=== PATIENT | male | born 1985 | race Caucasian/White ===

== ENCOUNTER 2019-04-06 22:05 | Emergency (ER) | payer OTHER ==
[2019-04-06 22:17] VITALS: BMI 31.3
[2019-04-06] MEDS ORDERED: ACETAMINOPHEN 500 MG TABLET (FP) PO ONE (23:25)
--- NOTE | 2019-04-06 23:25 | PDOC ---
*Physical Exam - Vital Signs Last Vital Signs Temp Pulse Resp BP Pulse Ox 98.0 F 104 H 18 125/82 98 04/06/19 22:14 04/06/19 22:14 04/06/19 22:14 04/06/19 22:14 04/06/19 22:14 Medical Decision Making - Medical Decision Making 04/06/19 23:25 Patient seen by the advanced practice provider under my supervision. Ancillary testing reviewed as necessary. I agree with plan as outlined by the advanced practice provider. Discharge - Discharge Information Problems reviewed: Yes Clinical Impression/Diagnosis: Foot pain, left Condition: Stable Disposition: HOME - Follow up/Referral Referrals: Bakari Pryor DPM [Staff Physician] - - Patient Discharge Instructions Additional Instructions: Take Tylenol as needed for pain. You have been given a referral for podiatry. Call to schedule an appointment for reevaluation. Return to the emergency department for any new or worsening symptoms. Thank you very much for choosing us to provide your emergent healthcare needs. - Post Discharge Activity
[2019-04-06] MEDS ORDERED: ACETAMINOPHEN 325 MG TABLET (FP) ONE (23:45)
[2019-04-07] MEDS ORDERED: ACETAMINOPHEN 500 MG TABLET (FP) PO ONE (00:01)
--- NOTE | 2019-04-07 00:57 | PDOC ---
History of Present Illness - General Chief Complaint: Wound Stated Complaint: SWOLLEN FEET Time Seen by Provider: 04/06/19 23:20 History Source: Patient Exam Limitations: No Limitations - History of Present Illness Initial Comments: 04/07/19 00:52 HISTORY OF PRESENT ILLNESS: 34-year-old male past medical history of diabetes presents emergency department for evaluation of left foot pain for 1 week after being stepped on. Patient noted increased pain to the MTP of the third toe of the left foot. He denies any wounds, redness, discharge or swelling. No recent travel or sick contacts. PAST MEDICAL HISTORY: NIDDM SURGICAL HISTORY: Left first and second toe amputation ALLERGIES: No known drug allergies REVIEW OF SYSTEMS General/Constitutional: Denies fever or chills. Denies weakness, weight change. HEENT: Denies change in vision. Denies ear pain or discharge. Denies sore throat. Cardiovascular: Denies chest pain or shortness of breath. Respiratory: Denies cough, wheezing, or hemoptysis. Gastrointestinal: Denies nausea, vomiting, diarrhea or constipation. Denies rectal bleeding. Genitourinary: Denies dysuria, frequency, or change in urination. Musculoskeletal: See HPI Skin and breasts: Denies rash or easy bruising. Neurologic: Denies headache, vertigo, loss of consciousness, or loss of sensation. Psychiatric: Denies depression or anxiety. Endocrine: Denies increased thirst. Denies abnormal weight change. Hematologic/Lymphatic: Denies anemia, easy bleeding, or history of blood clots. Allergic/Immunologic: Denies hives or skin allergy. Denies latex allergy. PHYSICAL EXAM General Appearance: Well-appearing, appropriately dressed. No apparent distress , no intoxication. Vascular Pulses: Dorsalis-Pedis (R): 2+, Dorsalis-Pedis (L): 2+ Musculoskeletal/Extremities: Normal inspection. FROM of all extremities, normal capillary refill. Pelvis Stable. No CVA tenderness. No pedal edema, swelling, erythema or deformity. First and second toes on the left foot previous amputation. No erythema, open wounds, discharge or drainage present. Tender to palpation over the MTP of the third digit. No bony deformity, crepitus or step-off present. Neurovascularly intact. Integumentary: Appropriate color, dry, warm. No cyanosis, erythema, jaundice or rash Neurologic: instructional systems designer II-XII intact. Fully oriented, alert. Appropriate mood/affect. Motor strength 5/5. No appreciable EOM palsy, facial droop or sensory deficit. Past History - Past Medical History Allergies/Adverse Reactions: Allergies Allergy/AdvReac Type Severity Reaction Status Date / Time No Known Allergies Allergy Verified 04/06/19 22:14 - Psycho Social/Smoking Cessation Hx Smoking History: Current every day smoker Number of Cigarettes Smoked Daily: 20 Information on smoking cessation initiated: No Hx Alcohol Use: Yes (daily) Drug/Substance Use Hx: Yes (marijuana, coccaine) *Physical Exam - Vital Signs Last Vital Signs Temp Pulse Resp BP Pulse Ox 98.7 F 112 H 20 131/79 98 04/06/19 22:30 04/06/19 22:30 04/06/19 22:30 04/06/19 22:30 04/06/19 22:30 ED Treatment Course - RADIOLOGY Radiology Studies Ordered: Category Date Time Status FOOT-LEFT [RAD] Stat Radiology 04/06/19 23:24 Taken - Medications Given in the ED: ED Medications Discontinued Medications Generic Name Dose Route Start Last Admin Trade Name Beverly PRN Reason Stop Dose Admin Acetaminophen 1,000 mg 04/06/19 23:25 04/07/19 00:08 Tylenol - PO 04/07/19 00:01 Not Given ONCE ONE Acetaminophen 975 mg 04/07/19 00:01 04/07/19 00:07 Tylenol - PO 04/07/19 00:02 975 mg ONCE ONE Administration Medical Decision Making - Medical Decision Making 04/07/19 00:56 A/P: 34-year-old diabetic male with left foot pain after he was stepped on 1 week ago Tenderness to the MTP of the left third toe No evidence of infection Neurovascularly intact X-rays read by me: No acute fractures or dislocations are present Discharge home to follow-up with his primary doctor. Podiatry referral. Discharge - Discharge Information Problems reviewed: Yes Clinical Impression/Diagnosis: Foot pain, left Condition: Stable Disposition: HOME - Admission No - Follow up/Referral Referrals: Bakari Pryor DPM [Staff Physician] - - Patient Discharge Instructions Additional Instructions: Take Tylenol as needed for pain. You have been given a referral for podiatry. Call to schedule an appointment for reevaluation. Return to the emergency department for any new or worsening symptoms. Thank you very much for choosing us to provide your emergent healthcare needs. - Post Discharge Activity
[2019-04-07] MEDS ORDERED: KETOROLAC TROMETHAMINE 30 MG/1 ML VIAL IM ONE (01:15)
[2019-04-07] MEDS ORDERED: KETOROLAC TROMETHAMINE 30 MG/1 ML VIAL ONE (01:16)
[2019-04-07 01:33] VITALS: BP 123/79; PULSE 82; TEMP 99.1
== END 2019-04-07 01:25 | disposition home or self-care (01) ==
LOC: JER 22:05
PROC: 3E0233Z Introduction of Anti-inflammatory into Muscle, Percutaneous Approach (ICD-10-PCS; principal; 2019-04-06)
DX: M79.672 Pain in left foot (principal)
CPT/HCPCS: 73630-TC-LT; 96372; 99284-25

== ENCOUNTER 2020-01-02 18:18 | Emergency (ER) | payer OTHER ==
[2020-01-02 18:53] VITALS: BMI 31.3
[2020-01-02] MEDS ORDERED: ONDANSETRON 4 MG/2 ML VIAL IVPUSH ONE (19:27)
[2020-01-02] MEDS ORDERED: FOLIC ACID INJECTION - 1 MG, THIAMINE HCL 100 MG, MULTIVIT INJECTION ADULT 10 ML in SOD... IVPB ONE (19:27)
[2020-01-02] MEDS ORDERED: PANTOPRAZOLE SODIUM 40 MG VIAL IVPUSH ONE (19:27)
[2020-01-02] MEDS ORDERED: PANTOPRAZOLE SODIUM 40 MG VIAL ONE (20:00)
[2020-01-02 20:04] LABS: URINE APPEARANCE CLEAR; URINE BILIRUBIN NEGATIVE (NEGATIVE); URINE COLOR YELLOW; URINE GLUCOSE (UA) TRACE (NEGATIVE); URINE KETONE NEGATIVE (NEGATIVE); URINE LEUK ESTERASE NEGATIVE (NEGATIVE); URINE NITRITE NEGATIVE (NEGATIVE); URINE PROTEIN NEGATIVE (NEGATIVE)
[2020-01-02 20:17] LABS: OPIATES, URI NEGATIVE ng/ml (CUTOFF=300); URINE BENZODIAZEPINES NEGATIVE ng/ml (CUTOFF=200)
[2020-01-02 20:18] LABS: PHENCYCLIDINE,URINE NEGATIVE ng/ml (CUTOFF=25); URINE BARBITURATES NEGATIVE ng/ml (CUTOFF=200)
[2020-01-02 20:25] LABS: METHADONE, UR NEGATIVE ng/ml (CUTOFF=300); URINE AMPHETAMINES NEGATIVE ng/ml (CUTOFF=500)
[2020-01-02 20:29] LABS: BASO % 0.8 % (0-2.0); EOS % 1.7 % (0-4.5); HEMATOCRIT 40.5 % (35.4-49); HEMOGLOBIN 14.1 GM/dL (11.7-16.9); LYMPH % 24.2 % (8-40); MEAN CELL VOLUME 94.5 fl (80-96); MEAN PLT VOLUME 10.1 fl (7.5-11.1); MONO % 10.4 % (3.8-10.2); NEUT % 62.9 % (42.8-82.8); PLATELET COUNT 150 K/MM3 (134-434); RBC 4.28 M/mm3 (4.00-5.60); RDW 12.8 % (11.9-15.9); WHITE BLOOD COUNT 4.4 K/mm3 (4.0-10.0)
[2020-01-02 20:30] LABS: COCAINE, UR POSITIVE ng/ml (CUTOFF=300)
[2020-01-02 20:39] LABS: VENOUS BASE EXCESS -3.1 mmol/L (-2-2); VENOUS O2 SATURATION 54.3 % (70-80); VENOUS PH 7.346 (7.310-7.410)
[2020-01-02 20:50] LABS: POTASSIUM 4.8 mmol/L (3.5-5.1)
[2020-01-02 20:54] LABS: ALBUMIN 3.7 g/dl (3.4-5.0); CALCIUM 9.1 mg/dL (8.5-10.1)
[2020-01-02 20:58] LABS: CREATININE 0.8 mg/dL (0.55-1.3)
[2020-01-02 20:59] LABS: BILIRUBIN,TOTAL 0.4 mg/dL (0.2-1); TOT PROT 7.1 g/dl (6.4-8.2)
[2020-01-02] MEDS ORDERED: MAG HYDROX/AL HYDROX/SIMETH 30 ML UNIT-DOSE CUP PO ONE (22:27)
[2020-01-02] MEDS ORDERED: MAG HYDROX/AL HYDROX/SIMETH 30 ML UNIT-DOSE CUP ONE (22:31)
[2020-01-02 23:47] VITALS: BP 122/85; PULSE 73; TEMP 99.6
== END 2020-01-02 23:47 | disposition home or self-care (01) ==
LOC: JER 18:18
PROC: 3E033GC Introduction of Other Therapeutic Substance into Peripheral Vein, Percutaneous Approach (ICD-10-PCS; principal; 2020-01-02)
PROC: 3E033GC Introduction of Other Therapeutic Substance into Peripheral Vein, Percutaneous Approach (ICD-10-PCS; 2020-01-02)
PROC: 3E033GC Introduction of Other Therapeutic Substance into Peripheral Vein, Percutaneous Approach (ICD-10-PCS; 2020-01-02)
DX: K29.20 Alcoholic gastritis without bleeding (principal); F14.10 Cocaine abuse, uncomplicated
CPT/HCPCS: 36415; 71045-TC-FY; 80053; 80307; 81003; 82803; 83690; 83735; 85025; 93005; 93010; 99285-25

== ENCOUNTER 2020-09-15 13:46 | Emergency (ER) | payer OTHER ==
[2020-09-15 13:52] VITALS: TEMP 97.8; BMI 31.3
[2020-09-15] MEDS ORDERED: DALBAVANCIN HCL 1,500 MG in DEXTROSE 5%-WATER - 500 ML IVPB ONE (14:27)
[2020-09-15 14:39] LABS: BASO % 0.8 % (0-2.0); EOS % 2.3 % (0-4.5); HEMATOCRIT 39.3 % (35.4-49); HEMOGLOBIN 13.5 GM/dL (11.7-16.9); LYMPH % 20.9 % (8-40); MCH 31.1 pg (25.7-33.7); MCHC 34.4 g/dl (32.0-35.9); MEAN CELL VOLUME 90.3 fl (80-96); MEAN PLT VOLUME 9.4 fl (7.5-11.1); MONO % 13.3 % (3.8-10.2); NEUT % 62.7 % (42.8-82.8); PLATELET COUNT 135 10^3/uL (134-434); RBC 4.35 M/mm3 (4.00-5.60); RDW 12.9 % (11.9-15.9); WHITE BLOOD COUNT 3.9 K/mm3 (4.0-10.0)
[2020-09-15] MEDS ORDERED: DALBAVANCIN HCL 500 MG VIAL (RESTRICTED TO ID ONLY) IVPB ONE ×2 (14:42→14:44)
[2020-09-15 15:21] LABS: ERYTHROCYTE SEDIMENTATION RATE 16 mm/hr (0-10)
[2020-09-15 16:02] LABS: ALBUMIN 3.9 g/dl (3.4-5.0); BILIRUBIN,TOTAL 0.3 mg/dL (0.2-1); BLOOD UREA NITROGEN 8.5 mg/dL (7-18); CALCIUM 9.3 mg/dL (8.5-10.1); CREATININE 0.8 mg/dL (0.55-1.3)
[2020-09-15] MEDS ORDERED: SODIUM CHLORIDE 0.9% 500 ML INFUS.BAG IV ONE (16:47)
[2020-09-15 16:48] VITALS: BP 144/84; PULSE 74
[2020-09-15 17:17] LABS: ALBUMIN 3.7 g/dl (3.4-5.0); BLOOD UREA NITROGEN 7.8 mg/dL (7-18); CALCIUM 8.8 mg/dL (8.5-10.1)
[2020-09-15 17:20] LABS: CREATININE 0.7 mg/dL (0.55-1.3)
[2020-09-15 17:22] LABS: BILIRUBIN,TOTAL 0.5 mg/dL (0.2-1); TOT PROT 7.7 g/dl (6.4-8.2)
[2020-09-16] MEDS ORDERED: INSULIN (NOVOLOG) ASPART 100 UNITS/ML 10ML VIAL SQ SCH (07:00)
[2020-09-16] MEDS ORDERED: Insulin (LOG) Aspart 100 UNITS/ML VIAL SQ ONE (17:08)
== END 2020-09-15 18:54 | disposition home or self-care (01) ==
LOC: JER 13:46
DX: L97.529 Non-pressure chronic ulcer of other part of left foot with unspecified severity (principal)
CPT/HCPCS: 36415; 73630-TC-LT; 80053; 82962; 83036; 83605; 85025; 85651; 86140; 87040; 99284-25; J0875

== ENCOUNTER 2020-09-28 06:13 | Inpatient (IN) | payer OTHER ==
[2020-09-28] MEDS ORDERED: ACETAMINOPHEN 1000 MG/100 ML VIAL (NON FORMULARY) IVPB ONE (07:32)
[2020-09-28] MEDS ORDERED: VANCOMYCIN 1 GM in D5W (PRE-DOCKED) 1,000 MG/250 ML IVPB ONE (07:32)
[2020-09-28 09:08] LABS: EOS % 4.7 % (0-4.5); HEMATOCRIT 40.8 % (35.4-49); HEMOGLOBIN 14.3 GM/dL (11.7-16.9); LYMPH % 38.5 % (8-40); MCH 32.2 pg (25.7-33.7); MEAN CELL VOLUME 92.1 fl (80-96); MEAN PLT VOLUME 10.1 fl (7.5-11.1); MONO % 10.8 % (3.8-10.2); PLATELET COUNT 153 10^3/uL (134-434); RBC 4.43 M/mm3 (4.00-5.60); RDW 12.9 % (11.9-15.9)
[2020-09-28 09:21] LABS: CHLORIDE 99 mmol/L (98-107); SODIUM 136 mmol/L (136-145)
[2020-09-28 09:22] LABS: CALCIUM 8.4 mg/dL (8.5-10.1)
[2020-09-28 09:23] LABS: ALBUMIN 4.1 g/dl (3.4-5.0); ANION GAP 12 MMOL/L (8-16); BLOOD UREA NITROGEN 6.6 mg/dL (7-18); CO2 24 mmol/L (21-32); GLUCOSE,RANDOM 329 mg/dL (74-106)
[2020-09-28 09:26] LABS: CREATININE 0.7 mg/dL (0.55-1.3); SGOT/AST 41 U/L (15-37); SGPT/ALT 43 U/L (13-61)
[2020-09-28 09:28] LABS: BILIRUBIN,TOTAL 0.3 mg/dL (0.2-1); TOT PROT 8.5 g/dl (6.4-8.2)
[2020-09-28 09:29] LABS: ALK PHOS 105 U/L (45-117)
[2020-09-28] MEDS ORDERED: SODIUM CHLORIDE 0.9% 500 ML INFUS.BAG IV ONE (09:31)
[2020-09-28] MEDS ORDERED: Insulin (LOG) Aspart 100 UNITS/ML VIAL SQ ONE (09:31)
[2020-09-28] MEDS ORDERED: INSULIN SLIDING SCALE (NOVOLOG) 1 VIAL SQ ONE ×2 (10:13→22:56)
[2020-09-28 10:22] LABS: ERYTHROCYTE SEDIMENTATION RATE 14 mm/hr (0-10)
[2020-09-28] MEDS: SODIUM CHLORIDE 1,000 ML IV SCH (11:39)
[2020-09-28] MEDS ORDERED: ACETAMINOPHEN 1000 MG/100 ML VIAL (NON FORMULARY) IVPB PRN (14:38)
[2020-09-28] MEDS: NICOTINE 14 MG/24 HOURS TOPICAL PATCH TD SCH (15:00)
[2020-09-28] MEDS: INSULIN SLIDING SCALE (NOVOLOG) 1 VIAL SQ SCH ×2 (17:07→23:03)
[2020-09-28] MEDS ORDERED: FAMOTIDINE 20 MG TABLET ONE (22:56)
[2020-09-28] MEDS: FAMOTIDINE 20 MG TABLET PO SCH (23:04)
[2020-09-28] MEDS ORDERED: ACETAMINOPHEN INJECTION 100 ML IVPB ONE (23:23)
[2020-09-29] MEDS: SODIUM CHLORIDE 1,000 ML IV SCH ×3 (01:56→21:09)
[2020-09-29] MEDS: INSULIN SLIDING SCALE (NOVOLOG) 1 VIAL SQ SCH ×4 (06:57→21:05)
[2020-09-29 07:47] LABS: INR 1.02 (0.83-1.09); PROTHROMBIN TIME (PATIENT) 12.5 SEC (9.7-13.0)
[2020-09-29 07:50] LABS: ACTIVATED PTT 28.7 SECONDS (25.2-36.5); EOS % 3.2 % (0-4.5); HEMATOCRIT 37.1 % (35.4-49); HEMOGLOBIN 12.7 GM/dL (11.7-16.9); MCH 31.4 pg (25.7-33.7); MCHC 34.2 g/dl (32.0-35.9); MEAN CELL VOLUME 91.7 fl (80-96); MEAN PLT VOLUME 9.8 fl (7.5-11.1); MONO % 10.8 % (3.8-10.2); PLATELET COUNT 112 10^3/uL (134-434); RBC 4.05 M/mm3 (4.00-5.60); RDW 12.9 % (11.9-15.9); WHITE BLOOD COUNT 4.7 K/mm3 (4.0-10.0)
[2020-09-29 07:57] LABS: CALCIUM 7.7 mg/dL (8.5-10.1)
[2020-09-29 07:58] LABS: ALBUMIN 3.2 g/dl (3.4-5.0); BLOOD UREA NITROGEN 11.4 mg/dL (7-18); MAGNESIUM 1.9 mg/dL (1.8-2.4)
[2020-09-29 08:01] LABS: CREATININE 0.5 mg/dL (0.55-1.3); PHOSPHOROUS 2.8 mg/dL (2.5-4.9)
[2020-09-29 08:02] LABS: BILIRUBIN,TOTAL 0.5 mg/dL (0.2-1)
[2020-09-29 08:03] LABS: TOT PROT 6.7 g/dl (6.4-8.2)
[2020-09-29] MEDS ORDERED: MAGNESIUM OXIDE 400 MG TABLET (FP) PO ONE ×2 (08:19→14:18)
[2020-09-29] MEDS ORDERED: MAGNESIUM SULF 50% (8.12 MEQ/2 ML-1 GM VIAL) IVPB ONE (10:10)
[2020-09-29] MEDS: NICOTINE 14 MG/24 HOURS TOPICAL PATCH TD SCH (10:56)
[2020-09-29] MEDS: MULTIVITAMINS (DAILY MVI) TABLET (FP) PO SCH (10:56)
[2020-09-29] MEDS: THIAMINE HCL 100 MG TABLET (FP) PO SCH (10:56)
[2020-09-29] MEDS: FOLIC ACID 1 MG TABLET (FP) PO SCH (10:56)
[2020-09-29] MEDS: FAMOTIDINE 20 MG TABLET PO SCH ×2 (10:56→21:05)
[2020-09-29] MEDS ORDERED: PT OWN MED DRAWER 7, Y5N ONE (15:09)
[2020-09-29] MEDS ORDERED: INSULIN (NOVOLOG) ASPART 100 UNITS/ML 10ML VIAL ONE ×2 (16:55→20:28)
[2020-09-29] MEDS: ACETAMINOPHEN 325 MG TABLET (FP) PO PRN (21:04)
[2020-09-30] MEDS: INSULIN SLIDING SCALE (NOVOLOG) 1 VIAL SQ SCH ×3 (06:00→17:28)
[2020-09-30] MEDS: SODIUM CHLORIDE 1,000 ML IV SCH ×2 (06:05→12:16)
[2020-09-30 09:00] LABS: BASO % 0.7 % (0-2.0); EOS % 4.5 % (0-4.5); HEMATOCRIT 39.2 % (35.4-49); HEMOGLOBIN 13.6 GM/dL (11.7-16.9); LYMPH % 27.7 % (8-40); MCHC 34.7 g/dl (32.0-35.9); MEAN CELL VOLUME 92.2 fl (80-96); MEAN PLT VOLUME 10.1 fl (7.5-11.1); MONO % 10.7 % (3.8-10.2); NEUT % 56.4 % (42.8-82.8); PLATELET COUNT 125 10^3/uL (134-434); RBC 4.25 M/mm3 (4.00-5.60); RDW 12.8 % (11.9-15.9)
[2020-09-30] MEDS: MULTIVITAMINS (DAILY MVI) TABLET (FP) PO SCH (09:02)
[2020-09-30] MEDS: THIAMINE HCL 100 MG TABLET (FP) PO SCH (09:02)
[2020-09-30] MEDS: FAMOTIDINE 20 MG TABLET PO SCH (09:02)
[2020-09-30] MEDS: FOLIC ACID 1 MG TABLET (FP) PO SCH (09:02)
[2020-09-30] MEDS: NICOTINE 14 MG/24 HOURS TOPICAL PATCH TD SCH (09:02)
[2020-09-30 09:14] LABS: CALCIUM 8.4 mg/dL (8.5-10.1)
[2020-09-30 09:15] LABS: MAGNESIUM 2.2 mg/dL (1.8-2.4)
[2020-09-30 09:21] LABS: CREATININE 0.6 mg/dL (0.55-1.3)
[2020-09-30 09:22] LABS: PHOSPHOROUS 2.8 mg/dL (2.5-4.9)
[2020-09-30] MEDS: ACETAMINOPHEN 325 MG TABLET (FP) PO PRN (12:10)
[2020-09-30 14:16] VITALS: BP 149/97; PULSE 74; TEMP 99.1
[2020-09-30 14:42] VITALS: BMI 28.0
== END 2020-09-30 18:38 | disposition home or self-care (01) | DRG 380 ==
LOC: JER 06:13 → MERGE 10:56 → JERBED 10:56 → J7W 09-29 01:37
PROVIDERS: ADMIT Internal Medicine; ATTEND Internal Medicine
DX: E11.621 Type 2 diabetes mellitus with foot ulcer (principal); L97.529 Non-pressure chronic ulcer of other part of left foot with unspecified severity; F10.10 Alcohol abuse, uncomplicated; F14.10 Cocaine abuse, uncomplicated; F12.10 Cannabis abuse, uncomplicated; F17.210 Nicotine dependence, cigarettes, uncomplicated; E11.65 Type 2 diabetes mellitus with hyperglycemia; Z79.84 Long term (current) use of oral hypoglycemic drugs; M71.22 Synovial cyst of popliteal space [Baker], left knee
CPT/HCPCS: 36415; 73630-TC-LT; 73718-TC-LT; 80048; 80053; 82962; 83735; 84100; 85025; 85610; 85651; 85730; 86140; 86850; 86900; 86901; 87040; 87070; 87186; 87205; 93005; 93010; 93971-TC; 99285-25; C9803; J0131; U0003; U0005

== ENCOUNTER 2020-10-05 02:09 | Emergency (ER) | payer OTHER ==
[2020-10-05 02:16] VITALS: BMI 28.0
[2020-10-05 04:34] LABS: BASO % 1.7 % (0-2.0); EOS % 4.4 % (0-4.5); HEMATOCRIT 39.4 % (35.4-49); HEMOGLOBIN 13.6 GM/dL (11.7-16.9); MCH 31.5 pg (25.7-33.7); MCHC 34.6 g/dl (32.0-35.9); MEAN CELL VOLUME 91.1 fl (80-96); MEAN PLT VOLUME 9.7 fl (7.5-11.1); MONO % 12.6 % (3.8-10.2); NEUT % 39.3 % (42.8-82.8); PLATELET COUNT 139 10^3/uL (134-434); RBC 4.32 M/mm3 (4.00-5.60); RDW 13.3 % (11.9-15.9)
[2020-10-05 04:35] LABS: VENOUS BASE EXCESS -0.5 mmol/L (-2-2); VENOUS O2 SATURATION 39.6 % (70-80); VENOUS PCO2 54.2 mmHg (38-52); VENOUS PH 7.311 (7.310-7.410)
[2020-10-05 04:50] LABS: INR 1.02 (0.83-1.09); PROTHROMBIN TIME (PATIENT) 12.5 SEC (9.7-13.0)
[2020-10-05 04:52] LABS: CHLORIDE 100 mmol/L (98-107); SODIUM 136 mmol/L (136-145)
[2020-10-05 04:54] LABS: CALCIUM 8.5 mg/dL (8.5-10.1)
[2020-10-05 04:55] LABS: ANION GAP 7 MMOL/L (8-16); BLOOD UREA NITROGEN 6.8 mg/dL (7-18); CO2 29 mmol/L (21-32); GLUCOSE,RANDOM 327 mg/dL (74-106)
[2020-10-05 04:58] LABS: CREATININE 0.8 mg/dL (0.55-1.3); SGOT/AST 36 U/L (15-37); SGPT/ALT 40 U/L (13-61)
[2020-10-05 04:59] LABS: BILIRUBIN,TOTAL 0.2 mg/dL (0.2-1)
[2020-10-05 05:00] LABS: TOT PROT 8.3 g/dl (6.4-8.2)
[2020-10-05] MEDS ORDERED: LACTATED RINGERS SOLUTION 1000 ML INFUS.BAG IV ONE (05:02)
[2020-10-05 05:09] LABS: ALBUMIN 4.2 g/dl (3.4-5.0); ALK PHOS 79 U/L (45-117)
[2020-10-05 07:52] VITALS: BP 98/62; PULSE 91; TEMP 98.2
== END 2020-10-05 10:35 | disposition home or self-care (01) ==
LOC: JER 02:09
DX: F10.10 Alcohol abuse, uncomplicated (principal); S09.90XA Unspecified injury of head, initial encounter; W01.0XXA Fall on same level from slipping, tripping and stumbling without subsequent striking against object, initial encounter
CPT/HCPCS: 36415; 70450-TC; 72125-TC; 80053; 82010; 82550; 82553; 82803; 82962; 84484; 85025; 85610; 85730; 99285-25

== ENCOUNTER 2020-10-26 01:24 | Emergency (ER) | payer OTHER ==
[2020-10-26 02:23] VITALS: BMI 29.2
[2020-10-26] MEDS ORDERED: CLINDAMYCIN HCL 150 MG CAPSULE (FP) PO ONE (04:00)
[2020-10-26] MEDS ORDERED: CLINDAMYCIN HCL 150 MG CAPSULE (FP) ONE (04:07)
[2020-10-26 04:26] LABS: BASO % 0.7 % (0-2.0); EOS % 2.9 % (0-4.5); HEMATOCRIT 38.6 % (35.4-49); HEMOGLOBIN 13.5 GM/dL (11.7-16.9); LYMPH % 37.1 % (8-40); MCH 31.5 pg (25.7-33.7); MEAN CELL VOLUME 90.2 fl (80-96); MONO % 9.6 % (3.8-10.2); NEUT % 49.7 % (42.8-82.8); PLATELET COUNT 122 10^3/uL (134-434); RBC 4.28 M/mm3 (4.00-5.60); RDW 13.3 % (11.9-15.9); WHITE BLOOD COUNT 5.4 K/mm3 (4.0-10.0)
[2020-10-26 04:41] LABS: ALBUMIN 3.8 g/dl (3.4-5.0); BLOOD UREA NITROGEN 6.9 mg/dL (7-18); CALCIUM 8.6 mg/dL (8.5-10.1)
[2020-10-26 04:44] LABS: CREATININE 0.7 mg/dL (0.55-1.3)
[2020-10-26 04:46] LABS: BILIRUBIN,TOTAL 0.2 mg/dL (0.2-1)
[2020-10-26 06:13] VITALS: BP 95/62; PULSE 79; TEMP 100
== END 2020-10-26 06:14 ==
LOC: JER 01:24
DX: L97.529 Non-pressure chronic ulcer of other part of left foot with unspecified severity (principal)
CPT/HCPCS: 36415; 73630-TC-LT; 80053; 85025; 87070; 87077; 87186; 87205; 99284-25

== ENCOUNTER 2021-05-15 23:30 | Inpatient (IN) | payer OTHER ==
[2021-05-16 01:38] LABS: BASO % 0.7 % (0-2.0); EOS % 2.9 % (0-4.5); HEMATOCRIT 38.1 % (35.4-49); MCH 30.6 pg (25.7-33.7); MCHC 34.2 g/dl (32.0-35.9); MEAN CELL VOLUME 89.4 fl (80-96); MEAN PLT VOLUME 9.9 fl (7.5-11.1); MONO % 12.5 % (3.8-10.2); NEUT % 56.9 % (42.8-82.8); PLATELET COUNT 125 10^3/uL (134-434); RBC 4.26 M/mm3 (4.00-5.60); RDW 14.9 % (11.9-15.9); WHITE BLOOD COUNT 3.8 K/mm3 (4.0-10.0)
[2021-05-16] MEDS ORDERED: PIPERACILLIN/TAZOB 4.5 GM 4.5 GM in DEXTROSE 5%-WATER 100 ML IVPB ONE (01:59)
[2021-05-16] MEDS ORDERED: VANCOMYCIN 1 GM in D5W (PRE-DOCKED) 1,000 MG/250 ML IVPB ONE (02:00)
[2021-05-16 02:12] LABS: PROTHROMBIN TIME (PATIENT) 11.5 SEC (9.7-13.0)
[2021-05-16] MEDS ORDERED: PIPERACILLIN/TAZOB 4.5 GM 4.5 GM/100 ML BAG IVPB ONE (02:12)
[2021-05-16] MEDS ORDERED: VANCOMYCIN 1 GRAM (PRE-DOCKED) 1,000 MG/250 ML BAG IVPB ONE (02:12)
[2021-05-16 02:15] LABS: ACTIVATED PTT 33.6 SECONDS (25.2-36.5)
[2021-05-16 02:17] LABS: CHLORIDE 102 mmol/L (98-107); SODIUM 136 mmol/L (136-145)
[2021-05-16 02:19] LABS: CALCIUM 9.4 mg/dL (8.5-10.1)
[2021-05-16 02:20] LABS: ALBUMIN 3.8 g/dl (3.4-5.0); ANION GAP 5 MMOL/L (8-16); BLOOD UREA NITROGEN 15.5 mg/dL (7-18); CO2 30 mmol/L (21-32); MAGNESIUM 2.3 mg/dL (1.8-2.4)
[2021-05-16 02:22] LABS: CREATININE 0.9 mg/dL (0.55-1.3); SGPT/ALT 24 U/L (13-61)
[2021-05-16 02:23] LABS: SGOT/AST 23 U/L (15-37)
[2021-05-16 02:24] LABS: BILIRUBIN,TOTAL 0.3 mg/dL (0.2-1)
[2021-05-16 02:25] LABS: ALK PHOS 113 U/L (45-117)
[2021-05-16 02:26] LABS: TOT PROT 7.4 g/dl (6.4-8.2)
[2021-05-16 02:33] LABS: GLUCOSE,RANDOM 461 mg/dL (74-106)
[2021-05-16] MEDS ORDERED: SODIUM CHLORIDE 0.9% 500 ML INFUS.BAG IV ONE (02:35)
[2021-05-16 03:03] LABS: ERYTHROCYTE SEDIMENTATION RATE 16 mm/hr (0-10)
[2021-05-16] MEDS ORDERED: LORazepam 1 MG TABLET PO PRN ×2 (04:34→09:54)
[2021-05-16] MEDS ORDERED: FOLIC ACID INJECTION - 1 MG, THIAMINE HCL 100 MG, MULTIVIT INJECTION ADULT 10 ML in SOD... IVPB ONE (04:53)
[2021-05-16] MEDS ORDERED: INSULIN (NOVOLOG) ASPART 100 UNITS/ML 10ML VIAL SQ ONE (04:55)
[2021-05-16] MEDS: INSULIN SLIDING SCALE (NOVOLOG) 1 VIAL SQ SCH ×4 (06:38→22:14)
[2021-05-16 06:47] LABS: ALBUMIN 3.4 g/dl (3.4-5.0); BLOOD UREA NITROGEN 13.8 mg/dL (7-18); CALCIUM 8.4 mg/dL (8.5-10.1)
[2021-05-16 06:50] LABS: CREATININE 0.7 mg/dL (0.55-1.3); PHOSPHOROUS 4.3 mg/dL (2.5-4.9)
[2021-05-16 06:52] LABS: BILIRUBIN,TOTAL 0.4 mg/dL (0.2-1); TOT PROT 6.6 g/dl (6.4-8.2)
[2021-05-16 06:56] VITALS: BMI 28.6
[2021-05-16] MEDS ORDERED: INSULIN (LEVEMIR) 100 UNITS/ML UNITS SQ SCH ×2 (07:00→22:00)
[2021-05-16 07:02] LABS: METHADONE, UR NEGATIVE (NEGATIVE); PHENCYCLIDINE,URINE NEGATIVE (NEGATIVE); URINE BENZODIAZEPINES NEGATIVE (NEGATIVE)
[2021-05-16 07:03] LABS: OPIATES, URI NEGATIVE (NEGATIVE); URINE BARBITURATES NEGATIVE (NEGATIVE)
[2021-05-16] MEDS ORDERED: THIAMINE HCL 200 MG/2 ML VIAL IVPB ONE ×2 (07:11→18:00)
[2021-05-16 07:39] LABS: COCAINE, UR POSITIVE (NEGATIVE); URINE AMPHETAMINES NEGATIVE (NEGATIVE)
[2021-05-16 08:06] LABS: BASO % 0.6 % (0-2.0); EOS % 3.1 % (0-4.5); HEMATOCRIT 36.2 % (35.4-49); HEMOGLOBIN 12.3 GM/dL (11.7-16.9); LYMPH % 30.1 % (8-40); MCH 30.2 pg (25.7-33.7); MCHC 33.9 g/dl (32.0-35.9); MEAN CELL VOLUME 89.1 fl (80-96); MEAN PLT VOLUME 10.1 fl (7.5-11.1); MONO % 12.5 % (3.8-10.2); NEUT % 53.7 % (42.8-82.8); PLATELET COUNT 114 10^3/uL (134-434); RBC 4.06 M/mm3 (4.00-5.60); RDW 14.8 % (11.9-15.9); WHITE BLOOD COUNT 3.9 K/mm3 (4.0-10.0)
[2021-05-16] MEDS ORDERED: PIPERACILLIN/TAZOB 3.375 GM 3.375 GM in DEXTROSE 5%-WATER - 50 ML IVPB SCH (09:00)
[2021-05-16 09:14] LABS: PH,URINE 5.5 (5.0-8.0); URINE APPEARANCE CLEAR; URINE BILIRUBIN NEGATIVE (NEGATIVE); URINE COLOR YELLOW; URINE GLUCOSE (UA) 3+ (NEGATIVE); URINE KETONE NEGATIVE (NEGATIVE); URINE LEUK ESTERASE NEGATIVE (NEGATIVE); URINE NITRITE NEGATIVE (NEGATIVE); URINE PROTEIN NEGATIVE (NEGATIVE); URINE UROBILINOGEN 0.2 mg/dL (0.2-1.0)
[2021-05-16] MEDS ORDERED: DEXTROSE 5%-WATER - 50 ML IVPB ONE ×2 (09:24→17:52)
[2021-05-16] MEDS ORDERED: PIPERACILLIN/TAZOBACTAM 3.375 GM VIAL IVPB ONE ×3 (09:24→17:51)
[2021-05-16] MEDS ORDERED: HYDROCHLOROTHIAZIDE 12.5 MG CAPSULE (FP) PO SCH (10:00)
[2021-05-16] MEDS: ENOXAPARIN NA (PORCINE) 40 MG/0.4 ML DISP.SYRIN SQ SCH (10:58)
[2021-05-16] MEDS: THIAMINE HCL 100 MG TABLET (FP) PO SCH (10:58)
[2021-05-16] MEDS: FOLIC ACID 1 MG TABLET (FP) PO SCH (10:58)
[2021-05-16] MEDS: NICOTINE 7 MG/24 HOURS TOPICAL PATCH TD SCH (14:29)
[2021-05-16] MEDS ORDERED: VANCOMYCIN PREMIX 1.5 GM 1,500 MG/300 ML BAG IVPB SCH (15:00)
[2021-05-16] MEDS: PIPERACILLIN/TAZOB 3.375 GM 3.375 GM in DEXTROSE 5%-WATER - 50 ML IVPB SCH (17:58)
[2021-05-16] MEDS: LISINOPRIL 20 MG TABLET PO SCH (22:11)
[2021-05-16] MEDS: INSULIN (LEVEMIR) 100 UNITS/ML UNITS SQ SCH (22:12)
[2021-05-17] MEDS ORDERED: PIPERACILLIN/TAZOBACTAM 3.375 GM VIAL IVPB ONE ×4 (01:43→18:04)
[2021-05-17] MEDS ORDERED: DEXTROSE 5%-WATER - 50 ML IVPB ONE ×3 (01:43→18:05)
[2021-05-17] MEDS: PIPERACILLIN/TAZOB 3.375 GM 3.375 GM in DEXTROSE 5%-WATER - 50 ML IVPB SCH ×3 (01:50→18:18)
[2021-05-17] MEDS: INSULIN (LEVEMIR) 100 UNITS/ML UNITS SQ SCH ×2 (06:22→21:53)
[2021-05-17] MEDS: INSULIN SLIDING SCALE (NOVOLOG) 1 VIAL SQ SCH ×4 (06:23→21:54)
[2021-05-17] MEDS ORDERED: INSULIN SLIDING SCALE (NOVOLOG) 1 VIAL SQ ONE (07:02)
[2021-05-17] MEDS ORDERED: INSULIN (LEVEMIR) 100 UNITS/ML UNITS SQ ONE (07:02)
[2021-05-17] MEDS ORDERED: PIPERACILLIN/TAZOB 3.375 GM 3.375 GM in DEXTROSE 5%-WATER - 50 ML IVPB SCH (09:00)
[2021-05-17] MEDS: ENOXAPARIN NA (PORCINE) 40 MG/0.4 ML DISP.SYRIN SQ SCH (10:16)
[2021-05-17] MEDS: THIAMINE HCL 100 MG TABLET (FP) PO SCH (10:16)
[2021-05-17] MEDS: NICOTINE 7 MG/24 HOURS TOPICAL PATCH TD SCH (10:16)
[2021-05-17] MEDS: FOLIC ACID 1 MG TABLET (FP) PO SCH (10:16)
[2021-05-17] MEDS ORDERED: VANCOMYCIN PREMIX 1.5 GM 1,500 MG/300 ML BAG IVPB SCH (15:00)
[2021-05-17] MEDS: LISINOPRIL 20 MG TABLET PO SCH (21:53)
[2021-05-18] MEDS ORDERED: DEXTROSE 5%-WATER - 50 ML IVPB ONE ×3 (01:44→17:07)
[2021-05-18] MEDS ORDERED: PIPERACILLIN/TAZOBACTAM 3.375 GM VIAL IVPB ONE ×3 (01:44→17:07)
[2021-05-18] MEDS: PIPERACILLIN/TAZOB 3.375 GM 3.375 GM in DEXTROSE 5%-WATER - 50 ML IVPB SCH ×5 (01:55→20:33)
[2021-05-18] MEDS: INSULIN SLIDING SCALE (NOVOLOG) 1 VIAL SQ SCH ×4 (06:23→21:12)
[2021-05-18] MEDS: INSULIN (LEVEMIR) 100 UNITS/ML UNITS SQ SCH ×2 (06:24→21:12)
[2021-05-18] MEDS: FOLIC ACID 1 MG TABLET (FP) PO SCH (09:20)
[2021-05-18] MEDS: THIAMINE HCL 100 MG TABLET (FP) PO SCH (09:20)
[2021-05-18] MEDS: ENOXAPARIN NA (PORCINE) 40 MG/0.4 ML DISP.SYRIN SQ SCH (09:20)
[2021-05-18] MEDS: NICOTINE 7 MG/24 HOURS TOPICAL PATCH TD SCH (09:20)
[2021-05-18] MEDS: LISINOPRIL 20 MG TABLET PO SCH (21:12)
[2021-05-19] MEDS ORDERED: DEXTROSE 5%-WATER - 50 ML IVPB ONE ×2 (01:07→09:14)
[2021-05-19] MEDS ORDERED: PIPERACILLIN/TAZOBACTAM 3.375 GM VIAL IVPB ONE ×2 (01:07→09:14)
[2021-05-19] MEDS: PIPERACILLIN/TAZOB 3.375 GM 3.375 GM in DEXTROSE 5%-WATER - 50 ML IVPB SCH ×2 (01:38→10:02)
[2021-05-19] MEDS ORDERED: glyBURIDE 5 MG TABLET PO SCH (07:00)
[2021-05-19 07:11] LABS: HEMATOCRIT 41.9 % (35.4-49); HEMOGLOBIN 13.9 GM/dL (11.7-16.9); MCH 29.8 pg (25.7-33.7); MCHC 33.3 g/dl (32.0-35.9); MEAN CELL VOLUME 89.5 fl (80-96); MEAN PLT VOLUME 9.9 fl (7.5-11.1); PLATELET COUNT 148 10^3/uL (134-434); RBC 4.68 M/mm3 (4.00-5.60); RDW 14.9 % (11.9-15.9); WHITE BLOOD COUNT 5.1 K/mm3 (4.0-10.0)
[2021-05-19 07:18] LABS: BLOOD UREA NITROGEN 15.9 mg/dL (7-18)
[2021-05-19 07:21] LABS: CREATININE 0.7 mg/dL (0.55-1.3)
[2021-05-19] MEDS ORDERED: AMINO ACIDS/PROTEIN HYDROLYS 30 ML LIQUID.PKT PO SCH (08:00)
[2021-05-19] MEDS ORDERED: THIAMINE HCL 100 MG TABLET (FP) PO SCH (10:00)
[2021-05-19] MEDS ORDERED: FOLIC ACID 1 MG TABLET (FP) PO SCH (10:00)
[2021-05-19] MEDS ORDERED: NICOTINE 7 MG/24 HOURS TOPICAL PATCH TD SCH (10:00)
[2021-05-19] MEDS ORDERED: ENOXAPARIN NA (PORCINE) 40 MG/0.4 ML DISP.SYRIN SQ SCH (10:00)
[2021-05-19] MEDS ORDERED: BACITRACIN 15 GM TUBE TOPICAL OINTMENT TP SCH (11:30)
[2021-05-19 14:37] VITALS: BP 102/63; PULSE 74; TEMP 98.6
[2021-05-19] MEDS ORDERED: LISINOPRIL 20 MG TABLET PO SCH (22:00)
== END 2021-05-19 17:45 | disposition home or self-care (01) | DRG 380 ==
LOC: JER 23:30 → JERBED 05-16 01:05 → J4S 05-16 06:25 → OBSVTOIN 05-18 08:36
PROVIDERS: ADMIT Internal Medicine; ATTEND Internal Medicine
PROC: 0JBR0ZZ Excision of Left Foot Subcutaneous Tissue and Fascia, Open Approach (ICD-10-PCS; principal; 2021-05-18)
DX: E11.621 Type 2 diabetes mellitus with foot ulcer (principal); E11.65 Type 2 diabetes mellitus with hyperglycemia; L97.529 Non-pressure chronic ulcer of other part of left foot with unspecified severity; I10 Essential (primary) hypertension; F10.10 Alcohol abuse, uncomplicated; F19.10 Other psychoactive substance abuse, uncomplicated
CPT/HCPCS: 36415; 73610-TC-LT-FY; 73630-TC-LT; 73718-TC-LT; 80048; 80053; 80307; 81003; 82962; 83036; 83605; 83735; 84100; 85025; 85027; 85610; 85651; 85730; 86140; 86850; 86900; 86901; 87040; 87070; 87186; 87205; 87811; 93005; 93010; 93926-TC; 99285-25; C9803-CS; G0378; U0003; U0005

== ENCOUNTER 2021-05-20 09:47 | Inpatient (IN) | payer OTHER ==
[2021-05-20] MEDS ORDERED: guaiFENesin 200 MG/10 ML 10 ML UNIT-DOSE CUPS PO PRN (10:55)
[2021-05-20] MEDS ORDERED: ACETAMINOPHEN 325 MG TABLET (FP) PO PRN (10:55)
[2021-05-20] MEDS ORDERED: LOPERAMIDE HCL 2 MG CAPSULE PO PRN (10:55)
[2021-05-20] MEDS ORDERED: MAGNESIUM CITRATE 300 ML BOTTLE PO PRN (10:55)
[2021-05-20] MEDS ORDERED: NICOTINE 10 MG CARTRIDGE (INHALER) IH PRN (10:55)
[2021-05-20] MEDS ORDERED: MAGNESIUM HYDROX 2400MG/30ML ORAL SUSPENSION 30 ML CUP PO PRN (10:55)
[2021-05-20] MEDS ORDERED: P-EPHED 60MG/TRIPROLIDI 2.5MG TABLET PO PRN (10:55)
[2021-05-20 11:38] VITALS: BMI 28.1
[2021-05-20] MEDS ORDERED: TUBERCULIN PPD 5 TU/0.1ML VIAL ID ONE (12:52)
[2021-05-20] MEDS: hydrOXYzine PAMOATE 25 MG CAPSULE (FP) PO SCH ×3 (13:09→21:48)
[2021-05-20] MEDS: INSULIN SLIDING SCALE (NOVOLOG) 1 VIAL SQ SCH (18:30)
[2021-05-20] MEDS: MELATONIN 5 MG TABLETS PO SCH (21:47)
[2021-05-20] MEDS: THIAMINE HCL 100 MG TABLET (FP) PO SCH (21:48)
[2021-05-20] MEDS: LISINOPRIL 20 MG TABLET PO SCH (21:48)
[2021-05-20] MEDS: IBUPROFEN 400 MG TABLET (FP) PO PRN (21:50)
[2021-05-21] MEDS: glyBURIDE 5 MG TABLET PO SCH (06:04)
[2021-05-21] MEDS: hydrOXYzine PAMOATE 25 MG CAPSULE (FP) PO SCH ×5 (06:04→21:07)
[2021-05-21] MEDS: INSULIN SLIDING SCALE (NOVOLOG) 1 VIAL SQ SCH ×2 (06:06→16:55)
[2021-05-21] MEDS ORDERED: INSULIN (NOVOLOG) ASPART 100 UNITS/ML 10ML VIAL ONE ×2 (06:56→17:27)
[2021-05-21] MEDS: PRENATAL VITAMINS W/ FOLIC ACID TABLET (FP) PO SCH (09:55)
[2021-05-21 10:33] LABS: PH,URINE 5.5 (5.0-8.0); URINE APPEARANCE CLEAR; URINE BILIRUBIN NEGATIVE (NEGATIVE); URINE COLOR YELLOW; URINE GLUCOSE (UA) 3+ (NEGATIVE); URINE KETONE NEGATIVE (NEGATIVE); URINE LEUK ESTERASE NEGATIVE (NEGATIVE); URINE NITRITE NEGATIVE (NEGATIVE); URINE PROTEIN NEGATIVE (NEGATIVE); URINE UROBILINOGEN 0.2 mg/dL (0.2-1.0)
[2021-05-21] MEDS: MAG HYDROX/AL HYDROX/SIMETH 30 ML UNIT-DOSE CUP PO PRN (14:31)
[2021-05-21] MEDS: MELATONIN 5 MG TABLETS PO SCH (21:06)
[2021-05-21] MEDS: LISINOPRIL 20 MG TABLET PO SCH (21:07)
[2021-05-21] MEDS: IBUPROFEN 400 MG TABLET (FP) PO PRN (21:08)
[2021-05-21] MEDS: THIAMINE HCL 100 MG TABLET (FP) PO SCH (21:10)
[2021-05-22] MEDS: hydrOXYzine PAMOATE 25 MG CAPSULE (FP) PO SCH ×5 (06:31→21:11)
[2021-05-22] MEDS: glyBURIDE 5 MG TABLET PO SCH (06:31)
[2021-05-22] MEDS ORDERED: INSULIN (NOVOLOG) ASPART 100 UNITS/ML 10ML VIAL ONE (06:35)
[2021-05-22] MEDS: INSULIN SLIDING SCALE (NOVOLOG) 1 VIAL SQ SCH ×2 (06:36→16:33)
[2021-05-22] MEDS: PRENATAL VITAMINS W/ FOLIC ACID TABLET (FP) PO SCH (09:57)
[2021-05-22] MEDS: MAG HYDROX/AL HYDROX/SIMETH 30 ML UNIT-DOSE CUP PO PRN (13:27)
[2021-05-22 14:43] LABS: HEMATOCRIT 39.6 % (35.4-49); HEMOGLOBIN 13.2 GM/dL (11.7-16.9); MCH 29.9 pg (25.7-33.7); MCHC 33.3 g/dl (32.0-35.9); MEAN PLT VOLUME 10.5 fl (7.5-11.1); PLATELET COUNT 158 10^3/uL (134-434); RDW 14.9 % (11.9-15.9); WHITE BLOOD COUNT 4.5 K/mm3 (4.0-10.0)
[2021-05-22 15:05] LABS: CALCIUM 9.5 mg/dL (8.5-10.1)
[2021-05-22 15:06] LABS: ALBUMIN 3.8 g/dl (3.4-5.0); BLOOD UREA NITROGEN 16.7 mg/dL (7-18)
[2021-05-22 15:08] LABS: CREATININE 0.7 mg/dL (0.55-1.3)
[2021-05-22 15:10] LABS: BILIRUBIN,TOTAL 0.4 mg/dL (0.2-1); TOT PROT 7.1 g/dl (6.4-8.2)
[2021-05-22 15:26] LABS: SYPHILIS W/ RPR CONF NON-REACTIVE (NONREACTIVE)
[2021-05-22] MEDS: LISINOPRIL 20 MG TABLET PO SCH (21:11)
[2021-05-22] MEDS: THIAMINE HCL 100 MG TABLET (FP) PO SCH (21:12)
[2021-05-22] MEDS: MELATONIN 5 MG TABLETS PO SCH (21:12)
[2021-05-22] MEDS: IBUPROFEN 400 MG TABLET (FP) PO PRN (22:47)
[2021-05-23] MEDS: IBUPROFEN 400 MG TABLET (FP) PO PRN (05:10)
[2021-05-23] MEDS: hydrOXYzine PAMOATE 25 MG CAPSULE (FP) PO SCH ×2 (05:58→09:49)
[2021-05-23] MEDS: glyBURIDE 5 MG TABLET PO SCH (06:02)
[2021-05-23] MEDS: INSULIN SLIDING SCALE (NOVOLOG) 1 VIAL SQ SCH (07:30)
[2021-05-23] MEDS ORDERED: INSULIN (NOVOLOG) ASPART 100 UNITS/ML 10ML VIAL ONE (07:33)
[2021-05-23 08:03] VITALS: TEMP 97.3
[2021-05-23 09:16] VITALS: BP 118/72; PULSE 81
[2021-05-23] MEDS: PRENATAL VITAMINS W/ FOLIC ACID TABLET (FP) PO SCH (09:49)
[2021-05-23] MEDS: MAG HYDROX/AL HYDROX/SIMETH 30 ML UNIT-DOSE CUP PO PRN (09:52)
[2021-05-23] MEDS ORDERED: BACITRACIN 0.9 GM PACKET TP ONE (11:35)
== END 2021-05-23 12:40 | disposition home or self-care (01) | DRG 772 ==
LOC: YASAS 09:47 → Y5N 10:33
PROVIDERS: ADMIT Allergy & Immunology; ATTEND Allergy & Immunology
PROC: HZ42ZZZ Group Counseling for Substance Abuse Treatment, Cognitive-Behavioral (ICD-10-PCS; principal; 2021-05-20)
DX: F10.20 Alcohol dependence, uncomplicated (principal); F14.10 Cocaine abuse, uncomplicated; F12.10 Cannabis abuse, uncomplicated; F17.210 Nicotine dependence, cigarettes, uncomplicated; E11.621 Type 2 diabetes mellitus with foot ulcer; E11.42 Type 2 diabetes mellitus with diabetic polyneuropathy; L97.528 Non-pressure chronic ulcer of other part of left foot with other specified severity; Z79.84 Long term (current) use of oral hypoglycemic drugs; Z89.412 Acquired absence of left great toe; Z89.422 Acquired absence of other left toe(s); Z28.310 Unvaccinated for COVID-19
CPT/HCPCS: 36415; 80053; 81003; 82962; 85027; 86780; 86803; C9803-CS; U0003; U0005

== ENCOUNTER 2021-06-12 19:52 | Inpatient (IN) | payer SELFPAY ==
[2021-06-12] MEDS ORDERED: ONDANSETRON *ODT* 4 MG TABLET SL PRN (20:32)
[2021-06-12] MEDS ORDERED: chlordiazePOXIDE HCL 25 MG CAPSULE PO PRN (20:32)
[2021-06-12] MEDS ORDERED: NICOTINE POLACRILEX 2 MG GUM BUC PRN (20:32)
[2021-06-12] MEDS ORDERED: BENZOCAINE/MENTHOL (CHLORASEPTIC ) LOZENGE MM PRN (20:32)
[2021-06-12] MEDS ORDERED: BISMUTH SUBSALICYLATE 524 MG/30 ML PO PRN (20:32)
[2021-06-12] MEDS ORDERED: METHOCARBAMOL 500 MG TABLET PO PRN (20:32)
[2021-06-12] MEDS ORDERED: LOPERAMIDE HCL 2 MG CAPSULE PO PRN (20:32)
[2021-06-12] MEDS ORDERED: ACETAMINOPHEN 325 MG TABLET (FP) PO PRN (20:32)
[2021-06-12] MEDS ORDERED: MAGNESIUM HYDROX 2400MG/30ML ORAL SUSPENSION 30 ML CUP PO PRN (20:32)
[2021-06-12] MEDS ORDERED: guaiFENesin 200 MG/10 ML 10 ML UNIT-DOSE CUPS PO PRN (20:32)
[2021-06-12] MEDS ORDERED: MAGNESIUM CITRATE 300 ML BOTTLE PO PRN (20:32)
[2021-06-12] MEDS ORDERED: MAG HYDROX/AL HYDROX/SIMETH 30 ML UNIT-DOSE CUP PO PRN (20:32)
[2021-06-12] MEDS ORDERED: DICYCLOMINE HCL 10 MG CAPSULE PO PRN (20:32)
[2021-06-12] MEDS ORDERED: P-EPHED 60MG/TRIPROLIDI 2.5MG TABLET PO PRN (20:32)
[2021-06-12 21:15] VITALS: BMI 31.3
[2021-06-12] MEDS: chlordiazePOXIDE HCL 25 MG CAPSULE PO SCH (23:22)
[2021-06-12] MEDS: MELATONIN 5 MG TABLETS PO SCH (23:23)
[2021-06-12] MEDS: THIAMINE HCL 100 MG TABLET (FP) PO SCH (23:23)
[2021-06-13] MEDS: chlordiazePOXIDE HCL 25 MG CAPSULE PO SCH ×4 (05:12→22:24)
[2021-06-13] MEDS ORDERED: INSULIN (NOVOLOG) ASPART 100 UNITS/ML 10ML VIAL SQ SCH (07:00)
[2021-06-13] MEDS ORDERED: INSULIN SLIDING SCALE (NOVOLOG) 1 VIAL SQ ONE ×3 (07:21→17:15)
[2021-06-13] MEDS: INSULIN (NOVOLOG) ASPART 100 UNITS/ML 10ML VIAL SQ SCH ×4 (08:36→22:24)
[2021-06-13] MEDS: glyBURIDE 5 MG TABLET PO SCH (10:10)
[2021-06-13] MEDS: BACITRACIN 0.9 GM PACKET TP SCH (10:11)
[2021-06-13] MEDS: NICOTINE 14 MG/24 HOURS TOPICAL PATCH TD SCH (10:11)
[2021-06-13] MEDS: PRENATAL VITAMINS W/ FOLIC ACID TABLET (FP) PO SCH (10:12)
[2021-06-13 12:40] LABS: HEMATOCRIT 36.3 % (35.4-49); HEMOGLOBIN 12.3 GM/dL (11.7-16.9); MCH 29.9 pg (25.7-33.7); MCHC 33.9 g/dl (32.0-35.9); MEAN CELL VOLUME 88.1 fl (80-96); MEAN PLT VOLUME 9.3 fl (7.5-11.1); PLATELET COUNT 151 10^3/uL (134-434); RBC 4.12 M/mm3 (4.00-5.60); RDW 13.3 % (11.9-15.9); WHITE BLOOD COUNT 3.9 K/mm3 (4.0-10.0)
[2021-06-13 12:54] LABS: ALBUMIN 3.2 g/dl (3.4-5.0); BLOOD UREA NITROGEN 9.3 mg/dL (7-18)
[2021-06-13 12:56] LABS: BILIRUBIN,TOTAL 0.2 mg/dL (0.2-1); CALCIUM 8.7 mg/dL (8.5-10.1); TOT PROT 6.3 g/dl (6.4-8.2)
[2021-06-13 12:57] LABS: CREATININE 0.6 mg/dL (0.55-1.3)
[2021-06-13] MEDS: ACETAMINOPHEN 325 MG TABLET (FP) PO PRN (18:33)
[2021-06-13] MEDS: MELATONIN 5 MG TABLETS PO SCH (22:24)
[2021-06-13] MEDS: THIAMINE HCL 100 MG TABLET (FP) PO SCH (22:24)
[2021-06-14] MEDS: chlordiazePOXIDE HCL 25 MG CAPSULE PO SCH ×4 (05:19→22:05)
[2021-06-14] MEDS: INSULIN (NOVOLOG) ASPART 100 UNITS/ML 10ML VIAL SQ SCH ×4 (06:32→21:37)
[2021-06-14] MEDS: glyBURIDE 5 MG TABLET PO SCH (07:27)
[2021-06-14 08:09] LABS: SARS-CoV-2 NAA Not Detected (Not Detected)
[2021-06-14] MEDS: PRENATAL VITAMINS W/ FOLIC ACID TABLET (FP) PO SCH (10:20)
[2021-06-14] MEDS: BACITRACIN 0.9 GM PACKET TP SCH (10:20)
[2021-06-14] MEDS: NICOTINE 14 MG/24 HOURS TOPICAL PATCH TD SCH (10:22)
[2021-06-14] MEDS ORDERED: INSULIN SLIDING SCALE (NOVOLOG) 1 VIAL SQ ONE ×2 (17:22→23:31)
[2021-06-14] MEDS: THIAMINE HCL 100 MG TABLET (FP) PO SCH (21:33)
[2021-06-14] MEDS: MELATONIN 5 MG TABLETS PO SCH (21:33)
[2021-06-14] MEDS: IBUPROFEN 400 MG TABLET (FP) PO PRN (21:34)
[2021-06-15] MEDS ORDERED: chlordiazePOXIDE HCL 10 MG CAPSULE PO PRN
[2021-06-15] MEDS: chlordiazePOXIDE HCL 10 MG CAPSULE PO SCH ×4 (05:25→22:21)
[2021-06-15] MEDS: glyBURIDE 5 MG TABLET PO SCH (07:14)
[2021-06-15] MEDS: INSULIN (NOVOLOG) ASPART 100 UNITS/ML 10ML VIAL SQ SCH ×4 (07:15→22:21)
[2021-06-15] MEDS ORDERED: INSULIN SLIDING SCALE (NOVOLOG) 1 VIAL SQ ONE ×2 (07:25→12:26)
[2021-06-15] MEDS: BACITRACIN 0.9 GM PACKET TP SCH (10:21)
[2021-06-15] MEDS: NICOTINE 14 MG/24 HOURS TOPICAL PATCH TD SCH (10:21)
[2021-06-15] MEDS: PRENATAL VITAMINS W/ FOLIC ACID TABLET (FP) PO SCH (10:21)
[2021-06-15] MEDS: THIAMINE HCL 100 MG TABLET (FP) PO SCH (22:19)
[2021-06-15] MEDS: MELATONIN 5 MG TABLETS PO SCH (22:19)
[2021-06-15] MEDS: IBUPROFEN 400 MG TABLET (FP) PO PRN (22:33)
[2021-06-16] MEDS: chlordiazePOXIDE HCL 10 MG CAPSULE PO SCH ×2 (05:12→16:31)
[2021-06-16] MEDS ORDERED: INSULIN SLIDING SCALE (NOVOLOG) 1 VIAL SQ ONE ×4 (06:28→16:29)
[2021-06-16] MEDS: glyBURIDE 5 MG TABLET PO SCH (06:39)
[2021-06-16] MEDS: INSULIN (NOVOLOG) ASPART 100 UNITS/ML 10ML VIAL SQ SCH ×4 (06:40→22:06)
[2021-06-16] MEDS: BACITRACIN 0.9 GM PACKET TP SCH (10:17)
[2021-06-16] MEDS: NICOTINE 14 MG/24 HOURS TOPICAL PATCH TD SCH (10:17)
[2021-06-16] MEDS: PRENATAL VITAMINS W/ FOLIC ACID TABLET (FP) PO SCH (10:17)
[2021-06-16] MEDS: IBUPROFEN 400 MG TABLET (FP) PO PRN (13:52)
[2021-06-16] MEDS: ACETAMINOPHEN 325 MG TABLET (FP) PO PRN (17:44)
[2021-06-16] MEDS: THIAMINE HCL 100 MG TABLET (FP) PO SCH (22:05)
[2021-06-16] MEDS: MELATONIN 5 MG TABLETS PO SCH (22:05)
[2021-06-17] MEDS ORDERED: chlordiazePOXIDE HCL 10 MG CAPSULE PO ONE (05:00)
[2021-06-17] MEDS: glyBURIDE 5 MG TABLET PO SCH (06:18)
[2021-06-17] MEDS: INSULIN (NOVOLOG) ASPART 100 UNITS/ML 10ML VIAL SQ SCH (07:15)
[2021-06-17] MEDS ORDERED: INSULIN SLIDING SCALE (NOVOLOG) 1 VIAL SQ ONE (07:20)
[2021-06-17 09:44] VITALS: BP 123/76; PULSE 87; TEMP 96.8
== END 2021-06-17 09:50 | disposition home or self-care (01) | DRG 774 ==
LOC: YASAS 19:52 → Y3N 22:36
PROVIDERS: ADMIT Allergy & Immunology; ATTEND Allergy & Immunology
PROC: HZ2ZZZZ Detoxification Services for Substance Abuse Treatment (ICD-10-PCS; principal; 2021-06-12)
DX: F10.230 Alcohol dependence with withdrawal, uncomplicated (principal); F14.20 Cocaine dependence, uncomplicated; F12.20 Cannabis dependence, uncomplicated; F17.210 Nicotine dependence, cigarettes, uncomplicated; F19.24 Other psychoactive substance dependence with psychoactive substance-induced mood disorder; I10 Essential (primary) hypertension; E11.65 Type 2 diabetes mellitus with hyperglycemia; E11.42 Type 2 diabetes mellitus with diabetic polyneuropathy; E11.621 Type 2 diabetes mellitus with foot ulcer; L97.521 Non-pressure chronic ulcer of other part of left foot limited to breakdown of skin; Z79.84 Long term (current) use of oral hypoglycemic drugs; Z89.412 Acquired absence of left great toe; Z89.422 Acquired absence of other left toe(s); Z56.0 Unemployment, unspecified; Z59.00 Homelessness unspecified
CPT/HCPCS: 36415; 80053; 82962; 85027; 86780; 87811; C9803-CS; U0003; U0005

== ENCOUNTER 2021-07-16 02:47 | Inpatient (IN) | payer OTHER ==
[2021-07-16] MEDS ORDERED: VANCOMYCIN 1 GM in D5W (PRE-DOCKED) 1,000 MG/250 ML IVPB ONE (03:49)
[2021-07-16] MEDS ORDERED: ACETAMINOPHEN 500 MG TABLET (FP) PO ONE (03:49)
[2021-07-16] MEDS ORDERED: PIPERACILLIN/TAZOB 4.5 GM 4.5 GM in DEXTROSE 5%-WATER 100 ML IVPB ONE (03:49)
[2021-07-16] MEDS ORDERED: SODIUM CHLORIDE 0.9% 500 ML INFUS.BAG IV ONE (03:49)
[2021-07-16] MEDS ORDERED: PIPERACILLIN/TAZOB 4.5 GM 4.5 GM/100 ML BAG IVPB ONE (04:04)
[2021-07-16] MEDS ORDERED: ACETAMINOPHEN 325 MG TABLET (FP) ONE (04:04)
[2021-07-16] MEDS ORDERED: VANCOMYCIN 1 GRAM (PRE-DOCKED) 1,000 MG/250 ML BAG IVPB ONE (04:45)
[2021-07-16 05:04] LABS: BASO % 0.2 % (0-2.0); EOS % 0.1 % (0-4.5); HEMATOCRIT 33.4 % (35.4-49); HEMOGLOBIN 11.4 GM/dL (11.7-16.9); LYMPH % 6.6 % (8-40); MCH 30.5 pg (25.7-33.7); MCHC 34.2 g/dl (32.0-35.9); MEAN CELL VOLUME 89.3 fl (80-96); MEAN PLT VOLUME 9.8 fl (7.5-11.1); MONO % 8.4 % (3.8-10.2); NEUT % 84.7 % (42.8-82.8); PLATELET COUNT 139 10^3/uL (134-434); RBC 3.75 M/mm3 (4.00-5.60); RDW 13.5 % (11.9-15.9); WHITE BLOOD COUNT 13.2 K/mm3 (4.0-10.0)
[2021-07-16 05:19] LABS: ALBUMIN 3.5 g/dl (3.4-5.0); CALCIUM 8.4 mg/dL (8.5-10.1)
[2021-07-16 05:20] LABS: BLOOD UREA NITROGEN 6.5 mg/dL (7-18)
[2021-07-16 05:23] LABS: CREATININE 0.7 mg/dL (0.55-1.3)
[2021-07-16 05:24] LABS: BILIRUBIN,TOTAL 0.6 mg/dL (0.2-1); TOT PROT 7.2 g/dl (6.4-8.2)
[2021-07-16] MEDS ORDERED: ACETAMINOPHEN 325 MG TABLET (FP) PO PRN (06:08)
[2021-07-16 07:10] LABS: ERYTHROCYTE SEDIMENTATION RATE 104 mm/hr (0-10)
[2021-07-16] MEDS: INSULIN SLIDING SCALE (NOVOLOG) 1 VIAL SQ SCH ×4 (07:21→21:18)
[2021-07-16] MEDS: INSULIN (LEVEMIR) 100 UNITS/ML UNITS SQ SCH ×2 (07:21→21:18)
[2021-07-16 08:10] LABS: MAGNESIUM 2.3 mg/dL (1.8-2.4)
[2021-07-16] MEDS ORDERED: ENOXAPARIN NA (PORCINE) 40 MG/0.4 ML DISP.SYRIN SQ ONE (12:32)
[2021-07-16] MEDS: ENOXAPARIN NA (PORCINE) 40 MG/0.4 ML DISP.SYRIN SQ SCH (12:39)
[2021-07-16 14:30] VITALS: BMI 30.9
[2021-07-16] MEDS ORDERED: PIPERACILLIN/TAZOBACTAM 3.375 GM VIAL IVPB ONE ×2 (15:23→20:38)
[2021-07-16] MEDS ORDERED: DEXTROSE 5%-WATER - 50 ML IVPB ONE ×2 (15:23→20:39)
[2021-07-16] MEDS: PIPERACILLIN/TAZOB 3.375 GM 3.375 GM in DEXTROSE 5%-WATER - 50 ML IVPB SCH ×2 (15:30→21:18)
[2021-07-16] MEDS: VANCOMYCIN 1 GM/200 ML PREMIX BAG IVPB SCH (16:38)
[2021-07-16] MEDS: ACETAMINOPHEN 500 MG TABLET (FP) PO PRN (20:50)
[2021-07-16] MEDS: LISINOPRIL 20 MG TABLET PO SCH (21:17)
[2021-07-17] MEDS ORDERED: PIPERACILLIN/TAZOBACTAM 3.375 GM VIAL IVPB ONE ×2 (02:35→08:08)
[2021-07-17] MEDS: PIPERACILLIN/TAZOB 3.375 GM 3.375 GM in DEXTROSE 5%-WATER - 50 ML IVPB SCH ×2 (02:44→08:17)
[2021-07-17] MEDS: VANCOMYCIN 1 GM/200 ML PREMIX BAG IVPB SCH (03:35)
[2021-07-17] MEDS: INSULIN SLIDING SCALE (NOVOLOG) 1 VIAL SQ SCH ×4 (06:11→22:13)
[2021-07-17] MEDS: INSULIN (LEVEMIR) 100 UNITS/ML UNITS SQ SCH ×2 (06:11→22:09)
[2021-07-17] MEDS: glyBURIDE 5 MG TABLET PO SCH (06:12)
[2021-07-17] MEDS ORDERED: DEXTROSE 5%-WATER - 50 ML IVPB ONE ×2 (08:08→11:19)
[2021-07-17 08:44] LABS: URINE APPEARANCE CLEAR; URINE BILIRUBIN NEGATIVE (NEGATIVE); URINE COLOR YELLOW; URINE GLUCOSE (UA) NEGATIVE (NEGATIVE); URINE KETONE NEGATIVE (NEGATIVE); URINE LEUK ESTERASE NEGATIVE (NEGATIVE); URINE NITRITE NEGATIVE (NEGATIVE); URINE PROTEIN NEGATIVE (NEGATIVE); URINE UROBILINOGEN 0.2 mg/dL (0.2-1.0)
[2021-07-17 09:12] LABS: BASO % 0.3 % (0-2.0); EOS % 1.6 % (0-4.5); HEMATOCRIT 34.2 % (35.4-49); HEMOGLOBIN 11.7 GM/dL (11.7-16.9); LYMPH % 9.5 % (8-40); MCH 30.3 pg (25.7-33.7); MCHC 34.2 g/dl (32.0-35.9); MEAN CELL VOLUME 88.7 fl (80-96); MEAN PLT VOLUME 9.7 fl (7.5-11.1); MONO % 9.9 % (3.8-10.2); NEUT % 78.7 % (42.8-82.8); PLATELET COUNT 145 10^3/uL (134-434); RBC 3.86 M/mm3 (4.00-5.60); RDW 13.5 % (11.9-15.9); WHITE BLOOD COUNT 9.1 K/mm3 (4.0-10.0)
[2021-07-17 09:27] LABS: CALCIUM 8.1 mg/dL (8.5-10.1)
[2021-07-17 09:28] LABS: ALBUMIN 2.9 g/dl (3.4-5.0); BLOOD UREA NITROGEN 5.2 mg/dL (7-18); MAGNESIUM 2.3 mg/dL (1.8-2.4)
[2021-07-17 09:31] LABS: CREATININE 0.6 mg/dL (0.55-1.3); PHOSPHOROUS 2.4 mg/dL (2.5-4.9)
[2021-07-17 09:33] LABS: BILIRUBIN,TOTAL 0.4 mg/dL (0.2-1); TOT PROT 6.5 g/dl (6.4-8.2)
[2021-07-17] MEDS: ENOXAPARIN NA (PORCINE) 40 MG/0.4 ML DISP.SYRIN SQ SCH (11:10)
[2021-07-17] MEDS ORDERED: cefTRIAXone SODIUM 1 GM VIAL ONE (11:19)
[2021-07-17] MEDS: CEFTRIAXONE 1 GM in DEXTROSE 5%-WATER - 50 ML IVPB SCH (11:22)
[2021-07-17] MEDS ORDERED: INSULIN (NOVOLOG) ASPART 100 UNITS/ML 10ML VIAL ONE (11:23)
[2021-07-17] MEDS ORDERED: NAPH,MB-DB/K PH,MBDB POWDER PACKET PO ONE (11:30)
[2021-07-17] MEDS ORDERED: LACTOBACILLUS ACIDOPHILUS 1 TABLET PO ONE (14:49)
[2021-07-17] MEDS ORDERED: PIPERACILLIN/TAZOB 3.375 GM 3.375 GM in DEXTROSE 5%-WATER - 50 ML IVPB SCH (15:00)
[2021-07-17] MEDS ORDERED: VANCOMYCIN 1 GM in D5W (PRE-DOCKED) 1,000 MG/250 ML IVPB SCH (16:00)
[2021-07-17] MEDS: LISINOPRIL 20 MG TABLET PO SCH (22:10)
[2021-07-18] MEDS: ACETAMINOPHEN 500 MG TABLET (FP) PO PRN ×3 (01:30→20:10)
[2021-07-18] MEDS: INSULIN (LEVEMIR) 100 UNITS/ML UNITS SQ SCH ×2 (06:07→21:53)
[2021-07-18] MEDS: glyBURIDE 5 MG TABLET PO SCH (06:07)
[2021-07-18] MEDS: INSULIN SLIDING SCALE (NOVOLOG) 1 VIAL SQ SCH ×4 (06:11→21:49)
[2021-07-18] MEDS ORDERED: INSULIN (NOVOLOG) ASPART 100 UNITS/ML 10ML VIAL ONE ×2 (06:53→10:53)
[2021-07-18] MEDS ORDERED: cefTRIAXone SODIUM 1 GM VIAL ONE (09:04)
[2021-07-18] MEDS ORDERED: DEXTROSE 5%-WATER - 50 ML IVPB ONE (09:04)
[2021-07-18] MEDS: CEFTRIAXONE 1 GM in DEXTROSE 5%-WATER - 50 ML IVPB SCH (09:12)
[2021-07-18 10:01] LABS: BASO % 0.3 % (0-2.0); EOS % 3.6 % (0-4.5); HEMATOCRIT 32.9 % (35.4-49); HEMOGLOBIN 11.6 GM/dL (11.7-16.9); MCH 31.1 pg (25.7-33.7); MCHC 35.2 g/dl (32.0-35.9); MEAN CELL VOLUME 88.5 fl (80-96); MEAN PLT VOLUME 8.5 fl (7.5-11.1); MONO % 16.6 % (3.8-10.2); NEUT % 57.5 % (42.8-82.8); PLATELET COUNT 149 10^3/uL (134-434); RBC 3.72 M/mm3 (4.00-5.60); RDW 13.7 % (11.9-15.9)
[2021-07-18 10:21] LABS: CALCIUM 8.4 mg/dL (8.5-10.1)
[2021-07-18 10:22] LABS: ALBUMIN 2.8 g/dl (3.4-5.0); BLOOD UREA NITROGEN 6.6 mg/dL (7-18); MAGNESIUM 2.1 mg/dL (1.8-2.4)
[2021-07-18 10:25] LABS: CREATININE 0.5 mg/dL (0.55-1.3); PHOSPHOROUS 3.8 mg/dL (2.5-4.9)
[2021-07-18 10:26] LABS: BILIRUBIN,TOTAL 0.3 mg/dL (0.2-1)
[2021-07-18 10:30] LABS: TOT PROT 6.8 g/dl (6.4-8.2)
[2021-07-18] MEDS: LACTOBACILLUS ACIDOPHILUS 1 TABLET PO SCH (10:58)
[2021-07-18] MEDS: ENOXAPARIN NA (PORCINE) 40 MG/0.4 ML DISP.SYRIN SQ SCH (10:58)
[2021-07-18] MEDS ORDERED: REMDESIVIR 200 MG in SODIUM CHLORIDE 250 ML IVPB ONE (12:00)
[2021-07-18] MEDS: LISINOPRIL 20 MG TABLET PO SCH (21:49)
[2021-07-19] MEDS: ACETAMINOPHEN 500 MG TABLET (FP) PO PRN (05:23)
[2021-07-19] MEDS: INSULIN (LEVEMIR) 100 UNITS/ML UNITS SQ SCH ×2 (06:41→21:56)
[2021-07-19] MEDS: INSULIN SLIDING SCALE (NOVOLOG) 1 VIAL SQ SCH ×4 (06:41→21:56)
[2021-07-19 09:06] LABS: BASO % 0.6 % (0-2.0); EOS % 3.8 % (0-4.5); HEMATOCRIT 36.8 % (35.4-49); HEMOGLOBIN 12.4 GM/dL (11.7-16.9); LYMPH % 25.6 % (8-40); MCHC 33.7 g/dl (32.0-35.9); MEAN CELL VOLUME 89.1 fl (80-96); PLATELET COUNT 171 10^3/uL (134-434); RBC 4.13 M/mm3 (4.00-5.60); RDW 13.5 % (11.9-15.9); WHITE BLOOD COUNT 5.2 K/mm3 (4.0-10.0)
[2021-07-19] MEDS: LACTOBACILLUS ACIDOPHILUS 1 TABLET PO SCH (09:43)
[2021-07-19] MEDS: guaiFENesin/D-M SUGAR-FREE/ACLHOL-FREE 5 ML UNIT DOSE PO PRN ×2 (09:44→16:28)
[2021-07-19 10:03] LABS: ALBUMIN 3.2 g/dl (3.4-5.0); BLOOD UREA NITROGEN 7.8 mg/dL (7-18); CALCIUM 8.8 mg/dL (8.5-10.1)
[2021-07-19 10:05] LABS: CREATININE 0.6 mg/dL (0.55-1.3)
[2021-07-19 10:06] LABS: PHOSPHOROUS 4.6 mg/dL (2.5-4.9)
[2021-07-19 10:07] LABS: BILIRUBIN,TOTAL 0.8 mg/dL (0.2-1); TOT PROT 7.2 g/dl (6.4-8.2)
[2021-07-19] MEDS: REMDESIVIR 100 MG in SODIUM CHLORIDE 250 ML IVPB SCH (11:00)
[2021-07-19] MEDS ORDERED: ENOXAPARIN NA (PORCINE) 40 MG/0.4 ML DISP.SYRIN SQ ONE (14:35)
[2021-07-19] MEDS: LISINOPRIL 20 MG TABLET PO SCH (21:55)
[2021-07-20] MEDS: guaiFENesin/D-M SUGAR-FREE/ACLHOL-FREE 5 ML UNIT DOSE PO PRN ×3 (01:05→21:32)
[2021-07-20] MEDS: INSULIN SLIDING SCALE (NOVOLOG) 1 VIAL SQ SCH ×4 (06:37→21:30)
[2021-07-20] MEDS: INSULIN (LEVEMIR) 100 UNITS/ML UNITS SQ SCH ×2 (06:37→21:29)
[2021-07-20] MEDS: LACTOBACILLUS ACIDOPHILUS 1 TABLET PO SCH (09:29)
[2021-07-20] MEDS ORDERED: LIDOCAINE HCL 1%, 10 MG/ML (20ML VIAL) NR ONE ×2 (10:38→11:53)
[2021-07-20] MEDS ORDERED: BUPIVACAINE HCL/PF 0.5% (5MG/ML) 10 ML VIAL IJ ONE (10:40)
[2021-07-20 11:02] LABS: BASO % 0.8 % (0-2.0); EOS % 3.6 % (0-4.5); HEMOGLOBIN 13.1 GM/dL (11.7-16.9); LYMPH % 33.4 % (8-40); MCH 30.4 pg (25.7-33.7); MCHC 34.5 g/dl (32.0-35.9); MEAN CELL VOLUME 88.2 fl (80-96); MEAN PLT VOLUME 8.5 fl (7.5-11.1); MONO % 12.1 % (3.8-10.2); NEUT % 50.1 % (42.8-82.8); PLATELET COUNT 176 10^3/uL (134-434); RBC 4.31 M/mm3 (4.00-5.60); RDW 13.5 % (11.9-15.9); WHITE BLOOD COUNT 4.6 K/mm3 (4.0-10.0)
[2021-07-20 11:04] LABS: INR 1.22 (0.83-1.09); PROTHROMBIN TIME (PATIENT) 14.1 SEC (9.7-13.0)
[2021-07-20 11:05] LABS: ACTIVATED PTT 40.4 SECONDS (25.2-36.5)
[2021-07-20 11:29] LABS: ALBUMIN 3.5 g/dl (3.4-5.0); BLOOD UREA NITROGEN 10.7 mg/dL (7-18); CALCIUM 9.4 mg/dL (8.5-10.1)
[2021-07-20 11:30] LABS: MAGNESIUM 2.1 mg/dL (1.8-2.4)
[2021-07-20 11:31] LABS: PHOSPHOROUS 4.3 mg/dL (2.5-4.9)
[2021-07-20] MEDS ORDERED: MIDAZOLAM HCL 2 MG/2 ML SINGLE DOSE VIAL ONE ×2 (11:32)
[2021-07-20] MEDS ORDERED: PROPOFOL 20 ML ONE (11:32)
[2021-07-20] MEDS ORDERED: FENTANYL CITRATE/PF 50 MCG/ML VIAL ONE ×2 (11:32)
[2021-07-20 11:33] LABS: CREATININE 0.6 mg/dL (0.55-1.3)
[2021-07-20 11:34] LABS: BILIRUBIN,TOTAL 0.5 mg/dL (0.2-1); TOT PROT 8.2 g/dl (6.4-8.2)
[2021-07-20] MEDS ORDERED: DEXAMETHASONE SOD PHOSPHATE 4 MG/1 ML VIAL ONE (11:56)
[2021-07-20] MEDS: REMDESIVIR 100 MG in SODIUM CHLORIDE 250 ML IVPB SCH (13:05)
[2021-07-20] MEDS ORDERED: DEXTROSE 5%-WATER - 50 ML IVPB ONE (13:58)
[2021-07-20] MEDS ORDERED: cefTRIAXone SODIUM 1 GM VIAL ONE (13:58)
[2021-07-20] MEDS ORDERED: CEFTRIAXONE 1 GM in DEXTROSE 5%-WATER - 50 ML IVPB SCH (14:00)
[2021-07-20] MEDS: CEFTRIAXONE 1 GM in DEXTROSE 5%-WATER - 50 ML IVPB SCH (14:32)
[2021-07-20] MEDS: oxyCODONE HCL 5 MG TABLET PO PRN ×2 (17:13→23:12)
[2021-07-20] MEDS: LISINOPRIL 20 MG TABLET PO SCH (21:29)
[2021-07-20] MEDS: ACETAMINOPHEN 500 MG TABLET (FP) PO PRN ×2 (21:31→21:37)
[2021-07-21] MEDS: INSULIN (LEVEMIR) 100 UNITS/ML UNITS SQ SCH ×2 (06:18→22:57)
[2021-07-21] MEDS: INSULIN SLIDING SCALE (NOVOLOG) 1 VIAL SQ SCH ×4 (06:19→22:58)
[2021-07-21] MEDS ORDERED: DEXTROSE 5%-WATER - 50 ML IVPB ONE (09:04)
[2021-07-21] MEDS ORDERED: cefTRIAXone SODIUM 1 GM VIAL ONE (09:04)
[2021-07-21] MEDS: ACETAMINOPHEN 500 MG TABLET (FP) PO PRN (09:07)
[2021-07-21] MEDS: LACTOBACILLUS ACIDOPHILUS 1 TABLET PO SCH (09:07)
[2021-07-21] MEDS: ENOXAPARIN NA (PORCINE) 40 MG/0.4 ML DISP.SYRIN SQ SCH (09:08)
[2021-07-21] MEDS: CEFTRIAXONE 1 GM in DEXTROSE 5%-WATER - 50 ML IVPB SCH (09:08)
[2021-07-21] MEDS ORDERED: ENOXAPARIN NA (PORCINE) 40 MG/0.4 ML DISP.SYRIN SQ SCH (10:00)
[2021-07-21 10:49] LABS: WHITE BLOOD COUNT 7.8 K/mm3 (4.0-10.0)
[2021-07-21 10:50] LABS: BASO % 0.3 % (0-2.0); EOS % 0.5 % (0-4.5); HEMATOCRIT 35.3 % (35.4-49); HEMOGLOBIN 12.3 GM/dL (11.7-16.9); LYMPH % 21.8 % (8-40); MCH 30.9 pg (25.7-33.7); MEAN CELL VOLUME 88.3 fl (80-96); MEAN PLT VOLUME 9.1 fl (7.5-11.1); MONO % 10.2 % (3.8-10.2); NEUT % 67.2 % (42.8-82.8); PLATELET COUNT 179 10^3/uL (134-434); RDW 13.4 % (11.9-15.9)
[2021-07-21 11:42] LABS: ALBUMIN 3.5 g/dl (3.4-5.0); BLOOD UREA NITROGEN 11.3 mg/dL (7-18); CALCIUM 9.4 mg/dL (8.5-10.1)
[2021-07-21 11:46] LABS: CREATININE 0.5 mg/dL (0.55-1.3); MAGNESIUM 2.3 mg/dL (1.8-2.4); PHOSPHOROUS 3.3 mg/dL (2.5-4.9)
[2021-07-21 11:48] LABS: BILIRUBIN,TOTAL 0.6 mg/dL (0.2-1); TOT PROT 7.9 g/dl (6.4-8.2)
[2021-07-21] MEDS: guaiFENesin/D-M SUGAR-FREE/ACLHOL-FREE 5 ML UNIT DOSE PO PRN (12:01)
[2021-07-21] MEDS: oxyCODONE HCL 5 MG TABLET PO PRN (17:07)
[2021-07-21] MEDS: PIPERACILLIN/TAZOB 3.375 GM 3.375 GM in DEXTROSE 5%-WATER - 50 ML IVPB SCH (17:26)
[2021-07-21] MEDS: LISINOPRIL 20 MG TABLET PO SCH (22:57)
[2021-07-22] MEDS: PIPERACILLIN/TAZOB 3.375 GM 3.375 GM in DEXTROSE 5%-WATER - 50 ML IVPB SCH ×3 (03:42→17:36)
[2021-07-22] MEDS: ACETAMINOPHEN 500 MG TABLET (FP) PO PRN (07:06)
[2021-07-22] MEDS: INSULIN (LEVEMIR) 100 UNITS/ML UNITS SQ SCH ×2 (07:07→23:40)
[2021-07-22] MEDS: INSULIN SLIDING SCALE (NOVOLOG) 1 VIAL SQ SCH ×4 (07:08→23:41)
[2021-07-22] MEDS: guaiFENesin/D-M SUGAR-FREE/ACLHOL-FREE 5 ML UNIT DOSE PO PRN ×2 (07:13→23:47)
[2021-07-22] MEDS: LACTOBACILLUS ACIDOPHILUS 1 TABLET PO SCH (09:25)
[2021-07-22] MEDS: ENOXAPARIN NA (PORCINE) 40 MG/0.4 ML DISP.SYRIN SQ SCH (09:25)
[2021-07-22 09:27] LABS: BASO % 0.5 % (0-2.0); EOS % 2.4 % (0-4.5); HEMATOCRIT 38.7 % (35.4-49); HEMOGLOBIN 13.1 GM/dL (11.7-16.9); LYMPH % 30.3 % (8-40); MCH 30.2 pg (25.7-33.7); MEAN CELL VOLUME 88.8 fl (80-96); MEAN PLT VOLUME 9.3 fl (7.5-11.1); MONO % 9.4 % (3.8-10.2); NEUT % 57.4 % (42.8-82.8); PLATELET COUNT 198 10^3/uL (134-434); RBC 4.36 M/mm3 (4.00-5.60); RDW 13.5 % (11.9-15.9); WHITE BLOOD COUNT 5.5 K/mm3 (4.0-10.0)
[2021-07-22 09:53] LABS: CALCIUM 9.3 mg/dL (8.5-10.1)
[2021-07-22 09:54] LABS: ALBUMIN 3.9 g/dl (3.4-5.0); BLOOD UREA NITROGEN 11.3 mg/dL (7-18)
[2021-07-22 09:56] LABS: CREATININE 0.7 mg/dL (0.55-1.3)
[2021-07-22 09:58] LABS: BILIRUBIN,TOTAL 0.3 mg/dL (0.2-1); TOT PROT 8.5 g/dl (6.4-8.2)
[2021-07-22] MEDS ORDERED: DEXTROSE 5%-WATER - 50 ML IVPB ONE ×2 (13:10→17:10)
[2021-07-22] MEDS ORDERED: PIPERACILLIN/TAZOBACTAM 3.375 GM VIAL IVPB ONE ×2 (13:10→17:10)
[2021-07-22] MEDS ORDERED: IBUPROFEN 800 MG/8 ML IJ IVPB PRN (17:01)
[2021-07-22] MEDS: LISINOPRIL 20 MG TABLET PO SCH (23:40)
[2021-07-22] MEDS: MELATONIN 5 MG TABLETS PO PRN (23:47)
[2021-07-23] MEDS ORDERED: DEXTROSE 5%-WATER - 50 ML IVPB ONE ×2 (02:17→10:55)
[2021-07-23] MEDS: PIPERACILLIN/TAZOB 3.375 GM 3.375 GM in DEXTROSE 5%-WATER - 50 ML IVPB SCH ×2 (02:17→11:01)
[2021-07-23] MEDS ORDERED: PIPERACILLIN/TAZOBACTAM 3.375 GM VIAL IVPB ONE ×2 (02:17→10:55)
[2021-07-23] MEDS: ACETAMINOPHEN 500 MG TABLET (FP) PO PRN ×2 (03:33→16:29)
[2021-07-23] MEDS: INSULIN (LEVEMIR) 100 UNITS/ML UNITS SQ SCH ×2 (06:17→21:04)
[2021-07-23] MEDS: INSULIN SLIDING SCALE (NOVOLOG) 1 VIAL SQ SCH ×4 (06:22→21:04)
[2021-07-23] MEDS: LACTOBACILLUS ACIDOPHILUS 1 TABLET PO SCH (11:01)
[2021-07-23] MEDS: ENOXAPARIN NA (PORCINE) 40 MG/0.4 ML DISP.SYRIN SQ SCH (11:03)
[2021-07-23] MEDS ORDERED: SODIUM CHLORIDE 100 ML IVPB ONE (17:14)
[2021-07-23] MEDS ORDERED: AMPICILLIN NA/SULBACTAM NA 3 GM VIAL ONE (17:14)
[2021-07-23] MEDS: AMPICILLIN NA/SULBACTAM NA 3 GM in SODIUM CHLORIDE 100 ML IVPB SCH (17:35)
[2021-07-23] MEDS ORDERED: INSULIN (NOVOLOG) ASPART 100 UNITS/ML 10ML VIAL ONE (20:27)
[2021-07-23] MEDS: LISINOPRIL 20 MG TABLET PO SCH (21:05)
[2021-07-24] MEDS ORDERED: AMPICILLIN NA/SULBACTAM NA 3 GM VIAL ONE ×3 (01:17→17:19)
[2021-07-24] MEDS ORDERED: SODIUM CHLORIDE 100 ML IVPB ONE ×3 (01:18→17:19)
[2021-07-24] MEDS: AMPICILLIN NA/SULBACTAM NA 3 GM in SODIUM CHLORIDE 100 ML IVPB SCH ×3 (01:23→17:26)
[2021-07-24] MEDS: ACETAMINOPHEN 500 MG TABLET (FP) PO PRN ×2 (01:40→12:57)
[2021-07-24] MEDS: guaiFENesin/D-M SUGAR-FREE/ACLHOL-FREE 5 ML UNIT DOSE PO PRN ×2 (01:43→22:13)
[2021-07-24] MEDS ORDERED: oxyCODONE HCL 5 MG TABLET PO ONE (02:02)
[2021-07-24] MEDS: INSULIN (LEVEMIR) 100 UNITS/ML UNITS SQ SCH ×2 (06:26→21:23)
[2021-07-24] MEDS: INSULIN SLIDING SCALE (NOVOLOG) 1 VIAL SQ SCH ×4 (06:26→21:23)
[2021-07-24 08:49] LABS: BASO % 0.6 % (0-2.0); EOS % 3.1 % (0-4.5); HEMATOCRIT 36.7 % (35.4-49); HEMOGLOBIN 12.6 GM/dL (11.7-16.9); LYMPH % 38.9 % (8-40); MCH 30.2 pg (25.7-33.7); MCHC 34.3 g/dl (32.0-35.9); MONO % 11.6 % (3.8-10.2); NEUT % 45.8 % (42.8-82.8); PLATELET COUNT 207 10^3/uL (134-434); RBC 4.18 M/mm3 (4.00-5.60); RDW 13.6 % (11.9-15.9); WHITE BLOOD COUNT 4.3 K/mm3 (4.0-10.0)
[2021-07-24 09:44] LABS: CALCIUM 9.2 mg/dL (8.5-10.1)
[2021-07-24 09:45] LABS: ALBUMIN 3.4 g/dl (3.4-5.0); BLOOD UREA NITROGEN 10.3 mg/dL (7-18); MAGNESIUM 2.2 mg/dL (1.8-2.4)
[2021-07-24 09:48] LABS: CREATININE 0.6 mg/dL (0.55-1.3); PHOSPHOROUS 4.1 mg/dL (2.5-4.9)
[2021-07-24 09:49] LABS: TOT PROT 7.6 g/dl (6.4-8.2)
[2021-07-24 09:50] LABS: BILIRUBIN,TOTAL 0.4 mg/dL (0.2-1)
[2021-07-24] MEDS: ENOXAPARIN NA (PORCINE) 40 MG/0.4 ML DISP.SYRIN SQ SCH (10:02)
[2021-07-24] MEDS: LACTOBACILLUS ACIDOPHILUS 1 TABLET PO SCH (10:02)
[2021-07-24] MEDS ORDERED: IBUPROFEN 800 MG/8 ML IJ IVPB PRN (11:55)
[2021-07-24] MEDS ORDERED: DALBAVANCIN HCL 1,500 MG in DEXTROSE 5%-WATER - 500 ML IVPB ONE (13:31)
[2021-07-24] MEDS: LISINOPRIL 20 MG TABLET PO SCH (21:16)
[2021-07-24] MEDS: MELATONIN 5 MG TABLETS PO PRN (21:16)
[2021-07-25] MEDS: ACETAMINOPHEN 500 MG TABLET (FP) PO PRN ×3 (00:59→23:55)
[2021-07-25] MEDS: AMPICILLIN NA/SULBACTAM NA 3 GM in SODIUM CHLORIDE 100 ML IVPB SCH ×3 (01:00→18:09)
[2021-07-25] MEDS: INSULIN (LEVEMIR) 100 UNITS/ML UNITS SQ SCH ×2 (06:29→21:25)
[2021-07-25] MEDS: INSULIN SLIDING SCALE (NOVOLOG) 1 VIAL SQ SCH ×4 (06:29→21:25)
[2021-07-25] MEDS ORDERED: AMPICILLIN NA/SULBACTAM NA 3 GM VIAL ONE (09:18)
[2021-07-25] MEDS ORDERED: SODIUM CHLORIDE 100 ML IVPB ONE (09:18)
[2021-07-25] MEDS: ENOXAPARIN NA (PORCINE) 40 MG/0.4 ML DISP.SYRIN SQ SCH (09:24)
[2021-07-25] MEDS: LACTOBACILLUS ACIDOPHILUS 1 TABLET PO SCH (09:24)
[2021-07-25 10:30] LABS: HEMATOCRIT 36.5 % (35.4-49); HEMOGLOBIN 12.5 GM/dL (11.7-16.9); MCH 30.3 pg (25.7-33.7); MCHC 34.3 g/dl (32.0-35.9); MEAN CELL VOLUME 88.1 fl (80-96); MEAN PLT VOLUME 8.8 fl (7.5-11.1); PLATELET COUNT 228 10^3/uL (134-434); RBC 4.15 M/mm3 (4.00-5.60); RDW 13.5 % (11.9-15.9); WHITE BLOOD COUNT 5.9 K/mm3 (4.0-10.0)
[2021-07-25 11:02] LABS: CALCIUM 9.2 mg/dL (8.5-10.1)
[2021-07-25 11:06] LABS: CREATININE 0.7 mg/dL (0.55-1.3)
[2021-07-25] MEDS ORDERED: INSULIN (NOVOLOG) ASPART 100 UNITS/ML 10ML VIAL ONE (11:15)
[2021-07-25] MEDS: guaiFENesin/D-M SUGAR-FREE/ACLHOL-FREE 5 ML UNIT DOSE PO PRN (17:25)
[2021-07-25] MEDS: LISINOPRIL 20 MG TABLET PO SCH (21:26)
[2021-07-26] MEDS ORDERED: SODIUM CHLORIDE 100 ML IVPB ONE (01:10)
[2021-07-26] MEDS ORDERED: AMPICILLIN NA/SULBACTAM NA 3 GM VIAL ONE (01:10)
[2021-07-26] MEDS: AMPICILLIN NA/SULBACTAM NA 3 GM in SODIUM CHLORIDE 100 ML IVPB SCH (01:22)
[2021-07-26] MEDS: ACETAMINOPHEN 500 MG TABLET (FP) PO PRN ×2 (05:32→17:05)
[2021-07-26] MEDS: INSULIN SLIDING SCALE (NOVOLOG) 1 VIAL SQ SCH ×4 (06:46→22:11)
[2021-07-26] MEDS: INSULIN (LEVEMIR) 100 UNITS/ML UNITS SQ SCH ×2 (06:46→22:11)
[2021-07-26] MEDS ORDERED: INSULIN (NOVOLOG) ASPART 100 UNITS/ML 10ML VIAL ONE (07:40)
[2021-07-26] MEDS ORDERED: INSULIN (LEVEMIR) 100 UNITS/ML UNITS SQ ONE (07:41)
[2021-07-26] MEDS: AMOX TR/POT CLAV 875MG/125MG TABLETS (FP) PO SCH ×2 (08:54→17:03)
[2021-07-26] MEDS: LACTOBACILLUS ACIDOPHILUS 1 TABLET PO SCH (10:26)
[2021-07-26] MEDS: ENOXAPARIN NA (PORCINE) 40 MG/0.4 ML DISP.SYRIN SQ SCH (10:26)
[2021-07-26] MEDS: guaiFENesin/D-M SUGAR-FREE/ACLHOL-FREE 5 ML UNIT DOSE PO PRN ×2 (10:33→17:06)
[2021-07-26] MEDS: MELATONIN 5 MG TABLETS PO PRN (22:08)
[2021-07-26] MEDS: LISINOPRIL 20 MG TABLET PO SCH (22:08)
[2021-07-27] MEDS: ACETAMINOPHEN 500 MG TABLET (FP) PO PRN ×3 (05:57→23:11)
[2021-07-27] MEDS: INSULIN SLIDING SCALE (NOVOLOG) 1 VIAL SQ SCH ×4 (06:03→21:01)
[2021-07-27] MEDS: INSULIN (LEVEMIR) 100 UNITS/ML UNITS SQ SCH ×2 (06:03→21:01)
[2021-07-27] MEDS: guaiFENesin/D-M SUGAR-FREE/ACLHOL-FREE 5 ML UNIT DOSE PO PRN ×2 (06:29→16:22)
[2021-07-27] MEDS ORDERED: INSULIN (NOVOLOG) ASPART 100 UNITS/ML 10ML VIAL ONE (06:54)
[2021-07-27] MEDS: AMOX TR/POT CLAV 875MG/125MG TABLETS (FP) PO SCH ×2 (08:17→18:05)
[2021-07-27] MEDS: LACTOBACILLUS ACIDOPHILUS 1 TABLET PO SCH (09:17)
[2021-07-27] MEDS: ENOXAPARIN NA (PORCINE) 40 MG/0.4 ML DISP.SYRIN SQ SCH (09:17)
[2021-07-27] MEDS: LISINOPRIL 20 MG TABLET PO SCH (21:01)
[2021-07-27] MEDS: MELATONIN 5 MG TABLETS PO PRN (21:02)
[2021-07-28] MEDS: ACETAMINOPHEN 500 MG TABLET (FP) PO PRN (05:05)
[2021-07-28] MEDS: INSULIN SLIDING SCALE (NOVOLOG) 1 VIAL SQ SCH ×2 (06:02→11:01)
[2021-07-28] MEDS: INSULIN (LEVEMIR) 100 UNITS/ML UNITS SQ SCH (06:02)
[2021-07-28] MEDS: AMOX TR/POT CLAV 875MG/125MG TABLETS (FP) PO SCH (08:45)
[2021-07-28] MEDS: LACTOBACILLUS ACIDOPHILUS 1 TABLET PO SCH (09:03)
[2021-07-28 14:57] VITALS: BP 147/55; PULSE 82; TEMP 98.4
== END 2021-07-28 17:07 | disposition home or self-care (01) | DRG 314 ==
LOC: JER 02:47 → JERBED 03:57 → J6S 13:35
PROVIDERS: ADMIT Hospitalist; ATTEND Internal Medicine
PROC: XW033E5 Introduction of Remdesivir Anti-infective into Peripheral Vein, Percutaneous Approach, New Technology Group 5 (ICD-10-PCS; 2021-07-16)
PROC: 0SBN0ZZ Excision of Left Metatarsal-Phalangeal Joint, Open Approach (ICD-10-PCS; principal; 2021-07-20 11:00)
PROC: 0QBP0ZX Excision of Left Metatarsal, Open Approach, Diagnostic (ICD-10-PCS; 2021-07-20 11:00)
DX: E11.621 Type 2 diabetes mellitus with foot ulcer (principal); U07.1 COVID-19; M86.172 Other acute osteomyelitis, left ankle and foot; I10 Essential (primary) hypertension; E11.65 Type 2 diabetes mellitus with hyperglycemia; L97.529 Non-pressure chronic ulcer of other part of left foot with unspecified severity; E11.69 Type 2 diabetes mellitus with other specified complication; D72.829 Elevated white blood cell count, unspecified; F17.210 Nicotine dependence, cigarettes, uncomplicated; F19.10 Other psychoactive substance abuse, uncomplicated; E78.5 Hyperlipidemia, unspecified; F10.10 Alcohol abuse, uncomplicated; F12.20 Cannabis dependence, uncomplicated
CPT/HCPCS: 36415; 71045-TC-FY; 73630-TC-LT; 73718-TC-LT; 80048; 80053; 81003; 82728; 82962; 83036; 83735; 84100; 85025; 85027; 85379; 85610; 85651; 85730; 86140; 86850; 86900; 86901; 87040; 87070; 87075; 87086; 87186; 87205; 87811; 88304-TC; 88311-TC; 93005; 93010; 97116-GP; 97162-GP; 99285-25; C9399; C9803-CS; J0735; U0003; U0005

== ENCOUNTER 2021-08-02 18:36 | Emergency (ER) | payer OTHER ==
[2021-08-02 19:03] VITALS: BP 128/78; PULSE 87; TEMP 98.9; BMI 31.3
== END 2021-08-02 21:01 | disposition home or self-care (01) ==
LOC: JCOVINFU 18:36
DX: U07.1 COVID-19 (principal)
CPT/HCPCS: 99282-25

== ENCOUNTER 2021-08-08 17:39 | Inpatient (IN) | payer OTHER ==
[2021-08-08 21:31] VITALS: BMI 29.5
[2021-08-08] MEDS ORDERED: BISMUTH SUBSALICYLATE 524 MG/30 ML PO PRN (21:42)
[2021-08-08] MEDS ORDERED: MAGNESIUM CITRATE 300 ML BOTTLE PO PRN (21:42)
[2021-08-08] MEDS ORDERED: MAGNESIUM HYDROX 2400MG/30ML ORAL SUSPENSION 30 ML CUP PO PRN (21:42)
[2021-08-08] MEDS ORDERED: NICOTINE POLACRILEX 2 MG GUM BUC PRN (21:42)
[2021-08-08] MEDS ORDERED: guaiFENesin 200 MG/10 ML 10 ML UNIT-DOSE CUPS PO PRN (21:42)
[2021-08-08] MEDS ORDERED: BENZOCAINE/MENTHOL (CHLORASEPTIC ) LOZENGE MM PRN (21:42)
[2021-08-08] MEDS ORDERED: P-EPHED 60MG/TRIPROLIDI 2.5MG TABLET PO PRN (21:42)
[2021-08-08] MEDS ORDERED: MAG HYDROX/AL HYDROX/SIMETH 30 ML UNIT-DOSE CUP PO PRN (21:42)
[2021-08-08] MEDS ORDERED: DICYCLOMINE HCL 10 MG CAPSULE PO PRN (21:42)
[2021-08-08] MEDS ORDERED: NICOTINE 10 MG CARTRIDGE (INHALER) IH PRN (21:42)
[2021-08-08] MEDS ORDERED: LOPERAMIDE HCL 2 MG CAPSULE PO PRN (21:42)
[2021-08-08] MEDS ORDERED: ACETAMINOPHEN 325 MG TABLET (FP) PO PRN ×2 (21:42)
[2021-08-08] MEDS ORDERED: ONDANSETRON *ODT* 4 MG TABLET SL PRN (21:42)
[2021-08-08] MEDS ORDERED: hydrOXYzine PAMOATE 25 MG CAPSULE (FP) PO PRN (21:42)
[2021-08-08] MEDS ORDERED: METHOCARBAMOL 500 MG TABLET ONE (22:03)
[2021-08-08] MEDS ORDERED: IBUPROFEN 600 MG TABLET (FP) PO ONE (22:04)
[2021-08-08] MEDS: IBUPROFEN 600 MG TABLET (FP) PO PRN (22:05)
[2021-08-08] MEDS: METHOCARBAMOL 500 MG TABLET PO PRN (22:05)
[2021-08-09] MEDS: INSULIN SLIDING SCALE (NOVOLOG) 1 VIAL SQ SCH ×5 (00:38→22:51)
[2021-08-09] MEDS: THIAMINE HCL 100 MG TABLET (FP) PO SCH ×2 (00:38→22:51)
[2021-08-09] MEDS: LISINOPRIL 20 MG TABLET PO SCH ×2 (00:39→22:51)
[2021-08-09] MEDS: MELATONIN 5 MG TABLETS PO PRN ×2 (01:00→22:52)
[2021-08-09] MEDS: METHOCARBAMOL 500 MG TABLET PO PRN ×2 (05:49→10:06)
[2021-08-09] MEDS: IBUPROFEN 600 MG TABLET (FP) PO PRN ×2 (05:49→14:01)
[2021-08-09] MEDS: glyBURIDE 5 MG TABLET PO SCH (07:13)
[2021-08-09] MEDS: PRENATAL VITAMINS W/ FOLIC ACID TABLET (FP) PO SCH (10:04)
[2021-08-09] MEDS ORDERED: INSULIN (NOVOLOG) ASPART 100 UNITS/ML 10ML VIAL ONE ×2 (11:34→22:50)
[2021-08-10] MEDS: IBUPROFEN 600 MG TABLET (FP) PO PRN (03:49)
[2021-08-10] MEDS: METHOCARBAMOL 500 MG TABLET PO PRN (03:49)
[2021-08-10] MEDS: glyBURIDE 5 MG TABLET PO SCH (07:18)
[2021-08-10] MEDS: INSULIN SLIDING SCALE (NOVOLOG) 1 VIAL SQ SCH ×2 (07:31→11:43)
[2021-08-10] MEDS ORDERED: INSULIN (NOVOLOG) ASPART 100 UNITS/ML 10ML VIAL ONE ×2 (08:04→11:37)
[2021-08-10 09:36] VITALS: BP 117/67; PULSE 81; TEMP 97.9
[2021-08-10] MEDS: PRENATAL VITAMINS W/ FOLIC ACID TABLET (FP) PO SCH (10:05)
== END 2021-08-10 13:05 | disposition home or self-care (01) | DRG 774 ==
LOC: YASAS 17:39 → Y6N 23:05
PROVIDERS: ADMIT Allergy & Immunology; ATTEND Surgery
PROC: HZ2ZZZZ Detoxification Services for Substance Abuse Treatment (ICD-10-PCS; principal; 2021-08-08)
DX: F10.230 Alcohol dependence with withdrawal, uncomplicated (principal); F14.20 Cocaine dependence, uncomplicated; F12.20 Cannabis dependence, uncomplicated; F17.210 Nicotine dependence, cigarettes, uncomplicated; E11.621 Type 2 diabetes mellitus with foot ulcer; L97.426 Non-pressure chronic ulcer of left heel and midfoot with bone involvement without evidence of necrosis; E11.42 Type 2 diabetes mellitus with diabetic polyneuropathy; E11.65 Type 2 diabetes mellitus with hyperglycemia; Z79.84 Long term (current) use of oral hypoglycemic drugs; Z99.89 Dependence on other enabling machines and devices; Z28.310 Unvaccinated for COVID-19; Z28.20 Immunization not carried out because of patient decision for unspecified reason
CPT/HCPCS: 82962; 87811; C9803-CS; U0003; U0005

== ENCOUNTER 2022-07-16 11:26 | Inpatient (IN) | payer OTHER ==
[2022-07-16] MEDS ORDERED: NALOXONE HCL 0.4 MG/ML VIAL IM PRN (12:57)
[2022-07-16] MEDS ORDERED: NALOXONE HCL (KLOXXADO) 8 MG SPRAY NS PRN (12:57)
[2022-07-16] MEDS ORDERED: LOPERAMIDE HCL 2 MG CAPSULE PO PRN (12:57)
[2022-07-16] MEDS ORDERED: IBUPROFEN 400 MG TABLET (FP) PO PRN (12:57)
[2022-07-16] MEDS ORDERED: POLYETHYLENE GLYCOL (HEALTHYLAX) 3350 17 GM PACKET PO PRN (12:57)
[2022-07-16] MEDS ORDERED: ACETAMINOPHEN 325 MG TABLET (FP) PO PRN (12:57)
[2022-07-16] MEDS ORDERED: NICOTINE 10 MG CARTRIDGE (INHALER) IH PRN (12:57)
[2022-07-16] MEDS ORDERED: guaiFENesin 600 MG TABLET.ER (FP) PO PRN (12:57)
[2022-07-16] MEDS ORDERED: AMMONIUM LACTATE 12% LOTION 225 GM BOTTLE TP PRN (12:57)
[2022-07-16] MEDS ORDERED: MAGNESIUM HYDROX 2400MG/30ML ORAL SUSPENSION 30 ML CUP PO PRN (12:57)
[2022-07-16] MEDS ORDERED: DICYCLOMINE HCL 10 MG CAPSULE PO PRN (12:57)
[2022-07-16] MEDS ORDERED: BENZONATATE 200 MG CAPSULE PO PRN (12:57)
[2022-07-16] MEDS ORDERED: IBUPROFEN 600 MG TABLET (FP) PO PRN (12:57)
[2022-07-16] MEDS ORDERED: BENZOCAINE/MENTHOL (CHLORASEPTIC ) LOZENGE MM PRN (12:57)
[2022-07-16] MEDS ORDERED: BISMUTH SUBSALICYLATE 262 MG/15 ML BTL PO PRN (12:57)
[2022-07-16] MEDS ORDERED: NICOTINE POLACRILEX 2 MG GUM BUC PRN (12:57)
[2022-07-16] MEDS ORDERED: COLLOIDAL OATMEAL 1 BAR EACH TP PRN (12:57)
[2022-07-16] MEDS: ONDANSETRON *ODT* 4 MG TABLET SL PRN ×2 (14:08→22:35)
[2022-07-16] MEDS: LISINOPRIL 20 MG TABLET PO SCH (14:08)
[2022-07-16] MEDS: NICOTINE 21 MG/24 HOURS TOPICAL PATCH TD SCH (14:08)
[2022-07-16] MEDS: MAG HYDROX/AL HYDROX/SIMETH 30 ML UNIT-DOSE CUP PO PRN (18:09)
[2022-07-16] MEDS: hydrOXYzine PAMOATE 25 MG CAPSULE (FP) PO PRN (18:09)
[2022-07-16] MEDS ORDERED: TRIMETHOBENZAMIDE HCL 200MG/2ML INJ IM ONE (18:17)
[2022-07-16] MEDS: PANTOPRAZOLE 20 MG TABLET PO SCH (18:51)
[2022-07-16] MEDS: THIAMINE HCL 100 MG TABLET (FP) PO SCH (22:32)
[2022-07-16] MEDS: MELATONIN 5 MG TABLETS PO SCH (22:33)
[2022-07-17] MEDS: glyBURIDE 5 MG TABLET PO SCH (06:13)
[2022-07-17] MEDS: PANTOPRAZOLE 20 MG TABLET PO SCH (11:11)
[2022-07-17] MEDS: PRENATAL VITAMINS W/ FOLIC ACID TABLET (FP) PO SCH (11:11)
[2022-07-17] MEDS: LISINOPRIL 20 MG TABLET PO SCH (11:11)
[2022-07-17] MEDS: NICOTINE 21 MG/24 HOURS TOPICAL PATCH TD SCH (11:11)
[2022-07-17 14:07] VITALS: BMI 28.1
[2022-07-17] MEDS: MAG HYDROX/AL HYDROX/SIMETH 30 ML UNIT-DOSE CUP PO PRN (18:27)
[2022-07-17] MEDS: THIAMINE HCL 100 MG TABLET (FP) PO SCH (22:14)
[2022-07-17] MEDS: MELATONIN 5 MG TABLETS PO SCH (22:14)
[2022-07-17] MEDS: hydrOXYzine PAMOATE 25 MG CAPSULE (FP) PO PRN (22:15)
[2022-07-18] MEDS: MAG HYDROX/AL HYDROX/SIMETH 30 ML UNIT-DOSE CUP PO PRN (01:35)
[2022-07-18] MEDS: ONDANSETRON *ODT* 4 MG TABLET SL PRN (04:20)
[2022-07-18] MEDS: glyBURIDE 5 MG TABLET PO SCH (08:00)
[2022-07-18] MEDS: PRENATAL VITAMINS W/ FOLIC ACID TABLET (FP) PO SCH (09:45)
[2022-07-18] MEDS: LISINOPRIL 20 MG TABLET PO SCH (09:46)
[2022-07-18] MEDS: NICOTINE 21 MG/24 HOURS TOPICAL PATCH TD SCH (09:46)
[2022-07-18] MEDS: PANTOPRAZOLE 20 MG TABLET PO SCH (09:46)
[2022-07-18 09:49] VITALS: BP 151/95; PULSE 79; RESP 18; TEMP 98.4
== END 2022-07-18 13:20 | disposition home or self-care (01) | DRG 775 ==
LOC: YASAS 11:26 → Y6N 13:26 → UNDOADMIN 13:26
PROVIDERS: ADMIT Allergy & Immunology; ATTEND Surgery
PROC: HZ2ZZZZ Detoxification Services for Substance Abuse Treatment (ICD-10-PCS; principal; 2022-07-16)
DX: F10.20 Alcohol dependence, uncomplicated (principal); F12.20 Cannabis dependence, uncomplicated; F17.210 Nicotine dependence, cigarettes, uncomplicated; I10 Essential (primary) hypertension; E11.42 Type 2 diabetes mellitus with diabetic polyneuropathy; E11.621 Type 2 diabetes mellitus with foot ulcer; Z79.84 Long term (current) use of oral hypoglycemic drugs; Z89.422 Acquired absence of other left toe(s); R11.2 Nausea with vomiting, unspecified; Z56.0 Unemployment, unspecified; Z59.00 Homelessness unspecified
CPT/HCPCS: 0241U-QW; 36415; 80053; 80307; 82962; 83690; 83735; 85025; 86780; 87811; 93005; 93010; 99282-25; C9803-CS; Q0162; U0003; U0005

== ENCOUNTER 2022-07-17 02:00 | Emergency (ER) | payer OTHER ==
[2022-07-17 02:06] VITALS: BMI 27.3
[2022-07-17] MEDS ORDERED: ONDANSETRON 4 MG/2 ML VIAL IVPUSH ONE (02:52)
[2022-07-17] MEDS ORDERED: LACTATED RINGERS SOLUTION 1000 ML INFUS.BAG IV ONE (02:53)
[2022-07-17] MEDS ORDERED: ONDANSETRON 4 MG/2 ML VIAL ONE (02:56)
[2022-07-17] MEDS ORDERED: FAMOTIDINE 20 MG/50 ML IVPB 20 MG/50 ML MG IVPB ONE ×2 (02:58→03:10)
[2022-07-17 03:51] LABS: BASO % 0.1 % (0-2.0); HEMOGLOBIN 15.8 GM/dL (11.7-16.9); MEAN CELL VOLUME 85.5 fl (80-96); MEAN PLT VOLUME 8.8 fl (7.5-11.1); MONO % 7.3 % (3.8-10.2); NEUT % 80.6 % (42.8-82.8); PLATELET COUNT 202 10^3/uL (134-434); RBC 5.26 M/mm3 (4.00-5.60); RDW 13.8 % (11.9-15.9); WHITE BLOOD COUNT 9.3 K/mm3 (4.0-10.0)
[2022-07-17 04:08] LABS: POTASSIUM 3.7 mmol/L (3.5-5.1)
[2022-07-17 04:11] LABS: BLOOD UREA NITROGEN 9.7 mg/dL (7-18); CALCIUM 9.3 mg/dL (8.5-10.1); MAGNESIUM 2.4 mg/dL (1.8-2.4)
[2022-07-17 04:14] LABS: CREATININE 0.7 mg/dL (0.55-1.3)
[2022-07-17 04:16] LABS: BILIRUBIN,TOTAL 0.7 mg/dL (0.2-1); TOT PROT 7.7 g/dl (6.4-8.2)
[2022-07-17] MEDS ORDERED: MAG HYDROX/AL HYDROX/SIMETH -MYLANTA- ORAL SUSPENSION PO ONE (07:42)
[2022-07-17] MEDS ORDERED: ACETAMINOPHEN 1000 MG/100 ML BAG IVPB ONE (07:43)
[2022-07-17] MEDS ORDERED: MAG HYDROX/AL HYDROX/SIMETH 30 ML UNIT-DOSE CUP ONE (07:50)
[2022-07-17] MEDS ORDERED: ACETAMINOPHEN INJECTION 100 ML IVPB ONE (07:50)
[2022-07-17] MEDS ORDERED: TRIMETHOBENZAMIDE HCL 200MG/2ML INJ IM ONE (07:57)
[2022-07-17 10:19] VITALS: PULSE 74; RESP 18
[2022-07-17 12:08] VITALS: BP 148/92; TEMP 98.1
[2022-07-17 12:29] LABS: EPI CELLS 9 /uL (0-25.1); HYALINE CASTS 1 /uL (0-3.1); PH,URINE 7.5 (5.0-8.0); URINE APPEARANCE CLEAR; URINE BACTERIA 5 /uL (0-1359); URINE BILIRUBIN NEGATIVE (NEGATIVE); URINE COLOR YELLOW; URINE GLUCOSE (UA) 2+ (NEGATIVE); URINE KETONE 3+ (NEGATIVE); URINE LEUK ESTERASE NEGATIVE (NEGATIVE); URINE NITRITE NEGATIVE (NEGATIVE); URINE PROTEIN 1+ (NEGATIVE); URINE RBC 57 /uL (0-23.9); URINE WBC 5 /uL (0-25.8)
== END 2022-07-17 12:21 | disposition short-term general hospital (02) ==
LOC: JER 02:00
PROC: 3E033GC Introduction of Other Therapeutic Substance into Peripheral Vein, Percutaneous Approach (ICD-10-PCS; principal; 2022-07-17)
PROC: 3E033GC Introduction of Other Therapeutic Substance into Peripheral Vein, Percutaneous Approach (ICD-10-PCS; 2022-07-17)
PROC: 3E033NZ Introduction of Analgesics, Hypnotics, Sedatives into Peripheral Vein, Percutaneous Approach (ICD-10-PCS; 2022-07-17)
PROC: 3E023GC Introduction of Other Therapeutic Substance into Muscle, Percutaneous Approach (ICD-10-PCS; 2022-07-17)
DX: R11.2 Nausea with vomiting, unspecified (principal); R10.9 Unspecified abdominal pain; F10.20 Alcohol dependence, uncomplicated; R51.9 Headache, unspecified
CPT/HCPCS: 36415; 71045-TC-FY; 74177-TC; 80053; 81003; 83690; 83735; 84484; 85025; 87086; 93005; 93010; 96365; 96372; 96375; 99285-25

== ENCOUNTER 2022-10-26 11:29 | Inpatient (IN) | payer SELFPAY ==
[2022-10-26 11:35] VITALS: BMI 31.3
[2022-10-26] MEDS ORDERED: ONDANSETRON *ODT* 4 MG TABLET ONE (12:01)
[2022-10-26] MEDS ORDERED: ONDANSETRON *ODT* 4 MG TABLET SL ONE (12:18)
[2022-10-26] MEDS ORDERED: METOCLOPRAMIDE HCL INJECTION 10 MG/2 ML VIAL ONE (12:38)
[2022-10-26 12:40] LABS: BASO % 0.3 % (0-2.0); EOS % 0.5 % (0-4.5); HEMATOCRIT 47.9 % (35.4-49); HEMOGLOBIN 15.8 GM/dL (11.7-16.9); LYMPH % 12.7 % (8-40); MCH 29.2 pg (25.7-33.7); MEAN CELL VOLUME 88.6 fl (80-96); MEAN PLT VOLUME 9.6 fl (7.5-11.1); MONO % 5.8 % (3.8-10.2); NEUT % 80.7 % (42.8-82.8); PLATELET COUNT 135 10^3/uL (134-434); RDW 14.3 % (11.9-15.9); WHITE BLOOD COUNT 5.3 K/mm3 (4.0-10.0)
[2022-10-26 12:45] LABS: CHLORIDE 96 mmol/L (98-107); POTASSIUM 3.4 mmol/L (3.5-5.1); SODIUM 135 mmol/L (136-145)
[2022-10-26 12:46] LABS: CALCIUM 9.4 mg/dL (8.5-10.1)
[2022-10-26 12:47] LABS: ANION GAP 8 MMOL/L (8-16); CO2 31 mmol/L (21-32); GLUCOSE,RANDOM 194 mg/dL (74-106)
[2022-10-26 12:49] LABS: AMYLASE 67 U/L (25-115); LIPASE 96 U/L (73-393)
[2022-10-26 12:50] LABS: CREATININE 0.7 mg/dL (0.55-1.3); SGOT/AST 39 U/L (15-37)
[2022-10-26 12:52] LABS: BILIRUBIN,TOTAL 0.7 mg/dL (0.2-1)
[2022-10-26 12:53] LABS: ALK PHOS 75 U/L (45-117)
[2022-10-26] MEDS ORDERED: MAG HYDROX/ALH/SMC/DPHA/LIDO 240 ML MOUTHWASH MM SCH ×2 (13:33→18:00)
[2022-10-26 13:35] LABS: SGPT/ALT 31 U/L (13-61)
[2022-10-26] MEDS ORDERED: PROMETHAZINE HCL 25 MG/1 ML VIAL IVPB PRN (13:42)
[2022-10-26] MEDS ORDERED: FOLIC ACID INJECTION - 1 MG, THIAMINE HCL 100 MG, MULTIVIT INJECTION ADULT 10 ML in SOD... IVPB ONE (13:49)
[2022-10-26 14:04] LABS: ERYTHROCYTE SEDIMENTATION RATE 2 mm/hr (0-10)
[2022-10-26] MEDS: MAG HYDROX/ALH/SMC/DPHA/LIDO 240 ML MOUTHWASH MM SCH ×2 (15:18→18:28)
[2022-10-26] MEDS ORDERED: chlordiazePOXIDE HCL 25 MG CAPSULE PO ONE (15:40)
[2022-10-26] MEDS ORDERED: chlordiazePOXIDE HCL 25 MG CAPSULE ONE (16:01)
[2022-10-26 19:02] LABS: POTASSIUM 3.3 mmol/L (3.5-5.1)
[2022-10-26 19:03] LABS: CALCIUM 8.6 mg/dL (8.5-10.1)
[2022-10-26 19:04] LABS: BLOOD UREA NITROGEN 3.5 mg/dL (7-18)
[2022-10-26 19:07] LABS: CREATININE 0.6 mg/dL (0.55-1.3)
[2022-10-26] MEDS ORDERED: ONDANSETRON 4 MG/2 ML VIAL ONE (22:06)
[2022-10-26] MEDS ORDERED: ONDANSETRON 4 MG/2 ML VIAL IVPUSH ONE (22:06)
[2022-10-26] MEDS: PANTOPRAZOLE SODIUM 40 MG VIAL IVPUSH SCH ×2 (22:10→22:12)
[2022-10-26] MEDS: POTASSIUM CHLORIDE 40 MEQ in SODIUM CHLORIDE 1,000 ML IV SCH (22:54)
[2022-10-27] MEDS ORDERED: LORazepam 2 MG/ML SDV VIAL IVPUSH ONE (00:15)
[2022-10-27] MEDS: MAG HYDROX/ALH/SMC/DPHA/LIDO 240 ML MOUTHWASH MM SCH ×5 (00:27→23:07)
[2022-10-27 00:46] LABS: OPIATES, URI NEGATIVE (NEGATIVE); PHENCYCLIDINE,URINE NEGATIVE (NEGATIVE); URINE BARBITURATES NEGATIVE (NEGATIVE)
[2022-10-27 00:47] LABS: METHADONE, UR NEGATIVE (NEGATIVE); URINE AMPHETAMINES NEGATIVE (NEGATIVE); URINE BENZODIAZEPINES NEGATIVE (NEGATIVE)
[2022-10-27] MEDS ORDERED: ONDANSETRON 4 MG/2 ML VIAL IVPUSH PRN (00:54)
[2022-10-27] MEDS ORDERED: LORazepam 2 MG/ML SDV VIAL IVPUSH PRN (00:56)
[2022-10-27] MEDS ORDERED: chlordiazePOXIDE HCL 25 MG CAPSULE PO PRN (01:02)
[2022-10-27 01:50] LABS: COCAINE, UR POSITIVE (NEGATIVE)
[2022-10-27] MEDS: chlordiazePOXIDE HCL 25 MG CAPSULE PO SCH ×5 (05:47→23:07)
[2022-10-27] MEDS: POTASSIUM CHLORIDE 40 MEQ in SODIUM CHLORIDE 1,000 ML IV SCH ×2 (05:55→16:11)
[2022-10-27] MEDS: INSULIN SLIDING SCALE (NOVOLOG) 1 VIAL SQ SCH ×4 (07:45→23:07)
[2022-10-27 08:27] LABS: BASO % 0.2 % (0-2.0); HEMATOCRIT 44.3 % (35.4-49); HEMOGLOBIN 14.9 GM/dL (11.7-16.9); LYMPH % 13.3 % (8-40); MCH 29.6 pg (25.7-33.7); MCHC 33.7 g/dl (32.0-35.9); MEAN CELL VOLUME 87.6 fl (80-96); MEAN PLT VOLUME 9.5 fl (7.5-11.1); MONO % 8.2 % (3.8-10.2); NEUT % 78.3 % (42.8-82.8); PLATELET COUNT 138 10^3/uL (134-434); RBC 5.05 M/mm3 (4.00-5.60); RDW 13.9 % (11.9-15.9); WHITE BLOOD COUNT 7.3 K/mm3 (4.0-10.0)
[2022-10-27 08:38] LABS: POTASSIUM 3.3 mmol/L (3.5-5.1)
[2022-10-27 08:46] LABS: ALBUMIN 3.3 g/dl (3.4-5.0); BLOOD UREA NITROGEN 4.5 mg/dL (7-18); MAGNESIUM 1.7 mg/dL (1.8-2.4)
[2022-10-27 08:49] LABS: CREATININE 0.5 mg/dL (0.55-1.3)
[2022-10-27 08:50] LABS: BILIRUBIN,TOTAL 0.9 mg/dL (0.2-1)
[2022-10-27 08:51] LABS: TOT PROT 6.9 g/dl (6.4-8.2)
[2022-10-27] MEDS ORDERED: FOLIC ACID 1 MG TABLET (FP) PO SCH (10:00)
[2022-10-27] MEDS ORDERED: FAMOTIDINE 20 MG TABLET PO SCH (10:00)
[2022-10-27] MEDS ORDERED: LISINOPRIL 20 MG TABLET PO SCH (10:00)
[2022-10-27] MEDS ORDERED: THIAMINE HCL 200 MG/2 ML VIAL IVPB SCH (10:00)
[2022-10-27] MEDS: PANTOPRAZOLE SODIUM 40 MG VIAL IVPUSH SCH ×2 (10:12→23:07)
[2022-10-28 00:42] VITALS: RESP 18
[2022-10-28] MEDS ORDERED: chlordiazePOXIDE HCL 25 MG CAPSULE PO SCH (05:00)
[2022-10-28] MEDS: INSULIN SLIDING SCALE (NOVOLOG) 1 VIAL SQ SCH (06:08)
[2022-10-28] MEDS: MAG HYDROX/ALH/SMC/DPHA/LIDO 240 ML MOUTHWASH MM SCH (06:08)
[2022-10-28 07:09] VITALS: BP 106/67; PULSE 69; TEMP 97.7
[2022-10-29] MEDS ORDERED: chlordiazePOXIDE HCL 10 MG CAPSULE PO PRN
[2022-10-29] MEDS ORDERED: chlordiazePOXIDE HCL 10 MG CAPSULE PO SCH (05:00)
[2022-10-30] MEDS ORDERED: chlordiazePOXIDE HCL 10 MG CAPSULE PO SCH (05:00)
[2022-10-31] MEDS ORDERED: chlordiazePOXIDE HCL 10 MG CAPSULE PO ONE (05:00)
== END 2022-10-28 08:46 | disposition left against medical advice (07) | DRG 241 ==
LOC: JER 11:29 → JERBED 19:50 → J4S 10-27 01:39
PROVIDERS: ADMIT Internal Medicine; ATTEND Internal Medicine
PROC: HZ2ZZZZ Detoxification Services for Substance Abuse Treatment (ICD-10-PCS; principal; 2022-10-26)
DX: K29.21 Alcoholic gastritis with bleeding (principal); I10 Essential (primary) hypertension; K21.9 Gastro-esophageal reflux disease without esophagitis; Z59.00 Homelessness unspecified; F17.210 Nicotine dependence, cigarettes, uncomplicated; G62.1 Alcoholic polyneuropathy; F10.20 Alcohol dependence, uncomplicated; F14.10 Cocaine abuse, uncomplicated; E11.42 Type 2 diabetes mellitus with diabetic polyneuropathy; E87.6 Hypokalemia; F32.A Depression, unspecified; G47.00 Insomnia, unspecified; Z89.422 Acquired absence of other left toe(s)
CPT/HCPCS: 36415; 74177-TC; 80048; 80053; 80307; 82150; 82962; 83605; 83690; 83735; 84100; 84484; 85025; 85651; 86140; 93005; 93010; 99285-25; Q0162; Q9967

== ENCOUNTER 2022-12-17 15:09 | Inpatient (IN) | payer OTHER ==
[2022-12-17] MEDS ORDERED: SODIUM CHLORIDE 2,449 ML IV ONE (17:34)
[2022-12-17] MEDS ORDERED: ACETAMINOPHEN 1000 MG/100 ML BAG IVPB ONE (17:36)
[2022-12-17] MEDS ORDERED: PIPERACILLIN/TAZOB 4.5 GM 4.5 GM in DEXTROSE 5%-WATER 100 ML IVPB ONE (18:02)
[2022-12-17] MEDS ORDERED: VANCOMYCIN 1,000 MG in DEXTROSE 5%-WATER - 250 ML IVPB ONE (18:02)
[2022-12-17] MEDS ORDERED: VANCOMYCIN 1 GRAM (PRE-DOCKED) 1,000 MG/250 ML BAG IVPB ONE (19:01)
[2022-12-17] MEDS ORDERED: PIPERACILLIN/TAZOB 4.5 GM 4.5 GM/100 ML BAG IVPB ONE (19:01)
[2022-12-17] MEDS ORDERED: ACETAMINOPHEN INJECTION 100 ML IVPB ONE (19:01)
[2022-12-17 19:32] LABS: BASO % 0.5 % (0-2.0); EOS % 0.9 % (0-4.5); HEMATOCRIT 41.1 % (35.4-49); HEMOGLOBIN 14.2 GM/dL (11.7-16.9); LYMPH % 14.1 % (8-40); MCH 29.8 pg (25.7-33.7); MCHC 34.6 g/dl (32.0-35.9); MEAN CELL VOLUME 86.2 fl (80-96); MEAN PLT VOLUME 8.3 fl (7.5-11.1); MONO % 13.4 % (3.8-10.2); NEUT % 71.1 % (42.8-82.8); PLATELET COUNT 189 10^3/uL (134-434); RBC 4.77 M/mm3 (4.00-5.60); RDW 14.7 % (11.9-15.9); WHITE BLOOD COUNT 5.4 K/mm3 (4.0-10.0)
[2022-12-17 19:43] LABS: INR 1.11 (0.83-1.09); PROTHROMBIN TIME (PATIENT) 12.9 SEC (9.7-13.0)
[2022-12-17 19:46] LABS: ACTIVATED PTT 34.5 SECONDS (25.2-36.5)
[2022-12-17 19:58] LABS: POTASSIUM 3.9 mmol/L (3.5-5.1)
[2022-12-17 20:01] LABS: ALBUMIN 3.7 g/dl (3.4-5.0); BLOOD UREA NITROGEN 8.8 mg/dL (7-18); CALCIUM 8.8 mg/dL (8.5-10.1)
[2022-12-17 20:04] LABS: CREATININE 0.8 mg/dL (0.55-1.3)
[2022-12-17 20:06] LABS: BILIRUBIN,TOTAL 0.6 mg/dL (0.2-1); TOT PROT 7.1 g/dl (6.4-8.2)
[2022-12-17 20:19] LABS: LACTIC ACID 2.4 mmol/L (0.4-2.0)
[2022-12-17] MEDS ORDERED: SODIUM CHLORIDE 0.9% 500 ML INFUS.BAG IV ONE (20:20)
[2022-12-17 21:56] LABS: LACTIC ACID 3.1 mmol/L (0.4-2.0)
[2022-12-17 22:31] LABS: ERYTHROCYTE SEDIMENTATION RATE 9 mm/hr (0-10)
[2022-12-18] MEDS: SODIUM CHLORIDE 1,000 ML IV SCH ×2 (00:22→08:24)
[2022-12-18] MEDS: INSULIN SLIDING SCALE (NOVOLOG) 1 VIAL SQ SCH ×4 (03:05→17:29)
[2022-12-18] MEDS: PIPERACILLIN/TAZOB 3.375 GM 3.375 GM in DEXTROSE 5%-WATER - 50 ML IVPB SCH ×4 (03:07→11:44)
[2022-12-18 03:58] VITALS: BMI 27.9
[2022-12-18] MEDS: glyBURIDE 5 MG TABLET PO SCH (09:05)
[2022-12-18] MEDS: FAMOTIDINE 20 MG TABLET PO SCH (09:09)
[2022-12-18] MEDS: ENOXAPARIN NA (PORCINE) 40 MG/0.4 ML DISP.SYRIN SQ SCH (09:09)
[2022-12-18] MEDS ORDERED: LISINOPRIL 20 MG TABLET PO SCH ×2 (10:00)
[2022-12-18 10:23] LABS: BASO % 0.5 % (0-2.0); EOS % 3.4 % (0-4.5); HEMATOCRIT 37.5 % (35.4-49); HEMOGLOBIN 12.4 GM/dL (11.7-16.9); LYMPH % 22.6 % (8-40); MCH 29.4 pg (25.7-33.7); MCHC 33.2 g/dl (32.0-35.9); MEAN CELL VOLUME 88.7 fl (80-96); MEAN PLT VOLUME 8.4 fl (7.5-11.1); NEUT % 57.5 % (42.8-82.8); PLATELET COUNT 175 10^3/uL (134-434); RBC 4.23 M/mm3 (4.00-5.60); RDW 14.7 % (11.9-15.9); WHITE BLOOD COUNT 4.1 K/mm3 (4.0-10.0)
[2022-12-18 10:48] LABS: LACTIC ACID 2.8 mmol/L (0.4-2.0)
[2022-12-18 11:03] LABS: ALBUMIN 3.1 g/dl (3.4-5.0); BLOOD UREA NITROGEN 8.1 mg/dL (7-18); CALCIUM 7.7 mg/dL (8.5-10.1)
[2022-12-18 11:06] LABS: CREATININE 0.7 mg/dL (0.55-1.3)
[2022-12-18 11:07] LABS: BILIRUBIN,TOTAL 0.3 mg/dL (0.2-1); TOT PROT 6.1 g/dl (6.4-8.2)
[2022-12-18 13:30] LABS: METHADONE, UR NEGATIVE (NEGATIVE); OPIATES, URI NEGATIVE (NEGATIVE); PHENCYCLIDINE,URINE NEGATIVE (NEGATIVE); URINE BARBITURATES NEGATIVE (NEGATIVE)
[2022-12-18 13:32] LABS: URINE BENZODIAZEPINES NEGATIVE (NEGATIVE)
[2022-12-18 13:37] LABS: COCAINE, UR POSITIVE (NEGATIVE); URINE AMPHETAMINES NEGATIVE (NEGATIVE)
[2022-12-18] MEDS: CEFTRIAXONE 2 GM in DEXTROSE 5%-WATER 100 ML IVPB SCH (15:26)
[2022-12-19] MEDS: INSULIN SLIDING SCALE (NOVOLOG) 1 VIAL SQ SCH ×3 (06:17→18:07)
[2022-12-19] MEDS: glyBURIDE 5 MG TABLET PO SCH (06:17)
[2022-12-19] MEDS: SODIUM CHLORIDE 1,000 ML IV SCH (06:17)
[2022-12-19] MEDS: ACETAMINOPHEN 325 MG TABLET (FP) PO PRN (08:13)
[2022-12-19] MEDS: ENOXAPARIN NA (PORCINE) 40 MG/0.4 ML DISP.SYRIN SQ SCH (10:44)
[2022-12-19] MEDS: FAMOTIDINE 20 MG TABLET PO SCH (10:44)
[2022-12-19 11:04] LABS: BASO % 0.4 % (0-2.0); HEMATOCRIT 38.9 % (35.4-49); HEMOGLOBIN 13.2 GM/dL (11.7-16.9); LYMPH % 26.7 % (8-40); MCH 29.6 pg (25.7-33.7); MCHC 33.8 g/dl (32.0-35.9); MEAN CELL VOLUME 87.5 fl (80-96); MEAN PLT VOLUME 8.3 fl (7.5-11.1); MONO % 14.9 % (3.8-10.2); PLATELET COUNT 198 10^3/uL (134-434); RBC 4.45 M/mm3 (4.00-5.60); RDW 14.7 % (11.9-15.9); WHITE BLOOD COUNT 4.5 K/mm3 (4.0-10.0)
[2022-12-19 11:36] LABS: POTASSIUM 4.3 mmol/L (3.5-5.1)
[2022-12-19 11:41] LABS: ALBUMIN 3.3 g/dl (3.4-5.0); BLOOD UREA NITROGEN 7.5 mg/dL (7-18); CALCIUM 8.1 mg/dL (8.5-10.1)
[2022-12-19 11:44] LABS: CREATININE 0.6 mg/dL (0.55-1.3)
[2022-12-19 11:46] LABS: BILIRUBIN,TOTAL 0.5 mg/dL (0.2-1); TOT PROT 6.8 g/dl (6.4-8.2)
[2022-12-20] MEDS ORDERED: IBUPROFEN 400 MG TABLET (FP) PO ONE (03:19)
[2022-12-20] MEDS: CEFTRIAXONE 2 GM in DEXTROSE 5%-WATER 100 ML IVPB SCH ×2 (06:19→10:30)
[2022-12-20] MEDS: glyBURIDE 5 MG TABLET PO SCH (06:20)
[2022-12-20] MEDS: INSULIN SLIDING SCALE (NOVOLOG) 1 VIAL SQ SCH ×3 (06:24→16:36)
[2022-12-20 09:11] LABS: BASO % 0.7 % (0-2.0); EOS % 6.1 % (0-4.5); HEMATOCRIT 44.1 % (35.4-49); HEMOGLOBIN 14.4 GM/dL (11.7-16.9); LYMPH % 35.6 % (8-40); MCH 29.2 pg (25.7-33.7); MCHC 32.8 g/dl (32.0-35.9); MEAN PLT VOLUME 8.1 fl (7.5-11.1); MONO % 11.6 % (3.8-10.2); PLATELET COUNT 209 10^3/uL (134-434); RBC 4.95 M/mm3 (4.00-5.60); RDW 14.8 % (11.9-15.9)
[2022-12-20 09:40] LABS: POTASSIUM 4.5 mmol/L (3.5-5.1)
[2022-12-20 09:44] LABS: ALBUMIN 3.9 g/dl (3.4-5.0); BLOOD UREA NITROGEN 9.8 mg/dL (7-18); CALCIUM 8.6 mg/dL (8.5-10.1)
[2022-12-20 09:54] LABS: CREATININE 0.6 mg/dL (0.55-1.3)
[2022-12-20 09:55] LABS: BILIRUBIN,TOTAL 0.2 mg/dL (0.2-1); TOT PROT 7.2 g/dl (6.4-8.2)
[2022-12-20] MEDS: ENOXAPARIN NA (PORCINE) 40 MG/0.4 ML DISP.SYRIN SQ SCH (10:30)
[2022-12-20] MEDS: FAMOTIDINE 20 MG TABLET PO SCH (10:30)
[2022-12-20] MEDS: SODIUM CHLORIDE 1,000 ML IV SCH (10:34)
[2022-12-20] MEDS ORDERED: traMADol HCL 50 MG TABLET PO ONE (15:04)
[2022-12-21] MEDS: INSULIN SLIDING SCALE (NOVOLOG) 1 VIAL SQ SCH ×3 (06:35→17:21)
[2022-12-21] MEDS: glyBURIDE 5 MG TABLET PO SCH (06:52)
[2022-12-21] MEDS: ENOXAPARIN NA (PORCINE) 40 MG/0.4 ML DISP.SYRIN SQ SCH (10:38)
[2022-12-21] MEDS: CEFTRIAXONE 2 GM in DEXTROSE 5%-WATER 100 ML IVPB SCH (10:38)
[2022-12-21] MEDS: FAMOTIDINE 20 MG TABLET PO SCH (10:38)
[2022-12-21] MEDS ORDERED: traMADol HCL 50 MG TABLET PO PRN (14:45)
[2022-12-21] MEDS: IBUPROFEN 400 MG TABLET (FP) PO SCH ×2 (15:36→21:39)
[2022-12-21] MEDS: traMADol HCL 50 MG TABLET PO PRN (21:39)
[2022-12-22] MEDS: IBUPROFEN 400 MG TABLET (FP) PO SCH (05:22)
[2022-12-22] MEDS: glyBURIDE 5 MG TABLET PO SCH (06:01)
[2022-12-22] MEDS: traMADol HCL 50 MG TABLET PO PRN ×3 (06:08→19:52)
[2022-12-22] MEDS: INSULIN SLIDING SCALE (NOVOLOG) 1 VIAL SQ SCH ×3 (06:17→18:02)
[2022-12-22] MEDS ORDERED: IBUPROFEN 400 MG TABLET (FP) PO PRN ×2 (08:15)
[2022-12-22] MEDS: ENOXAPARIN NA (PORCINE) 40 MG/0.4 ML DISP.SYRIN SQ SCH (09:36)
[2022-12-22] MEDS: FAMOTIDINE 20 MG TABLET PO SCH (09:36)
[2022-12-22 11:14] LABS: BASO % 0.4 % (0-2.0); EOS % 4.8 % (0-4.5); HEMATOCRIT 38.6 % (35.4-49); HEMOGLOBIN 13.2 GM/dL (11.7-16.9); LYMPH % 28.8 % (8-40); MCH 29.6 pg (25.7-33.7); MEAN CELL VOLUME 86.9 fl (80-96); MEAN PLT VOLUME 8.2 fl (7.5-11.1); MONO % 11.2 % (3.8-10.2); NEUT % 54.8 % (42.8-82.8); PLATELET COUNT 194 10^3/uL (134-434); RBC 4.45 M/mm3 (4.00-5.60); RDW 14.7 % (11.9-15.9); WHITE BLOOD COUNT 4.6 K/mm3 (4.0-10.0)
[2022-12-22 11:34] LABS: POTASSIUM 4.2 mmol/L (3.5-5.1)
[2022-12-22 11:37] LABS: CALCIUM 8.7 mg/dL (8.5-10.1)
[2022-12-22 11:38] LABS: ALBUMIN 3.4 g/dl (3.4-5.0); BLOOD UREA NITROGEN 12.9 mg/dL (7-18)
[2022-12-22 11:39] LABS: PHOSPHOROUS 3.6 mg/dL (2.5-4.9)
[2022-12-22 11:40] LABS: CREATININE 0.6 mg/dL (0.55-1.3)
[2022-12-22 11:41] LABS: BILIRUBIN,TOTAL 0.3 mg/dL (0.2-1); TOT PROT 6.9 g/dl (6.4-8.2)
[2022-12-23] MEDS: ACETAMINOPHEN 325 MG TABLET (FP) PO PRN (01:05)
[2022-12-23] MEDS: traMADol HCL 50 MG TABLET PO PRN ×3 (03:30→19:35)
[2022-12-23] MEDS: glyBURIDE 5 MG TABLET PO SCH (06:16)
[2022-12-23] MEDS: INSULIN SLIDING SCALE (NOVOLOG) 1 VIAL SQ SCH ×3 (06:17→16:40)
[2022-12-23] MEDS: ENOXAPARIN NA (PORCINE) 40 MG/0.4 ML DISP.SYRIN SQ SCH (09:50)
[2022-12-23] MEDS: FAMOTIDINE 20 MG TABLET PO SCH (09:50)
[2022-12-24] MEDS: ACETAMINOPHEN 325 MG TABLET (FP) PO PRN (01:39)
[2022-12-24] MEDS: traMADol HCL 50 MG TABLET PO PRN ×3 (04:34→20:00)
[2022-12-24] MEDS: INSULIN SLIDING SCALE (NOVOLOG) 1 VIAL SQ SCH ×3 (06:08→17:22)
[2022-12-24] MEDS: glyBURIDE 5 MG TABLET PO SCH (06:08)
[2022-12-24] MEDS ORDERED: INSULIN SLIDING SCALE (NOVOLOG) 1 VIAL SQ ONE (06:37)
[2022-12-24] MEDS ORDERED: BUPIVACAINE HCL/PF 0.5% (5MG/ML) 10 ML VIAL ONE (07:17)
[2022-12-24] MEDS ORDERED: LIDOCAINE HCL 2% (20ML MULTI-DOSE VIAL) ONE (07:17)
[2022-12-24] MEDS ORDERED: FENTANYL CITRATE/PF 50 MCG/ML VIAL ONE (07:47)
[2022-12-24] MEDS ORDERED: PROPOFOL 40 ML ONE (07:47)
[2022-12-24] MEDS ORDERED: MIDAZOLAM HCL 2 MG/2 ML SINGLE DOSE VIAL ONE ×3 (07:48→08:12)
[2022-12-24] MEDS ORDERED: SUCCINYLCHOLINE CHLORIDE 200 MG/10 ML SYRINGE ONE (08:17)
[2022-12-24] MEDS ORDERED: LIDOCAINE HCL 2% (50ML VIAL) INF ONE ×2 (08:22)
[2022-12-24] MEDS ORDERED: BUPIVACAINE HCL/PF 0.5% (5MG/ML) 10 ML VIAL IJ ONE ×3 (08:22)
[2022-12-24] MEDS ORDERED: PROPOFOL 20 ML ONE ×2 (08:35→08:37)
[2022-12-24] MEDS ORDERED: ROCURONIUM BROMIDE 50 MG/5 ML SYRINGE ONE (08:35)
[2022-12-24] MEDS ORDERED: ACETAMINOPHEN 325 MG TABLET (FP) PO PRN (08:52)
[2022-12-24] MEDS ORDERED: IBUPROFEN 600 MG TABLET (FP) PO PRN (08:52)
[2022-12-24] MEDS ORDERED: LACTATED RINGERS SOLUTION 1,000 ML IV SCH (09:15)
[2022-12-24] MEDS: FAMOTIDINE 20 MG TABLET PO SCH (09:43)
[2022-12-24 09:51] VITALS: RESP 18
[2022-12-24] MEDS ORDERED: ENOXAPARIN NA (PORCINE) 40 MG/0.4 ML DISP.SYRIN SQ SCH (10:00)
[2022-12-24] MEDS: CEFTRIAXONE 2 GM in DEXTROSE 5%-WATER 100 ML IVPB SCH (12:07)
[2022-12-25] MEDS: traMADol HCL 50 MG TABLET PO PRN (04:16)
[2022-12-25] MEDS: glyBURIDE 5 MG TABLET PO SCH (06:36)
[2022-12-25] MEDS: INSULIN SLIDING SCALE (NOVOLOG) 1 VIAL SQ SCH ×3 (06:37→17:00)
[2022-12-25 09:25] LABS: BASO % 0.4 % (0-2.0); EOS % 5.1 % (0-4.5); HEMATOCRIT 39.2 % (35.4-49); HEMOGLOBIN 12.7 GM/dL (11.7-16.9); LYMPH % 28.5 % (8-40); MCH 28.9 pg (25.7-33.7); MCHC 32.4 g/dl (32.0-35.9); MEAN CELL VOLUME 89.2 fl (80-96); MEAN PLT VOLUME 8.7 fl (7.5-11.1); MONO % 11.2 % (3.8-10.2); NEUT % 54.8 % (42.8-82.8); PLATELET COUNT 182 10^3/uL (134-434); RDW 14.8 % (11.9-15.9)
[2022-12-25 09:45] LABS: POTASSIUM 4.5 mmol/L (3.5-5.1)
[2022-12-25 09:58] LABS: CALCIUM 8.7 mg/dL (8.5-10.1)
[2022-12-25 09:59] LABS: ALBUMIN 3.7 g/dl (3.4-5.0); BLOOD UREA NITROGEN 14.9 mg/dL (7-18); MAGNESIUM 2.3 mg/dL (1.8-2.4)
[2022-12-25] MEDS ORDERED: ENOXAPARIN NA (PORCINE) 40 MG/0.4 ML DISP.SYRIN SQ SCH (10:00)
[2022-12-25 10:02] LABS: BILIRUBIN,TOTAL 0.7 mg/dL (0.2-1); CREATININE 0.5 mg/dL (0.55-1.3); PHOSPHOROUS 4.5 mg/dL (2.5-4.9); TOT PROT 7.3 g/dl (6.4-8.2)
[2022-12-25] MEDS: FAMOTIDINE 20 MG TABLET PO SCH (11:13)
[2022-12-25] MEDS: ENOXAPARIN NA (PORCINE) 40 MG/0.4 ML DISP.SYRIN SQ SCH (11:13)
[2022-12-25] MEDS: CEFTRIAXONE 2 GM in DEXTROSE 5%-WATER 100 ML IVPB SCH (11:13)
[2022-12-25] MEDS ORDERED: traMADol HCL 50 MG TABLET PO ONE (11:15)
[2022-12-25] MEDS ORDERED: LIDOCAINE 5% TOPICAL PATCH TP SCH (14:15)
[2022-12-25] MEDS: LIDOCAINE 4% PATCH TP SCH (14:45)
[2022-12-25] MEDS: ACETAMINOPHEN 1000 MG/100 ML BAG IVPB SCH ×2 (14:54→21:13)
[2022-12-25] MEDS: GABAPENTIN 300 MG CAPSULE PO SCH ×2 (14:54→21:13)
[2022-12-25] MEDS: LIDOCAINE PATCH REMOVAL MC SCH (21:13)
[2022-12-26] MEDS: glyBURIDE 5 MG TABLET PO SCH (06:19)
[2022-12-26] MEDS: GABAPENTIN 300 MG CAPSULE PO SCH ×3 (06:19→21:26)
[2022-12-26] MEDS: INSULIN SLIDING SCALE (NOVOLOG) 1 VIAL SQ SCH ×3 (06:21→16:17)
[2022-12-26] MEDS: ACETAMINOPHEN 1000 MG/100 ML BAG IVPB SCH ×3 (06:21→21:26)
[2022-12-26] MEDS: CEFTRIAXONE 2 GM in DEXTROSE 5%-WATER 100 ML IVPB SCH (09:50)
[2022-12-26] MEDS: LIDOCAINE 4% PATCH TP SCH (09:51)
[2022-12-26] MEDS: ENOXAPARIN NA (PORCINE) 40 MG/0.4 ML DISP.SYRIN SQ SCH (09:51)
[2022-12-26] MEDS: FAMOTIDINE 20 MG TABLET PO SCH (09:51)
[2022-12-26 10:46] LABS: BASO % 0.7 % (0-2.0); EOS % 4.4 % (0-4.5); HEMATOCRIT 38.2 % (35.4-49); HEMOGLOBIN 12.8 GM/dL (11.7-16.9); LYMPH % 21.1 % (8-40); MCH 29.4 pg (25.7-33.7); MCHC 33.5 g/dl (32.0-35.9); MEAN CELL VOLUME 87.9 fl (80-96); MEAN PLT VOLUME 8.7 fl (7.5-11.1); MONO % 10.3 % (3.8-10.2); NEUT % 63.5 % (42.8-82.8); PLATELET COUNT 179 10^3/uL (134-434); RBC 4.34 M/mm3 (4.00-5.60); RDW 14.7 % (11.9-15.9); WHITE BLOOD COUNT 4.5 K/mm3 (4.0-10.0)
[2022-12-26 11:01] LABS: POTASSIUM 4.2 mmol/L (3.5-5.1)
[2022-12-26 11:07] LABS: CALCIUM 8.9 mg/dL (8.5-10.1)
[2022-12-26 11:08] LABS: ALBUMIN 3.6 g/dl (3.4-5.0); BLOOD UREA NITROGEN 13.7 mg/dL (7-18)
[2022-12-26 11:11] LABS: CREATININE 0.7 mg/dL (0.55-1.3)
[2022-12-26 11:13] LABS: BILIRUBIN,TOTAL 0.4 mg/dL (0.2-1); TOT PROT 7.2 g/dl (6.4-8.2)
[2022-12-26] MEDS: LIDOCAINE PATCH REMOVAL MC SCH (21:39)
[2022-12-27] MEDS: ACETAMINOPHEN 1000 MG/100 ML BAG IVPB SCH ×2 (02:54→09:49)
[2022-12-27] MEDS: glyBURIDE 5 MG TABLET PO SCH (06:14)
[2022-12-27] MEDS: GABAPENTIN 300 MG CAPSULE PO SCH (06:14)
[2022-12-27] MEDS: INSULIN SLIDING SCALE (NOVOLOG) 1 VIAL SQ SCH ×2 (06:22→12:10)
[2022-12-27 06:32] VITALS: BP 111/69; PULSE 94; TEMP 98
[2022-12-27] MEDS: CEFTRIAXONE 2 GM in DEXTROSE 5%-WATER 100 ML IVPB SCH (09:48)
[2022-12-27] MEDS: FAMOTIDINE 20 MG TABLET PO SCH (09:50)
[2022-12-27] MEDS: ENOXAPARIN NA (PORCINE) 40 MG/0.4 ML DISP.SYRIN SQ SCH (09:50)
[2022-12-27] MEDS: LIDOCAINE 4% PATCH TP SCH (09:51)
== END 2022-12-27 13:55 | disposition home or self-care (01) | DRG 383 ==
LOC: JER 15:09 → JERBED 21:47 → J5S 12-18 02:43
PROVIDERS: ADMIT Internal Medicine; ATTEND Internal Medicine
PROC: 0Q9 Lower Bones, Drainage (ICD-10-PCS; principal; 2022-12-24 08:00)
DX: L03.116 Cellulitis of left lower limb (principal); E11.69 Type 2 diabetes mellitus with other specified complication; E11.65 Type 2 diabetes mellitus with hyperglycemia; I95.89 Other hypotension; E87.1 Hypo-osmolality and hyponatremia; E11.621 Type 2 diabetes mellitus with foot ulcer; R45.851 Suicidal ideations; E87.20 Acidosis, unspecified; E83.39 Other disorders of phosphorus metabolism; D64.9 Anemia, unspecified; Z79.84 Long term (current) use of oral hypoglycemic drugs; I10 Essential (primary) hypertension; K21.9 Gastro-esophageal reflux disease without esophagitis; F19.20 Other psychoactive substance dependence, uncomplicated; E87.6 Hypokalemia
CPT/HCPCS: 36415; 71046-TC-FY; 73610-TC-LT-FY; 73630-TC-LT; 73723-LT; 80053; 80307; 82962; 83605; 83735; 84100; 84484; 85025; 85610; 85651; 85730; 86140; 86850; 86900; 86901; 87040; 87070; 87075; 87086; 93005; 93010; 93926-TC; 94760; 97116-GP; 97161-GP; 99285-25

== ENCOUNTER 2022-12-28 16:55 | Observation (INO) | payer OTHER ==
[2022-12-28] MEDS ORDERED: PANTOPRAZOLE SODIUM 40 MG VIAL IVPUSH ONE (17:48)
[2022-12-28] MEDS ORDERED: SUCRALFATE 1 GM/10 ML UNIT DOSE CUPS PO ONE (17:49)
[2022-12-28] MEDS ORDERED: ONDANSETRON 4 MG/2 ML VIAL IVPUSH ONE (17:51)
[2022-12-28] MEDS ORDERED: PANTOPRAZOLE SODIUM 40 MG VIAL ONE (18:46)
[2022-12-28] MEDS ORDERED: SUCRALFATE 1 GM TABLET (FP) ONE (18:46)
[2022-12-28 19:00] LABS: VENOUS BASE EXCESS 0.3 mmol/L (-2-2); VENOUS O2 SATURATION 52.2 % (70-80); VENOUS PCO2 45.7 mmHg (38-52); VENOUS PH 7.373 (7.310-7.410)
[2022-12-28 19:08] LABS: HEMATOCRIT 43.7 % (35.4-49); HEMOGLOBIN 14.2 GM/dL (11.7-16.9); MCH 28.5 pg (25.7-33.7); MCHC 32.4 g/dl (32.0-35.9); MEAN CELL VOLUME 87.9 fl (80-96); RBC 4.97 M/mm3 (4.00-5.60); RDW 14.4 % (11.9-15.9); WHITE BLOOD COUNT 6.2 K/mm3 (4.0-10.0)
[2022-12-28 19:09] LABS: BASO % 0.3 % (0-2.0); EOS % 0.9 % (0-4.5); LYMPH % 24.4 % (8-40); MEAN PLT VOLUME 8.5 fl (7.5-11.1); MONO % 8.3 % (3.8-10.2); NEUT % 66.1 % (42.8-82.8); PLATELET COUNT 193 10^3/uL (134-434)
[2022-12-28 19:58] LABS: ALBUMIN 4.3 g/dl (3.4-5.0); CALCIUM 9.6 mg/dL (8.5-10.1)
[2022-12-28 20:01] LABS: CREATININE 0.6 mg/dL (0.55-1.3)
[2022-12-28 20:03] LABS: BILIRUBIN,TOTAL 0.8 mg/dL (0.2-1); TOT PROT 8.1 g/dl (6.4-8.2)
[2022-12-28 20:07] LABS: POTASSIUM 4.1 mmol/L (3.5-5.1)
[2022-12-28 20:10] LABS: BLOOD UREA NITROGEN 11.7 mg/dL (7-18)
[2022-12-29] MEDS ORDERED: SODIUM CHLORIDE 1,000 ML IV SCH (01:15)
[2022-12-29] MEDS ORDERED: PANTOPRAZOLE SODIUM 40 MG VIAL IVPUSH SCH (01:15)
[2022-12-29] MEDS ORDERED: GABAPENTIN 300 MG CAPSULE PO SCH ×3 (01:59→14:00)
[2022-12-29] MEDS ORDERED: PANTOPRAZOLE SODIUM 40 MG VIAL ONE (02:03)
[2022-12-29] MEDS ORDERED: GABAPENTIN 300 MG CAPSULE PO ONE (02:23)
[2022-12-29] MEDS ORDERED: GABAPENTIN 300 MG CAPSULE ONE (02:26)
[2022-12-29] MEDS ORDERED: ACETAMINOPHEN 1000 MG/100 ML BAG IVPB ONE (02:36)
[2022-12-29 02:48] LABS: BASO % 0.4 % (0-2.0); EOS % 1.2 % (0-4.5); HEMOGLOBIN 13.3 GM/dL (11.7-16.9); LYMPH % 25.6 % (8-40); MCH 29.1 pg (25.7-33.7); MCHC 33.2 g/dl (32.0-35.9); MEAN CELL VOLUME 87.9 fl (80-96); MEAN PLT VOLUME 8.3 fl (7.5-11.1); MONO % 12.7 % (3.8-10.2); NEUT % 60.1 % (42.8-82.8); PLATELET COUNT 175 10^3/uL (134-434); RBC 4.55 M/mm3 (4.00-5.60); RDW 14.4 % (11.9-15.9); WHITE BLOOD COUNT 5.5 K/mm3 (4.0-10.0)
[2022-12-29 05:24] VITALS: RESP 18; BMI 28.5
[2022-12-29] MEDS ORDERED: INSULIN SLIDING SCALE (NOVOLOG) 1 VIAL SQ SCH (07:00)
[2022-12-29 09:28] LABS: BASO % 0.2 % (0-2.0); EOS % 2.1 % (0-4.5); HEMATOCRIT 39.2 % (35.4-49); MCHC 33.1 g/dl (32.0-35.9); MEAN CELL VOLUME 87.5 fl (80-96); MONO % 10.5 % (3.8-10.2); NEUT % 65.2 % (42.8-82.8); PLATELET COUNT 181 10^3/uL (134-434); RBC 4.48 M/mm3 (4.00-5.60); RDW 14.5 % (11.9-15.9); WHITE BLOOD COUNT 6.4 K/mm3 (4.0-10.0)
[2022-12-29] MEDS ORDERED: ACETAMINOPHEN 1000 MG/100 ML BAG IVPB PRN (09:57)
[2022-12-29 10:00] VITALS: BP 125/83; PULSE 81; TEMP 97.3
[2022-12-29] MEDS ORDERED: LISINOPRIL 20 MG TABLET PO SCH (10:00)
[2022-12-29 10:08] LABS: BLOOD UREA NITROGEN 13.4 mg/dL (7-18); CALCIUM 8.6 mg/dL (8.5-10.1); MAGNESIUM 2.1 mg/dL (1.8-2.4)
[2022-12-29 10:09] LABS: ALBUMIN 3.9 g/dl (3.4-5.0)
[2022-12-29 10:11] LABS: CREATININE 0.6 mg/dL (0.55-1.3); PHOSPHOROUS 3.8 mg/dL (2.5-4.9)
[2022-12-29 10:13] LABS: BILIRUBIN,TOTAL 0.7 mg/dL (0.2-1); TOT PROT 7.4 g/dl (6.4-8.2)
[2022-12-29] MEDS ORDERED: ATORVASTATIN CA 20 MG TABLET (FP) PO SCH (22:00)
[2022-12-30] MEDS ORDERED: PANTOPRAZOLE 40 MG TABLET PO SCH (10:00)
== END 2022-12-29 13:23 | disposition left against medical advice (07) ==
LOC: JER 16:55 → JERBED 23:08 → J6S 12-29 03:43
PROVIDERS: ADMIT Internal Medicine; ATTEND Internal Medicine
PROC: 3E033NZ Introduction of Analgesics, Hypnotics, Sedatives into Peripheral Vein, Percutaneous Approach (ICD-10-PCS; principal; 2022-12-28)
PROC: 3E033GC Introduction of Other Therapeutic Substance into Peripheral Vein, Percutaneous Approach (ICD-10-PCS; 2022-12-28)
PROC: 3E0337Z Introduction of Electrolytic and Water Balance Substance into Peripheral Vein, Percutaneous Approach (ICD-10-PCS; 2022-12-28)
DX: F19.90 Other psychoactive substance use, unspecified, uncomplicated (principal); E11.9 Type 2 diabetes mellitus without complications; I10 Essential (primary) hypertension; E78.5 Hyperlipidemia, unspecified; Z89.432 Acquired absence of left foot; K21.9 Gastro-esophageal reflux disease without esophagitis; F32.A Depression, unspecified; G47.00 Insomnia, unspecified; R10.9 Unspecified abdominal pain; R11.10 Vomiting, unspecified; F17.200 Nicotine dependence, unspecified, uncomplicated
CPT/HCPCS: 36415; 71046-TC-FY; 71275-TC; 74174-TC; 80053; 82010; 82803; 82962; 83605; 83690; 83735; 84100; 84484; 85025; 86850; 86900; 86901; 93005; 93010; 96361; 96374; 96375; 96376; 99285-25; G0378; Q9967

== ENCOUNTER 2023-02-19 06:21 | Inpatient (IN) | payer OTHER ==
[2023-02-19] MEDS ORDERED: VANCOMYCIN 1,000 MG in DEXTROSE 5%-WATER - 250 ML IVPB ONE (08:10)
[2023-02-19] MEDS ORDERED: CEFTRIAXONE 1,000 MG in DEXTROSE 5%-WATER - 50 ML IVPB ONE (08:10)
[2023-02-19] MEDS ORDERED: CEFTRIAXONE 1 GM/50 ML BAG ONE (09:28)
[2023-02-19] MEDS ORDERED: VANCOMYCIN 1 GRAM (PRE-DOCKED) 1,000 MG/250 ML BAG IVPB ONE (09:28)
[2023-02-19] MEDS ORDERED: ONDANSETRON 4 MG/2 ML VIAL IVPUSH ONE (10:16)
[2023-02-19 10:45] LABS: POTASSIUM 4.3 mmol/L (3.5-5.1)
[2023-02-19] MEDS ORDERED: ONDANSETRON 4 MG/2 ML VIAL ONE (10:46)
[2023-02-19 10:53] LABS: CALCIUM 9.1 mg/dL (8.5-10.1)
[2023-02-19 10:54] LABS: ALBUMIN 3.7 g/dl (3.4-5.0); BLOOD UREA NITROGEN 5.3 mg/dL (7-18)
[2023-02-19 10:57] LABS: CREATININE 0.6 mg/dL (0.55-1.3)
[2023-02-19 10:59] LABS: BILIRUBIN,TOTAL 0.5 mg/dL (0.2-1); TOT PROT 8.2 g/dl (6.4-8.2)
[2023-02-19 11:10] LABS: BASO % 0.6 % (0-2.0); EOS % 4.5 % (0-4.5); HEMATOCRIT 36.8 % (35.4-49); HEMOGLOBIN 12.6 GM/dL (11.7-16.9); LYMPH % 13.5 % (8-40); MCH 30.8 pg (25.7-33.7); MCHC 34.2 g/dl (32.0-35.9); MEAN PLT VOLUME 8.5 fl (7.5-11.1); MONO % 11.3 % (3.8-10.2); NEUT % 70.1 % (42.8-82.8); PLATELET COUNT 150 10^3/uL (134-434); RBC 4.08 M/mm3 (4.00-5.60); RDW 15.2 % (11.9-15.9); WHITE BLOOD COUNT 8.1 K/mm3 (4.0-10.0)
[2023-02-19] MEDS ORDERED: ACETAMINOPHEN 325 MG TABLET (FP) PO PRN (11:38)
[2023-02-19] MEDS ORDERED: LACTATED RINGERS SOLUTION 1,000 ML IV SCH (11:45)
[2023-02-19] MEDS: SODIUM CHLORIDE 1,000 ML IV SCH (13:15)
[2023-02-19 13:44] LABS: ERYTHROCYTE SEDIMENTATION RATE 27 mm/hr (0-10)
[2023-02-19] MEDS: INSULIN ASPART SLIDING SCALE (NOVOLOG) 1 VIAL SQ SCH ×2 (17:35→21:48)
[2023-02-19] MEDS ORDERED: PIPERACILLIN/TAZOB 3.375 GM 3.375 GM in DEXTROSE 5%-WATER - 50 ML IVPB SCH (18:00)
[2023-02-19 18:48] VITALS: BMI 27.3
[2023-02-19] MEDS: VANCOMYCIN/WATER FOR INJ (PEG) 1,000 MG/200 ML BAG IVPB SCH (21:35)
[2023-02-19] MEDS ORDERED: INSULIN (NOVOLOG) ASPART 100 UNITS/ML 10ML VIAL ONE (21:46)
[2023-02-20] MEDS: PIPERACILLIN/TAZOB 3.375 GM 3.375 GM in DEXTROSE 5%-WATER - 50 ML IVPB SCH ×3 (03:19→17:05)
[2023-02-20] MEDS: INSULIN ASPART SLIDING SCALE (NOVOLOG) 1 VIAL SQ SCH ×4 (06:32→21:47)
[2023-02-20 09:45] LABS: BASO % 0.4 % (0-2.0); EOS % 5.6 % (0-4.5); HEMOGLOBIN 12.6 GM/dL (11.7-16.9); LYMPH % 18.6 % (8-40); MCHC 33.9 g/dl (32.0-35.9); MEAN CELL VOLUME 91.2 fl (80-96); MEAN PLT VOLUME 8.7 fl (7.5-11.1); MONO % 11.1 % (3.8-10.2); NEUT % 64.3 % (42.8-82.8); PLATELET COUNT 154 10^3/uL (134-434); RBC 4.06 M/mm3 (4.00-5.60); RDW 15.2 % (11.9-15.9); WHITE BLOOD COUNT 5.7 K/mm3 (4.0-10.0)
[2023-02-20 09:58] LABS: POTASSIUM 4.2 mmol/L (3.5-5.1)
[2023-02-20 10:01] LABS: CALCIUM 8.7 mg/dL (8.5-10.1)
[2023-02-20 10:02] LABS: BLOOD UREA NITROGEN 7.5 mg/dL (7-18); MAGNESIUM 2.1 mg/dL (1.8-2.4)
[2023-02-20 10:05] LABS: CREATININE 0.5 mg/dL (0.55-1.3); PHOSPHOROUS 3.1 mg/dL (2.5-4.9)
[2023-02-20 10:06] LABS: TOT PROT 6.5 g/dl (6.4-8.2)
[2023-02-20 10:10] LABS: BILIRUBIN,TOTAL 0.5 mg/dL (0.2-1)
[2023-02-20 10:16] LABS: ALBUMIN 2.8 g/dl (3.4-5.0)
[2023-02-20] MEDS: VANCOMYCIN/WATER FOR INJ (PEG) 1,000 MG/200 ML BAG IVPB SCH ×2 (10:40→21:47)
[2023-02-20] MEDS ORDERED: KETOROLAC TROMETHAMINE 10 MG TABLET PO PRN (13:10)
[2023-02-20] MEDS: KETOROLAC TROMETHAMINE 15 MG/ML VIAL IVPUSH PRN (13:16)
[2023-02-20] MEDS: SODIUM CHLORIDE 1,000 ML IV SCH (13:18)
[2023-02-20] MEDS ORDERED: INSULIN (NOVOLOG) ASPART 100 UNITS/ML 10ML VIAL ONE (21:41)
[2023-02-20] MEDS: HEPARIN NA (PORCINE) 5,000 UNITS/ML 1ML VIAL SQ SCH (22:23)
[2023-02-21] MEDS: PIPERACILLIN/TAZOB 3.375 GM 3.375 GM in DEXTROSE 5%-WATER - 50 ML IVPB SCH ×3 (02:04→17:44)
[2023-02-21] MEDS: INSULIN ASPART SLIDING SCALE (NOVOLOG) 1 VIAL SQ SCH ×4 (06:49→22:05)
[2023-02-21] MEDS: VANCOMYCIN/WATER FOR INJ (PEG) 1,000 MG/200 ML BAG IVPB SCH ×2 (09:50→22:05)
[2023-02-21] MEDS: HEPARIN NA (PORCINE) 5,000 UNITS/ML 1ML VIAL SQ SCH ×2 (09:50→22:06)
[2023-02-21 10:10] LABS: BASO % 0.4 % (0-2.0); EOS % 7.8 % (0-4.5); HEMATOCRIT 39.2 % (35.4-49); HEMOGLOBIN 13.1 GM/dL (11.7-16.9); LYMPH % 20.3 % (8-40); MCH 30.3 pg (25.7-33.7); MCHC 33.5 g/dl (32.0-35.9); MEAN CELL VOLUME 90.6 fl (80-96); MEAN PLT VOLUME 8.9 fl (7.5-11.1); MONO % 10.5 % (3.8-10.2); PLATELET COUNT 168 10^3/uL (134-434); RBC 4.33 M/mm3 (4.00-5.60); RDW 15.2 % (11.9-15.9)
[2023-02-21 10:32] LABS: POTASSIUM 4.1 mmol/L (3.5-5.1)
[2023-02-21 11:07] LABS: ALBUMIN 2.9 g/dl (3.4-5.0); BLOOD UREA NITROGEN 8.2 mg/dL (7-18); CALCIUM 8.4 mg/dL (8.5-10.1); MAGNESIUM 1.9 mg/dL (1.8-2.4)
[2023-02-21 11:10] LABS: CREATININE 0.6 mg/dL (0.55-1.3)
[2023-02-21 11:12] LABS: BILIRUBIN,TOTAL 0.3 mg/dL (0.2-1); TOT PROT 6.9 g/dl (6.4-8.2)
[2023-02-21] MEDS ORDERED: INSULIN (NOVOLOG) ASPART 100 UNITS/ML 10ML VIAL ONE (17:24)
[2023-02-22] MEDS: PIPERACILLIN/TAZOB 3.375 GM 3.375 GM in DEXTROSE 5%-WATER - 50 ML IVPB SCH ×3 (02:23→18:04)
[2023-02-22] MEDS ORDERED: INSULIN (NOVOLOG) ASPART 100 UNITS/ML 10ML VIAL ONE ×3 (06:54→21:25)
[2023-02-22] MEDS: INSULIN ASPART SLIDING SCALE (NOVOLOG) 1 VIAL SQ SCH ×4 (07:05→22:19)
[2023-02-22 09:46] LABS: BASO % 0.5 % (0-2.0); EOS % 9.3 % (0-4.5); HEMATOCRIT 39.9 % (35.4-49); HEMOGLOBIN 13.4 GM/dL (11.7-16.9); LYMPH % 31.5 % (8-40); MCH 30.6 pg (25.7-33.7); MCHC 33.6 g/dl (32.0-35.9); MEAN PLT VOLUME 8.7 fl (7.5-11.1); MONO % 11.9 % (3.8-10.2); NEUT % 46.8 % (42.8-82.8); PLATELET COUNT 168 10^3/uL (134-434); RBC 4.38 M/mm3 (4.00-5.60); RDW 14.6 % (11.9-15.9); WHITE BLOOD COUNT 4.2 K/mm3 (4.0-10.0)
[2023-02-22 10:02] LABS: POTASSIUM 4.2 mmol/L (3.5-5.1)
[2023-02-22 10:06] LABS: CALCIUM 8.5 mg/dL (8.5-10.1)
[2023-02-22 10:07] LABS: BLOOD UREA NITROGEN 9.7 mg/dL (7-18); MAGNESIUM 1.9 mg/dL (1.8-2.4)
[2023-02-22 10:10] LABS: CREATININE 0.7 mg/dL (0.55-1.3)
[2023-02-22 10:12] LABS: BILIRUBIN,TOTAL 0.4 mg/dL (0.2-1); TOT PROT 7.2 g/dl (6.4-8.2)
[2023-02-22] MEDS: HEPARIN NA (PORCINE) 5,000 UNITS/ML 1ML VIAL SQ SCH ×2 (10:28→22:13)
[2023-02-22] MEDS: VANCOMYCIN/WATER FOR INJ (PEG) 1,000 MG/200 ML BAG IVPB SCH ×2 (11:41→22:12)
[2023-02-22] MEDS ORDERED: POLYETHYLENE GLYCOL (HEALTHYLAX) 3350 17 GM PACKET PO ONE (14:00)
[2023-02-22] MEDS: DOCUSATE SODIUM 100 MG CAPSULE (FP) PO SCH ×2 (14:05→22:12)
[2023-02-22] MEDS: POLYETHYLENE GLYCOL (HEALTHYLAX) 3350 17 GM PACKET PO SCH (22:12)
[2023-02-23] MEDS: PIPERACILLIN/TAZOB 3.375 GM 3.375 GM in DEXTROSE 5%-WATER - 50 ML IVPB SCH ×3 (02:01→19:19)
[2023-02-23] MEDS: INSULIN ASPART SLIDING SCALE (NOVOLOG) 1 VIAL SQ SCH ×4 (06:22→22:30)
[2023-02-23 10:15] LABS: BASO % 0.6 % (0-2.0); EOS % 8.4 % (0-4.5); HEMATOCRIT 41.3 % (35.4-49); HEMOGLOBIN 13.7 GM/dL (11.7-16.9); LYMPH % 30.4 % (8-40); MCH 30.2 pg (25.7-33.7); MCHC 33.1 g/dl (32.0-35.9); MEAN CELL VOLUME 91.2 fl (80-96); MEAN PLT VOLUME 8.6 fl (7.5-11.1); NEUT % 50.6 % (42.8-82.8); PLATELET COUNT 182 10^3/uL (134-434); RBC 4.53 M/mm3 (4.00-5.60); RDW 14.9 % (11.9-15.9); WHITE BLOOD COUNT 5.3 K/mm3 (4.0-10.0)
[2023-02-23 10:25] LABS: POTASSIUM 4.4 mmol/L (3.5-5.1)
[2023-02-23 10:33] LABS: BLOOD UREA NITROGEN 13.4 mg/dL (7-18); CALCIUM 9.6 mg/dL (8.5-10.1)
[2023-02-23 10:34] LABS: ALBUMIN 3.3 g/dl (3.4-5.0); CREATININE 0.6 mg/dL (0.55-1.3)
[2023-02-23 10:36] LABS: BILIRUBIN,TOTAL 0.3 mg/dL (0.2-1); TOT PROT 7.5 g/dl (6.4-8.2)
[2023-02-23] MEDS: HEPARIN NA (PORCINE) 5,000 UNITS/ML 1ML VIAL SQ SCH ×2 (11:13→22:24)
[2023-02-23] MEDS: DOCUSATE SODIUM 100 MG CAPSULE (FP) PO SCH ×2 (11:14→22:25)
[2023-02-23] MEDS: POLYETHYLENE GLYCOL (HEALTHYLAX) 3350 17 GM PACKET PO SCH ×2 (11:19→22:25)
[2023-02-23] MEDS: VANCOMYCIN/WATER FOR INJ (PEG) 1,000 MG/200 ML BAG IVPB SCH ×2 (11:20→22:24)
[2023-02-23] MEDS ORDERED: INSULIN (NOVOLOG) ASPART 100 UNITS/ML 10ML VIAL ONE (12:32)
[2023-02-23 15:06] VITALS: RESP 18
[2023-02-23] MEDS: KETOROLAC TROMETHAMINE 15 MG/ML VIAL IVPUSH PRN (20:47)
[2023-02-23] MEDS: INSULIN (LEVEMIR) 100 UNITS/ML UNITS SQ SCH (22:24)
[2023-02-24] MEDS: PIPERACILLIN/TAZOB 3.375 GM 3.375 GM in DEXTROSE 5%-WATER - 50 ML IVPB SCH ×3 (01:57→17:27)
[2023-02-24] MEDS: HEPARIN NA (PORCINE) 5,000 UNITS/ML 1ML VIAL SQ SCH (05:54)
[2023-02-24] MEDS ORDERED: INSULIN (NOVOLOG) ASPART 100 UNITS/ML 10ML VIAL ONE ×2 (06:04→22:12)
[2023-02-24] MEDS: INSULIN ASPART SLIDING SCALE (NOVOLOG) 1 VIAL SQ SCH ×4 (06:21→22:18)
[2023-02-24 10:15] LABS: BASO % 0.6 % (0-2.0); EOS % 7.3 % (0-4.5); HEMATOCRIT 39.4 % (35.4-49); HEMOGLOBIN 13.2 GM/dL (11.7-16.9); LYMPH % 24.4 % (8-40); MCH 30.4 pg (25.7-33.7); MCHC 33.5 g/dl (32.0-35.9); MEAN CELL VOLUME 90.7 fl (80-96); MEAN PLT VOLUME 8.5 fl (7.5-11.1); MONO % 9.2 % (3.8-10.2); NEUT % 58.5 % (42.8-82.8); PLATELET COUNT 175 10^3/uL (134-434); RBC 4.34 M/mm3 (4.00-5.60); RDW 14.8 % (11.9-15.9); WHITE BLOOD COUNT 5.5 K/mm3 (4.0-10.0)
[2023-02-24] MEDS: ENOXAPARIN NA (PORCINE) 40 MG/0.4 ML DISP.SYRIN SQ SCH (10:22)
[2023-02-24] MEDS: KETOROLAC TROMETHAMINE 15 MG/ML VIAL IVPUSH PRN ×2 (10:23→21:09)
[2023-02-24] MEDS: POLYETHYLENE GLYCOL (HEALTHYLAX) 3350 17 GM PACKET PO SCH ×2 (10:23→21:10)
[2023-02-24] MEDS: DOCUSATE SODIUM 100 MG CAPSULE (FP) PO SCH ×2 (10:24→21:10)
[2023-02-24 10:33] LABS: POTASSIUM 4.2 mmol/L (3.5-5.1)
[2023-02-24 10:36] LABS: CALCIUM 8.7 mg/dL (8.5-10.1)
[2023-02-24 10:37] LABS: BLOOD UREA NITROGEN 13.5 mg/dL (7-18); MAGNESIUM 1.8 mg/dL (1.8-2.4)
[2023-02-24 10:40] LABS: CREATININE 0.7 mg/dL (0.55-1.3)
[2023-02-24 10:42] LABS: BILIRUBIN,TOTAL 0.4 mg/dL (0.2-1)
[2023-02-24] MEDS: INSULIN (LEVEMIR) 100 UNITS/ML UNITS SQ SCH (22:18)
[2023-02-25] MEDS: PIPERACILLIN/TAZOB 3.375 GM 3.375 GM in DEXTROSE 5%-WATER - 50 ML IVPB SCH ×2 (01:38→11:50)
[2023-02-25] MEDS: KETOROLAC TROMETHAMINE 15 MG/ML VIAL IVPUSH PRN ×2 (05:29→12:02)
[2023-02-25 05:38] VITALS: PULSE 66; TEMP 97.7
[2023-02-25] MEDS: INSULIN ASPART SLIDING SCALE (NOVOLOG) 1 VIAL SQ SCH ×3 (06:28→17:01)
[2023-02-25 11:48] LABS: BASO % 0.5 % (0-2.0); EOS % 6.8 % (0-4.5); HEMATOCRIT 38.2 % (35.4-49); HEMOGLOBIN 12.9 GM/dL (11.7-16.9); LYMPH % 29.5 % (8-40); MCH 30.1 pg (25.7-33.7); MCHC 33.7 g/dl (32.0-35.9); MEAN CELL VOLUME 89.3 fl (80-96); MEAN PLT VOLUME 8.6 fl (7.5-11.1); MONO % 11.1 % (3.8-10.2); NEUT % 52.1 % (42.8-82.8); PLATELET COUNT 175 10^3/uL (134-434); RBC 4.28 M/mm3 (4.00-5.60); RDW 14.7 % (11.9-15.9); WHITE BLOOD COUNT 4.5 K/mm3 (4.0-10.0)
[2023-02-25] MEDS: DOCUSATE SODIUM 100 MG CAPSULE (FP) PO SCH (11:49)
[2023-02-25] MEDS: ENOXAPARIN NA (PORCINE) 40 MG/0.4 ML DISP.SYRIN SQ SCH (11:49)
[2023-02-25] MEDS: POLYETHYLENE GLYCOL (HEALTHYLAX) 3350 17 GM PACKET PO SCH (11:50)
[2023-02-25 12:12] LABS: POTASSIUM 4.2 mmol/L (3.5-5.1)
[2023-02-25 12:15] LABS: ALBUMIN 3.1 g/dl (3.4-5.0); CALCIUM 8.3 mg/dL (8.5-10.1); MAGNESIUM 2.1 mg/dL (1.8-2.4)
[2023-02-25 12:18] LABS: CREATININE 0.6 mg/dL (0.55-1.3)
[2023-02-25 12:20] LABS: BILIRUBIN,TOTAL 0.3 mg/dL (0.2-1); TOT PROT 7.2 g/dl (6.4-8.2)
[2023-02-25 16:08] VITALS: BP 133/87
== END 2023-02-25 18:35 | disposition home or self-care (01) | DRG 380 ==
LOC: JER 06:21 → JERBED 11:13 → J8W 16:54
PROVIDERS: ADMIT Internal Medicine; ATTEND Nurse Practitioner Family
PROC: 0JBR0ZZ Excision of Left Foot Subcutaneous Tissue and Fascia, Open Approach (ICD-10-PCS; principal; 2023-02-20)
DX: E11.621 Type 2 diabetes mellitus with foot ulcer (principal); I10 Essential (primary) hypertension; E78.5 Hyperlipidemia, unspecified; K21.9 Gastro-esophageal reflux disease without esophagitis; F17.200 Nicotine dependence, unspecified, uncomplicated; F19.20 Other psychoactive substance dependence, uncomplicated; L97.529 Non-pressure chronic ulcer of other part of left foot with unspecified severity; L02.612 Cutaneous abscess of left foot; Z59.00 Homelessness unspecified; Z79.84 Long term (current) use of oral hypoglycemic drugs
CPT/HCPCS: 36415; 73630-TC-LT; 73718-TC-LT; 80053; 82962; 83036; 83735; 84100; 85025; 85651; 86140; 87040; 87070; 87077; 87186; 87205; 99285-25; J1644

== ENCOUNTER 2023-03-27 08:08 | Inpatient (IN) | payer OTHER ==
[2023-03-27] MEDS ORDERED: ACETAMINOPHEN INJECTION 100 ML IVPB ONE (10:56)
[2023-03-27] MEDS ORDERED: METOCLOPRAMIDE HCL INJECTION 10 MG/2 ML VIAL ONE (10:56)
[2023-03-27] MEDS: ACETAMINOPHEN 1000 MG/100 ML BAG IVPB ONE (11:11)
[2023-03-27] MEDS: SODIUM CHLORIDE 0.9% 500 ML INFUS.BAG IV ONE (11:11)
[2023-03-27] MEDS: KETOROLAC TROMETHAMINE 30 MG/1 ML VIAL IVPUSH ONE (11:12)
[2023-03-27] MEDS ORDERED: KETOROLAC TROMETHAMINE 30 MG/1 ML VIAL ONE (11:13)
[2023-03-27 11:56] LABS: BASO % 0.7 % (0-2.0); EOS % 4.6 % (0-4.5); HEMATOCRIT 33.3 % (35.4-49); HEMOGLOBIN 11.5 GM/dL (11.7-16.9); LYMPH % 14.8 % (8-40); MCH 30.7 pg (25.7-33.7); MCHC 34.7 g/dl (32.0-35.9); MEAN CELL VOLUME 88.5 fl (80-96); MEAN PLT VOLUME 8.9 fl (7.5-11.1); NEUT % 72.9 % (42.8-82.8); PLATELET COUNT 281 10^3/uL (134-434); RBC 3.76 M/mm3 (4.00-5.60); WHITE BLOOD COUNT 7.5 K/mm3 (4.0-10.0)
[2023-03-27 12:07] LABS: POTASSIUM 5.4 mmol/L (3.5-5.1)
[2023-03-27 12:08] LABS: CALCIUM 8.3 mg/dL (8.5-10.1)
[2023-03-27 12:09] LABS: ALBUMIN 3.3 g/dl (3.4-5.0); BLOOD UREA NITROGEN 3.5 mg/dL (7-18)
[2023-03-27 12:12] LABS: CREATININE 0.6 mg/dL (0.55-1.3)
[2023-03-27 12:14] LABS: BILIRUBIN,TOTAL 0.5 mg/dL (0.2-1)
[2023-03-27 12:39] LABS: ERYTHROCYTE SEDIMENTATION RATE 78 mm/hr (0-10)
[2023-03-27] MEDS ORDERED: VANCOMYCIN 1 GRAM (PRE-DOCKED) 1,000 MG/250 ML BAG IVPB ONE (14:59)
[2023-03-27] MEDS ORDERED: PIPERACILLIN/TAZOB 3.375 GM 3.375 GM/50 ML BAG IVPB ONE (14:59)
[2023-03-27] MEDS: PIPERACILLIN/TAZOB 3.375 GM 3.375 GM in DEXTROSE 5%-WATER - 50 ML IVPB ONE (15:11)
[2023-03-27] MEDS: VANCOMYCIN 1,000 MG in DEXTROSE 5%-WATER - 250 ML IVPB ONE (15:11)
[2023-03-27] MEDS: VANCOMYCIN/WATER FOR INJ (PEG) 1,000 MG/200 ML BAG IVPB SCH (18:53)
[2023-03-27] MEDS ORDERED: CEFEPIME HCL 2 GM VIAL (RESTRICTED TO ID) IVPB SCH ×2 (21:00)
[2023-03-27] MEDS ORDERED: INSULIN ASPART SLIDING SCALE (NOVOLOG) 1 VIAL SQ SCH (22:00)
[2023-03-27] MEDS ORDERED: CEFEPIME 2 GM in DEXTROSE 5%-WATER 100 ML IVPB SCH (22:15)
[2023-03-27] MEDS: KETOROLAC TROMETHAMINE 15 MG/ML VIAL IVPUSH PRN (23:12)
[2023-03-27] MEDS: CEFEPIME 2 GM in DEXTROSE 5%-WATER 100 ML IVPB SCH (23:12)
[2023-03-27] MEDS: INSULIN ASPART SLIDING SCALE (NOVOLOG) 1 VIAL SQ SCH (23:17)
[2023-03-28] MEDS: VANCOMYCIN/WATER FOR INJ (PEG) 1,000 MG/200 ML BAG IVPB SCH (06:16)
[2023-03-28] MEDS ORDERED: VANCOMYCIN/WATER FOR INJ (PEG) 1,000 MG/200 ML BAG IVPB SCH (07:00)
[2023-03-28 08:37] LABS: BASO % 0.6 % (0-2.0); EOS % 7.2 % (0-4.5); HEMOGLOBIN 11.5 GM/dL (11.7-16.9); LYMPH % 23.4 % (8-40); MCH 30.9 pg (25.7-33.7); MCHC 34.9 g/dl (32.0-35.9); MEAN CELL VOLUME 88.6 fl (80-96); MEAN PLT VOLUME 8.2 fl (7.5-11.1); MONO % 9.1 % (3.8-10.2); NEUT % 59.7 % (42.8-82.8); PLATELET COUNT 224 10^3/uL (134-434); RBC 3.73 M/mm3 (4.00-5.60); RDW 14.1 % (11.9-15.9); WHITE BLOOD COUNT 5.3 K/mm3 (4.0-10.0)
[2023-03-28 08:52] LABS: POTASSIUM 4.4 mmol/L (3.5-5.1)
[2023-03-28 08:55] LABS: BLOOD UREA NITROGEN 9.9 mg/dL (7-18)
[2023-03-28 08:58] LABS: CREATININE 0.6 mg/dL (0.55-1.3)
[2023-03-28 16:28] VITALS: BMI 29.6
[2023-03-28] MEDS: PIPERACILLIN/TAZOB 3.375 GM 3.375 GM in DEXTROSE 5%-WATER - 50 ML IVPB SCH (18:12)
[2023-03-29 09:10] LABS: BASO % 0.7 % (0-2.0); EOS % 7.6 % (0-4.5); HEMATOCRIT 33.2 % (35.4-49); HEMOGLOBIN 11.6 GM/dL (11.7-16.9); LYMPH % 29.3 % (8-40); MCH 30.9 pg (25.7-33.7); MEAN CELL VOLUME 88.1 fl (80-96); MEAN PLT VOLUME 7.7 fl (7.5-11.1); MONO % 8.8 % (3.8-10.2); NEUT % 53.6 % (42.8-82.8); PLATELET COUNT 254 10^3/uL (134-434); RBC 3.77 M/mm3 (4.00-5.60); RDW 14.2 % (11.9-15.9); WHITE BLOOD COUNT 4.9 K/mm3 (4.0-10.0)
[2023-03-29 09:28] LABS: POTASSIUM 4.4 mmol/L (3.5-5.1)
[2023-03-29 09:31] LABS: ALBUMIN 2.9 g/dl (3.4-5.0)
[2023-03-29 09:34] LABS: CREATININE 0.6 mg/dL (0.55-1.3)
[2023-03-29 09:35] LABS: BILIRUBIN,TOTAL 0.3 mg/dL (0.2-1); TOT PROT 7.3 g/dl (6.4-8.2)
[2023-03-30 08:49] LABS: BASO % 0.7 % (0-2.0); EOS % 7.6 % (0-4.5); HEMATOCRIT 35.4 % (35.4-49); LYMPH % 28.8 % (8-40); MCH 30.2 pg (25.7-33.7); MCHC 33.9 g/dl (32.0-35.9); MEAN CELL VOLUME 89.1 fl (80-96); MEAN PLT VOLUME 7.7 fl (7.5-11.1); MONO % 8.1 % (3.8-10.2); NEUT % 54.8 % (42.8-82.8); PLATELET COUNT 258 10^3/uL (134-434); RBC 3.98 M/mm3 (4.00-5.60); RDW 13.8 % (11.9-15.9); WHITE BLOOD COUNT 4.8 K/mm3 (4.0-10.0)
[2023-03-30 09:01] LABS: POTASSIUM 4.8 mmol/L (3.5-5.1)
[2023-03-30 09:03] LABS: CALCIUM 8.8 mg/dL (8.5-10.1)
[2023-03-30 09:04] LABS: BLOOD UREA NITROGEN 12.2 mg/dL (7-18)
[2023-03-30 09:07] LABS: CREATININE 0.7 mg/dL (0.55-1.3)
[2023-03-30] MEDS ORDERED: INSULIN (NOVOLOG) ASPART 100 UNITS/ML 10ML VIAL ONE (21:47)
[2023-03-31] MEDS ORDERED: INSULIN (NOVOLOG) ASPART 100 UNITS/ML 10ML VIAL ONE ×2 (10:13→21:53)
[2023-03-31] MEDS: KETOROLAC TROMETHAMINE 15 MG/ML VIAL IM PRN (22:06)
[2023-04-01] MEDS ORDERED: KETOROLAC TROMETHAMINE 15 MG/ML VIAL IVPUSH PRN (09:31)
[2023-04-01] MEDS ORDERED: ACETAMINOPHEN 325 MG TABLET (FP) PO PRN (09:32)
[2023-04-01 10:14] LABS: BASO % 0.7 % (0-2.0); EOS % 5.8 % (0-4.5); HEMATOCRIT 37.9 % (35.4-49); HEMOGLOBIN 12.8 GM/dL (11.7-16.9); LYMPH % 26.2 % (8-40); MCHC 33.7 g/dl (32.0-35.9); MEAN CELL VOLUME 89.1 fl (80-96); MONO % 8.1 % (3.8-10.2); NEUT % 59.2 % (42.8-82.8); PLATELET COUNT 270 10^3/uL (134-434); RBC 4.26 M/mm3 (4.00-5.60); RDW 13.8 % (11.9-15.9); WHITE BLOOD COUNT 5.3 K/mm3 (4.0-10.0)
[2023-04-01 10:38] LABS: BLOOD UREA NITROGEN 13.4 mg/dL (7-18); CALCIUM 9.3 mg/dL (8.5-10.1)
[2023-04-01 10:41] LABS: CREATININE 0.7 mg/dL (0.55-1.3)
[2023-04-01 10:43] LABS: BILIRUBIN,TOTAL 0.4 mg/dL (0.2-1)
[2023-04-01 10:49] LABS: ALBUMIN 3.6 g/dl (3.4-5.0)
[2023-04-01] MEDS: GABAPENTIN 100 MG CAPSULE PO SCH (13:41)
[2023-04-01] MEDS: KETOROLAC TROMETHAMINE 15 MG/ML VIAL IVPUSH PRN (15:13)
[2023-04-02 08:13] LABS: BASO % 0.7 % (0-2.0); EOS % 5.5 % (0-4.5); HEMATOCRIT 37.7 % (35.4-49); HEMOGLOBIN 12.7 GM/dL (11.7-16.9); LYMPH % 26.7 % (8-40); MCH 30.1 pg (25.7-33.7); MCHC 33.7 g/dl (32.0-35.9); MEAN CELL VOLUME 89.5 fl (80-96); MEAN PLT VOLUME 7.8 fl (7.5-11.1); MONO % 8.5 % (3.8-10.2); NEUT % 58.6 % (42.8-82.8); PLATELET COUNT 253 10^3/uL (134-434); RBC 4.22 M/mm3 (4.00-5.60); RDW 13.8 % (11.9-15.9); WHITE BLOOD COUNT 5.7 K/mm3 (4.0-10.0)
[2023-04-02 08:36] LABS: POTASSIUM 4.5 mmol/L (3.5-5.1)
[2023-04-02 08:38] LABS: BLOOD UREA NITROGEN 13.8 mg/dL (7-18); CALCIUM 9.1 mg/dL (8.5-10.1)
[2023-04-02 08:42] LABS: CREATININE 0.7 mg/dL (0.55-1.3)
[2023-04-02] MEDS ORDERED: LIDOCAINE HCL 2% (20ML MULTI-DOSE VIAL) ONE (09:56)
[2023-04-02] MEDS ORDERED: BUPIVACAINE HCL/PF 0.5% (5MG/ML) 10 ML VIAL ONE (09:57)
[2023-04-02] MEDS ORDERED: GENTAMICIN SO4 80 MG/2 ML VIAL ONE (10:19)
[2023-04-02] MEDS ORDERED: MIDAZOLAM HCL 2 MG/2 ML SINGLE DOSE VIAL ONE (10:21)
[2023-04-02] MEDS ORDERED: PROPOFOL 20 ML ONE (10:21)
[2023-04-02] MEDS: GENTAMICIN SO4 80 MG/2 ML VIAL IVPB ONE (10:54)
[2023-04-02] MEDS: PIPERACILLIN/TAZOBACTAM 3.375 GM VIAL IVPB ONE (10:54)
[2023-04-02] MEDS ORDERED: ONDANSETRON 4 MG/2 ML VIAL ONE (11:35)
[2023-04-02] MEDS ORDERED: ONDANSETRON 4 MG/2 ML VIAL IVPUSH PRN ×2 (11:47→12:03)
[2023-04-02] MEDS: LACTATED RINGERS SOLUTION 1,000 ML IV SCH ×2 (13:45)
[2023-04-02] MEDS: ENOXAPARIN NA (PORCINE) 40 MG/0.4 ML DISP.SYRIN SQ SCH (15:42)
[2023-04-02] MEDS ORDERED: INSULIN (NOVOLOG) ASPART 100 UNITS/ML 10ML VIAL ONE (16:37)
[2023-04-02] MEDS: INSULIN ASPART SLIDING SCALE (NOVOLOG) 1 VIAL SQ SCH (16:41)
[2023-04-02] MEDS: PIPERACILLIN/TAZOB 3.375 GM 3.375 GM in DEXTROSE 5%-WATER - 50 ML IVPB SCH (17:08)
[2023-04-02] MEDS: KETOROLAC TROMETHAMINE 15 MG/ML VIAL IVPUSH PRN (19:11)
[2023-04-03 09:29] LABS: POTASSIUM 4.5 mmol/L (3.5-5.1)
[2023-04-03 09:32] LABS: ALBUMIN 3.6 g/dl (3.4-5.0)
[2023-04-03 09:33] LABS: BLOOD UREA NITROGEN 19.7 mg/dL (7-18); CALCIUM 9.1 mg/dL (8.5-10.1); MAGNESIUM 2.1 mg/dL (1.8-2.4)
[2023-04-03 09:36] LABS: CREATININE 0.7 mg/dL (0.55-1.3)
[2023-04-03 09:37] LABS: BILIRUBIN,TOTAL 0.3 mg/dL (0.2-1); TOT PROT 7.8 g/dl (6.4-8.2)
[2023-04-03 09:54] LABS: HEMATOCRIT 39.3 % (35.4-49); HEMOGLOBIN 13.1 GM/dL (11.7-16.9); MCH 29.8 pg (25.7-33.7); MCHC 33.4 g/dl (32.0-35.9); MEAN CELL VOLUME 89.3 fl (80-96); MEAN PLT VOLUME 8.4 fl (7.5-11.1); PLATELET COUNT 222 10^3/uL (134-434); RDW 14.2 % (11.9-15.9)
[2023-04-03 10:46] LABS: ERYTHROCYTE SEDIMENTATION RATE 18 mm/hr (0-10)
[2023-04-03] MEDS: INSULIN ASPART SLIDING SCALE (NOVOLOG) 1 VIAL SQ SCH (16:38)
[2023-04-04 09:11] LABS: BASO % 0.7 % (0-2.0); EOS % 5.3 % (0-4.5); HEMATOCRIT 34.8 % (35.4-49); HEMOGLOBIN 11.7 GM/dL (11.7-16.9); LYMPH % 28.8 % (8-40); MCHC 33.5 g/dl (32.0-35.9); MEAN CELL VOLUME 89.3 fl (80-96); MEAN PLT VOLUME 8.2 fl (7.5-11.1); MONO % 11.4 % (3.8-10.2); NEUT % 53.8 % (42.8-82.8); PLATELET COUNT 213 10^3/uL (134-434); RDW 14.1 % (11.9-15.9); WHITE BLOOD COUNT 4.7 K/mm3 (4.0-10.0)
[2023-04-04 09:39] LABS: POTASSIUM 4.4 mmol/L (3.5-5.1)
[2023-04-04 09:51] LABS: CALCIUM 9.2 mg/dL (8.5-10.1)
[2023-04-04 09:52] LABS: ALBUMIN 3.4 g/dl (3.4-5.0); BLOOD UREA NITROGEN 16.6 mg/dL (7-18)
[2023-04-04 09:54] LABS: CREATININE 0.7 mg/dL (0.55-1.3)
[2023-04-04 09:55] LABS: BILIRUBIN,TOTAL 0.4 mg/dL (0.2-1); TOT PROT 7.9 g/dl (6.4-8.2)
[2023-04-04] MEDS ORDERED: HEPARIN NA (PORCINE) 5,000 UNITS/ML 1ML VIAL SQ SCH (14:00)
[2023-04-05 09:26] LABS: BASO % 0.5 % (0-2.0); EOS % 4.5 % (0-4.5); HEMATOCRIT 32.8 % (35.4-49); HEMOGLOBIN 11.7 GM/dL (11.7-16.9); LYMPH % 25.7 % (8-40); MCH 31.2 pg (25.7-33.7); MCHC 35.6 g/dl (32.0-35.9); MEAN CELL VOLUME 87.8 fl (80-96); MEAN PLT VOLUME 8.3 fl (7.5-11.1); MONO % 10.3 % (3.8-10.2); PLATELET COUNT 196 10^3/uL (134-434); RBC 3.73 M/mm3 (4.00-5.60); RDW 13.8 % (11.9-15.9); WHITE BLOOD COUNT 5.3 K/mm3 (4.0-10.0)
[2023-04-05 09:42] LABS: POTASSIUM 4.4 mmol/L (3.5-5.1)
[2023-04-05 09:45] LABS: CALCIUM 8.9 mg/dL (8.5-10.1)
[2023-04-05 09:46] LABS: ALBUMIN 3.7 g/dl (3.4-5.0); BLOOD UREA NITROGEN 17.2 mg/dL (7-18)
[2023-04-05 09:49] LABS: CREATININE 0.7 mg/dL (0.55-1.3)
[2023-04-05 09:50] LABS: BILIRUBIN,TOTAL 0.4 mg/dL (0.2-1); TOT PROT 7.8 g/dl (6.4-8.2)
[2023-04-05] MEDS: ACETAMINOPHEN 325 MG TABLET (FP) PO PRN (10:49)
[2023-04-05] MEDS ORDERED: INSULIN (NOVOLOG) ASPART 100 UNITS/ML 10ML VIAL ONE (11:10)
[2023-04-05 14:17] VITALS: BP 166/90; PULSE 73; RESP 20; TEMP 97.7
== END 2023-04-05 19:14 | disposition home or self-care (01) | DRG 314 ==
LOC: JER 08:08 → JERBED 16:32 → J7W 20:03
PROVIDERS: ADMIT Internal Medicine; ATTEND Nurse Practitioner Acute Care
PROC: 0JBR0ZZ Excision of Left Foot Subcutaneous Tissue and Fascia, Open Approach (ICD-10-PCS; 2023-04-02)
PROC: 0Y6S0Z3 Detachment at Left 2nd Toe, Low, Open Approach (ICD-10-PCS; principal; 2023-04-02 15:00)
DX: E11.621 Type 2 diabetes mellitus with foot ulcer (principal); E11.628 Type 2 diabetes mellitus with other skin complications; E11.69 Type 2 diabetes mellitus with other specified complication; M86.172 Other acute osteomyelitis, left ankle and foot; L03.116 Cellulitis of left lower limb; I10 Essential (primary) hypertension; Z59.00 Homelessness unspecified; M86.672 Other chronic osteomyelitis, left ankle and foot
CPT/HCPCS: 36415; 73630-TC-LT; 73718-TC-LT; 80048; 80053; 82962; 83605; 83735; 85025; 85027; 85651; 86140; 87040; 87070; 87075; 87186; 87205; 93971-TC; 94760; 99285-25; J0131

== ENCOUNTER 2023-04-05 21:43 | Emergency (ER) | payer OTHER ==
[2023-04-05 21:46] VITALS: BP 170/90; PULSE 91; RESP 18; TEMP 98; BMI 29.6
[2023-04-05] MEDS ORDERED: IBUPROFEN 400 MG TABLET (FP) PO ONE (22:50)
[2023-04-05] MEDS: IBUPROFEN 400 MG TABLET (FP) PO ONE (22:54)
== END 2023-04-05 23:56 | disposition home or self-care (01) ==
LOC: JER 21:43
DX: S81.802A Unspecified open wound, left lower leg, initial encounter (principal); M79.672 Pain in left foot; F14.10 Cocaine abuse, uncomplicated
CPT/HCPCS: 99283-25

== ENCOUNTER 2023-06-26 14:06 | Emergency (ER) | payer OTHER ==
[2023-06-26 14:12] VITALS: BP 120/89; PULSE 82; RESP 18; TEMP 98; BMI 25.8
[2023-06-26] MEDS ORDERED: ONDANSETRON 4 MG/2 ML VIAL ONE ×2 (14:45→17:44)
[2023-06-26] MEDS: ONDANSETRON 4 MG/2 ML VIAL IVPUSH ONE ×2 (14:55→17:49)
[2023-06-26] MEDS: SODIUM CHLORIDE 0.9% 500 ML INFUS.BAG IV ONE ×2 (14:55→17:49)
[2023-06-26] MEDS: FAMOTIDINE 20 MG/50 ML IVPB 20 MG/50 ML MG IVPB ONE (14:59)
[2023-06-26] MEDS ORDERED: FAMOTIDINE 10 MG/ML VIAL IVPB ONE (15:00)
[2023-06-26] MEDS ORDERED: HALOPERIDOL LACTATE 5 MG/ML ONE (15:18)
[2023-06-26] MEDS: HALOPERIDOL LACTATE 5 MG/ML IM ONE (15:21)
[2023-06-26 15:33] LABS: POTASSIUM 3.7 mmol/L (3.5-5.1)
[2023-06-26 15:35] LABS: CALCIUM 10.9 mg/dL (8.5-10.1)
[2023-06-26 15:36] LABS: ALBUMIN 4.2 g/dl (3.4-5.0); BLOOD UREA NITROGEN 8.3 mg/dL (7-18)
[2023-06-26 15:39] LABS: CREATININE 0.8 mg/dL (0.55-1.3)
[2023-06-26 15:41] LABS: BILIRUBIN,TOTAL 0.7 mg/dL (0.2-1); TOT PROT 8.4 g/dl (6.4-8.2)
[2023-06-26 15:46] LABS: BASO % 0.4 % (0-2.0); EOS % 0.4 % (0-4.5); HEMATOCRIT 42.2 % (35.4-49); HEMOGLOBIN 14.9 GM/dL (11.7-16.9); LYMPH % 11.9 % (8-40); MCH 31.1 pg (25.7-33.7); MCHC 35.2 g/dl (32.0-35.9); MEAN CELL VOLUME 88.3 fl (80-96); MEAN PLT VOLUME 10.3 fl (7.5-11.1); NEUT % 78.3 % (42.8-82.8); PLATELET COUNT 149 10^3/uL (134-434); RBC 4.78 M/mm3 (4.00-5.60); RDW 14.8 % (11.9-15.9); WHITE BLOOD COUNT 7.4 K/mm3 (4.0-10.0)
== END 2023-06-26 19:26 | disposition home or self-care (01) ==
LOC: JER 14:06
PROC: 3E033GC Introduction of Other Therapeutic Substance into Peripheral Vein, Percutaneous Approach (ICD-10-PCS; principal; 2023-06-26)
PROC: 3E030GC Introduction of Other Therapeutic Substance into Peripheral Vein, Open Approach (ICD-10-PCS; 2023-06-26)
PROC: 3E030GC Introduction of Other Therapeutic Substance into Peripheral Vein, Open Approach (ICD-10-PCS; 2023-06-26)
PROC: 3E023GC Introduction of Other Therapeutic Substance into Muscle, Percutaneous Approach (ICD-10-PCS; 2023-06-26)
DX: R11.2 Nausea with vomiting, unspecified (principal); R10.13 Epigastric pain
CPT/HCPCS: 36415; 71046-TC-FY; 80053; 83690; 84484; 85025; 93005; 93010; 99285-25

== ENCOUNTER 2023-07-15 22:20 | Inpatient (IN) | payer OTHER ==
[2023-07-15 23:18] VITALS: BMI 31.3
[2023-07-16] MEDS ORDERED: BISMUTH SUBSALICYLATE 524 MG/30 ML PO PRN (00:42)
[2023-07-16] MEDS ORDERED: BENZOCAINE/MENTHOL (CHLORASEPTIC ) LOZENGE MM PRN (00:42)
[2023-07-16] MEDS ORDERED: LOPERAMIDE HCL 2 MG CAPSULE PO PRN (00:42)
[2023-07-16] MEDS ORDERED: ACETAMINOPHEN 325 MG TABLET (FP) PO PRN (00:42)
[2023-07-16] MEDS ORDERED: BENZONATATE 200 MG CAPSULE PO PRN (00:42)
[2023-07-16] MEDS ORDERED: guaiFENesin 600 MG TABLET.ER (FP) PO PRN (00:42)
[2023-07-16] MEDS ORDERED: DICYCLOMINE HCL 10 MG CAPSULE PO PRN (00:42)
[2023-07-16] MEDS ORDERED: MAGNESIUM HYDROX 2400MG/30ML ORAL SUSPENSION 30 ML CUP PO PRN (00:42)
[2023-07-16] MEDS ORDERED: NALOXONE HCL 0.4 MG/ML VIAL IM PRN (00:42)
[2023-07-16] MEDS ORDERED: NALOXONE HCL (KLOXXADO) 8 MG SPRAY NS PRN (00:42)
[2023-07-16] MEDS ORDERED: IBUPROFEN 400 MG TABLET (FP) PO PRN (00:42)
[2023-07-16] MEDS ORDERED: POLYETHYLENE GLYCOL (HEALTHYLAX) 3350 17 GM PACKET PO PRN (00:42)
[2023-07-16] MEDS: MAG HYDROX/AL HYDROX/SIMETH 30 ML UNIT-DOSE CUP PO PRN (05:49)
[2023-07-16] MEDS: PRENATAL VITAMINS W/ FOLIC ACID TABLET (FP) PO SCH (09:32)
[2023-07-16] MEDS: metFORMIN HCL 500 MG TABLET (FP) PO SCH (09:32)
[2023-07-16] MEDS: NICOTINE 14 MG/24 HOURS TOPICAL PATCH TD SCH (09:36)
[2023-07-16] MEDS ORDERED: LORazepam 1 MG TABLET PO PRN (09:39)
[2023-07-16] MEDS: LORazepam 2 MG TABLET PO SCH (10:34)
[2023-07-16] MEDS: FAMOTIDINE 20 MG TABLET PO SCH (10:47)
[2023-07-16] MEDS ORDERED: FAMOTIDINE 20 MG TABLET PO SCH (11:00)
[2023-07-16] MEDS ORDERED: INSULIN (NOVOLOG) ASPART 100 UNITS/ML 10ML VIAL ONE (17:26)
[2023-07-16] MEDS: METHOCARBAMOL 500 MG TABLET PO PRN (17:26)
[2023-07-16] MEDS: ONDANSETRON *ODT* 4 MG TABLET SL PRN (17:28)
[2023-07-16] MEDS: INSULIN ASPART SLIDING SCALE (NOVOLOG) 1 VIAL SQ SCH (17:59)
[2023-07-16] MEDS: MELATONIN 5 MG TABLETS PO SCH (22:29)
[2023-07-16] MEDS: THIAMINE 100 MG TABLET PO SCH (22:29)
[2023-07-17] MEDS: LORazepam 1 MG TABLET PO SCH (05:46)
[2023-07-17] MEDS: SUCRALFATE 1 GM TABLET (FP) PO SCH (06:06)
[2023-07-17] MEDS ORDERED: INSULIN (NOVOLOG) ASPART 100 UNITS/ML 10ML VIAL ONE ×2 (06:09→17:00)
[2023-07-17] MEDS: NICOTINE POLACRILEX 2 MG GUM BUC PRN (10:18)
[2023-07-17 10:26] LABS: POTASSIUM 3.7 mmol/L (3.5-5.1)
[2023-07-17 10:31] LABS: ALBUMIN 3.5 g/dl (3.4-5.0); BLOOD UREA NITROGEN 11.2 mg/dL (7-18)
[2023-07-17 10:33] LABS: CALCIUM 8.6 mg/dL (8.5-10.1)
[2023-07-17 10:35] LABS: CREATININE 0.6 mg/dL (0.55-1.3); HEMATOCRIT 39.9 % (35.4-49); HEMOGLOBIN 13.7 GM/dL (11.7-16.9); MCH 30.3 pg (25.7-33.7); MCHC 34.4 g/dl (32.0-35.9); MEAN CELL VOLUME 87.9 fl (80-96); MEAN PLT VOLUME 10.8 fl (7.5-11.1); PLATELET COUNT 154 10^3/uL (134-434); RBC 4.54 M/mm3 (4.00-5.60); WHITE BLOOD COUNT 6.2 K/mm3 (4.0-10.0)
[2023-07-17 10:40] LABS: BILIRUBIN,TOTAL 0.6 mg/dL (0.2-1); TOT PROT 7.1 g/dl (6.4-8.2)
[2023-07-17] MEDS: TRIMETHOBENZAMIDE HCL 200MG/2ML INJ IM PRN (15:18)
[2023-07-17] MEDS: amLODIPine BESYLATE 5 MG TABLET (FP) PO SCH (17:01)
[2023-07-17] MEDS: IBUPROFEN 600 MG TABLET (FP) PO PRN (17:01)
[2023-07-17] MEDS: hydrOXYzine PAMOATE 25 MG CAPSULE (FP) PO PRN (22:24)
[2023-07-18] MEDS: LORazepam 0.5 MG TABLET PO SCH (05:26)
[2023-07-18] MEDS ORDERED: INSULIN (NOVOLOG) ASPART 100 UNITS/ML 10ML VIAL ONE (17:16)
[2023-07-19] MEDS: LORazepam 0.5 MG TABLET PO ONE (05:01)
[2023-07-19] MEDS ORDERED: INSULIN (NOVOLOG) ASPART 100 UNITS/ML 10ML VIAL ONE (07:08)
[2023-07-19 09:10] VITALS: BP 129/79; PULSE 88; RESP 16; TEMP 97.8
== END 2023-07-19 11:30 | disposition home or self-care (01) | DRG 774 ==
LOC: YASAS 22:20 → Y6N 07-16 01:59
PROVIDERS: ADMIT Allergy & Immunology; ATTEND Allergy & Immunology
PROC: HZ2ZZZZ Detoxification Services for Substance Abuse Treatment (ICD-10-PCS; principal; 2023-07-16)
DX: F10.230 Alcohol dependence with withdrawal, uncomplicated (principal); F14.20 Cocaine dependence, uncomplicated; F12.20 Cannabis dependence, uncomplicated; F17.210 Nicotine dependence, cigarettes, uncomplicated; F19.24 Other psychoactive substance dependence with psychoactive substance-induced mood disorder; I10 Essential (primary) hypertension; K21.9 Gastro-esophageal reflux disease without esophagitis; E11.42 Type 2 diabetes mellitus with diabetic polyneuropathy; Z79.84 Long term (current) use of oral hypoglycemic drugs; Z87.39 Personal history of other diseases of the musculoskeletal system and connective tissue; Z89.422 Acquired absence of other left toe(s); Z89.412 Acquired absence of left great toe; Z99.89 Dependence on other enabling machines and devices; Z88.8 Allergy status to other drugs, medicaments and biological substances
CPT/HCPCS: 36415; 71046-TC-FY; 80053; 80305; 80307; 81003; 82962; 83690; 83735; 84484; 85025; 85027; 85610; 86780; 93005; 93010; Q0162